=== PATIENT | male | born 1965 | race Caucasian/White ===

== ENCOUNTER 2020-05-17 01:24 | Emergency (ER) | payer BC, OTHER, SELFPAY ==
[2020-05-17 01:27] VITALS: BP 129/81; PULSE 96; RESP 20; TEMP 35.8; O2SAT 100
--- NOTE | 2020-05-17 01:44 | ED.ALLEREA ---
HPI - Allergic Reaction General Chief complaint: Allergic Reaction Stated complaint: hives Time Seen by Provider: 05/17/20 01:27 Source: RN notes reviewed History of Present Illness HPI narrative: Patient presents to emergency department from home for allergic reaction. Patient states that this evening began to notice some swelling and redness in his right hand. States that at that time he thought was possibly his eczema flaring up but the symptoms had progressed. He states he did take 50 mg of Benadryl at approximately 8 PM as well for the symptoms he states he then began to develop hives on his right lateral abdomen he denies having any swelling of the lips or tongue shortness of breath nausea vomiting or any other symptoms. He states he has had 2 similar episodes before in the past both resolved with steroids. He denies any new medications denies any new foods soaps or lotions Related Data Home Medications Medication Instructions Recorded Confirmed atorvastatin 40 mg tablet 40 mg PO DAILY 06/12/19 01/22/20 diclofenac sodium 75 mg 75 mg PO BID 06/12/19 01/22/20 tablet,delayed release guaifenesin 400 mg tablet 400 mg PO Q4H PRN 06/12/19 01/22/20 lisinopril 40 mg tablet 40 mg PO DAILY 06/12/19 01/22/20 nortriptyline 50 mg capsule 50 mg PO DAILY 06/12/19 01/22/20 dicyclomine 10 mg capsule 30 mg PO BID cap 01/22/20 01/22/20 Allergies Allergy/AdvReac Type Severity Reaction Status Date / Time bacitracin Allergy Unknown Unknown Verified 05/17/20 01:31 cephalexin Allergy Unknown Unknown Verified 05/17/20 01:31 CEPHALEXIN MONOHYDRATE Allergy Intermediate RASH Uncoded 06/12/19 14:56 Review of Systems Review of Systems: Narrative: Gen.: Denies fevers or chills ENT: Denies swelling of the lips or tongue Respiratory: Denies shortness of breath or cough CV: Denies chest pain or palpitations GI: Denies abdominal pain nausea, emesis or diarrhea Musculoskeletal: Denies back pain or muscle pain Neuro: Denies numbness, tingling, weakness or focal weakness Skin: See HPI Except as documented, all other systems reviewed and negative PMFSH Past Medical History Medical History (Updated 05/17/20 @ 04:50 by Shan Russell DO) Chronic sinusitis Hyperlipidemia Hypertension Knee pain, chronic Type 2 diabetes mellitus Surgical History Surgical History H/O sinus surgery H/O wrist surgery Hx of appendectomy Family History Family History Mother Hypertension Family history of malignant neoplasm Family history of diabetes mellitus in first degree relative Family history of heart disease in male family member before age 55 Diabetes mellitus Sibling Hypertension Family history of malignant neoplasm Diabetes mellitus Social History Social History Smoking status: Former smoker Alcohol intake: current Exam Narrative: Exam Narrative: APPEARANCE: No acute distress, nontoxic, resting in bed EYES: EOMI HEENT: Normocephalic, atraumatic, OMM no swelling of lips or tongue RESPIRATORY: No respiratory distress Clear to auscultation bilaterally with no rhonchi wheezing or rales. CARDIOVASCULAR: Regular rate and rhythm without murmurs rubs or gallops. ABDOMINAL: Soft, nontender, nondistended, no rebound or guarding MUSCULOSKELETAl: Moves all extremities. No clubbing, cyanosis or edema. Swelling of the right hand in the thenar eminence with mild erythema of the palm of the right hand no erythema the dorsal aspect of the hand and no swelling or erythema proximal to the wrist, radial pulses 2+ full flexion-extension of all 5 MCP and IP joints NEURO: Awake and alert. Following commands, speech normal, no focal deficits SKIN:: Warm, dry. Urticaria over the right lateral inferior abdomen PSYCHIATRIC: Normal affect/mood, Course Course Emergency Course: Patient given dexter
[2020-05-17] MEDS: FAMOTIDINE 20 MG/2 ML VIAL IV PUSH (02:01)
[2020-05-17] MEDS: methylPREDNISolone SOD SUCC 125 MG VIAL IV PUSH (02:02)
[2020-05-17] MEDS: diphenhydrAMINE HCl INJ 50 MG/ML VIAL 25 MG IV PUSH (02:46)
[2020-05-17 02:47] VITALS: BP 110/89; PULSE 87; RESP 18; O2SAT 99
--- NOTE | 2020-05-17 03:30 | PC.NURSE ---
this rn went into room 6 to check on pt, pt states he's still itchy, but less itchy. pt also states his right hand is still very swollen. notified.
[2020-05-17 05:02] VITALS: BP 130/87; PULSE 80; RESP 19; O2SAT 99
== END 2020-05-17 05:04 | disposition home or self-care (01) ==
PROVIDERS: Emergency Provider Emergency Medicine; PCP Family Medicine
DX: L50.0 Allergic urticaria (principal); E78.5 Hyperlipidemia, unspecified; I10 Essential (primary) hypertension; E11.9 Type 2 diabetes mellitus without complications; Z87.891 Personal history of nicotine dependence
CPT/HCPCS: 96374; 96375; 99284; J1200; J2930

== ENCOUNTER 2020-06-01 06:50 | Emergency (ER) | payer BC, OTHER, SELFPAY ==
[2020-06-01 06:53] VITALS: BP 129/69; PULSE 97; RESP 12; TEMP 36.4; O2SAT 99
--- NOTE | 2020-06-01 07:19 | ED.ALLEREA ---
HPI - Allergic Reaction General Chief complaint: Skin/Abscess/Foreign Body Stated complaint: Hives Time Seen by Provider: 06/01/20 07:12 Source: patient Mode of arrival: ambulatory Limitations: no limitations History of Present Illness HPI narrative: Patient is a 42-year-old male complaining of hives all over his arms chest and back after taking ketorolac yesterday. Patient states that he had a similar episode a few weeks back when he also took ketorolac. Patient denies any facial swelling, lip swelling, tongue swelling, throat swelling. He denies dysphagia or shortness of breath. He denies extremity swelling. Related Data Home Medications Medication Instructions Recorded Confirmed atorvastatin 40 mg tablet 40 mg PO DAILY 06/12/19 01/22/20 diclofenac sodium 75 mg 75 mg PO BID 06/12/19 01/22/20 tablet,delayed release guaifenesin 400 mg tablet 400 mg PO Q4H PRN 06/12/19 01/22/20 lisinopril 40 mg tablet 40 mg PO DAILY 06/12/19 01/22/20 nortriptyline 50 mg capsule 50 mg PO DAILY 06/12/19 01/22/20 dicyclomine 10 mg capsule 30 mg PO BID cap 01/22/20 01/22/20 Allergies Allergy/AdvReac Type Severity Reaction Status Date / Time bacitracin Allergy Unknown Unknown Verified 06/01/20 07:13 cephalexin Allergy Unknown Unknown Verified 06/01/20 07:13 ketorolac Allergy Hives Verified 06/01/20 07:13 CEPHALEXIN MONOHYDRATE Allergy Intermediate RASH Uncoded 06/01/20 07:13 Review of Systems Review of Systems: All systems reviewed & are unremarkable except as noted in HPI and below Constitutional: Constitutional: Denies body ache(s), Denies chills, Denies excessive sweating, Denies fatigue, Denies fever(s), Denies headache(s), Denies lethargy, Denies malaise, Denies weakness and Denies weight loss Eyes: Eyes: Denies blurry vision, Denies change in vision and Denies loss of vision ENT: Denies dizziness, Denies ear discharge, Denies headache(s), Denies lip swelling, Denies epistaxis, Denies nasal congestion, Denies neck pain, Denies throat swelling and Denies tongue swelling Cardiovascular: Cardiovascular: Denies chest pain, Denies chest pain at rest, Denies chest pain with activity, Denies diaphoresis, Denies rapid heart rate, Denies edema, Denies irregular heart rhythm, Denies lightheadedness, Denies palpitations, Denies dyspnea and Denies dyspnea on exertion Respiratory: Respiratory: Denies chest congestion, Denies cough, Denies hemoptysis, Denies dyspnea and Denies dyspnea on exertion Gastrointestinal: Gastrointestinal: Denies abdominal pain, Denies melena, Denies hematochezia, Denies diarrhea, Denies nausea, Denies vomiting and Denies hematemesis Musculoskeletal: Musculoskeletal: Denies abnormal gait, Denies deformity, Denies joint swelling, Denies limited range of motion, Denies neck pain and Denies numbness Neurologic: Denies Abnormal speech present, Denies abnormal gait, Denies confusion, Denies dizziness, Denies headache(s), Denies focal weakness, Denies loss of vision, Denies numbness, Denies Other visual disturbances, Denies Sensory deficit (Neuro) and Denies weakness Psychiatric: Psychiatric: Denies confusion, Denies depression, Denies auditory hallucinations, Denies homicidal ideation and Denies suicidal ideation Endocrine: Endocrine: Denies cold intolerance, Denies excessive sweating, Denies fatigue, Denies heat intolerance and Denies palpitations Hematologic/Lymphatic: Hematologic/Lymphatic: Denies easy bleeding and Denies easy bruising Allergic/Immunologic: Allergic/Immunologic: Denies lip swelling, Denies throat swelling and Denies tongue swelling PMFSH Past Medical History Medical History (Updated 06/01/20 @ 07:23 by Shan Carrillo MD) Chronic sinusitis Hyperlipidemia Hypertension Knee pain, chronic Type 2 diabetes mellitus Surgical History Surgical History H/O sinus surgery H/O wrist surgery Hx of appendectomy Family History Family History (Reviewed 0
[2020-06-01] MEDS: FAMOTIDINE 20 MG TABLET 40 MG PO (07:23)
[2020-06-01] MEDS: methylPREDNISolone SOD SUCC 125 MG VIAL IM (07:58)
[2020-06-01 08:16] VITALS: BP 126/78; PULSE 85; RESP 17; O2SAT 99
== END 2020-06-01 08:21 | disposition home or self-care (01) ==
PROVIDERS: Emergency Provider Emergency Medicine; PCP Family Medicine
DX: T78.40XA Allergy, unspecified, initial encounter (principal); I10 Essential (primary) hypertension; E78.5 Hyperlipidemia, unspecified; E11.9 Type 2 diabetes mellitus without complications
CPT/HCPCS: 96372; 99283; A9270; J2930

== ENCOUNTER 2021-05-10 07:15 | Outpatient (CLI) | payer BC, OTHER, SELFPAY ==
--- NOTE | ~2021-05-10 | XR_ITS ---
EXAMINATION: XR knee RT 3V DATE: 05/10/2021 17:34 INDICATION: Right knee pain. Patellar femoral syndrome. TECHNIQUE: 3 views of right knee were obtained. COMPARISON: None. FINDINGS: Bone alignment is normal. No fracture. There is mild osteoarthritis of patellofemoral john rtment characterized by tiny marginal osteophytes. No knee joint effusion. IMPRESSION: 1. Mild right knee osteoarthritis. Reviewed, dictated and finalized at location A.
== END 2021-05-10 07:16 | disposition home or self-care (01) ==
LOC: ANHIMG 17:15
PROVIDERS: PCP Family Medicine
DX: M17.11 Unilateral primary osteoarthritis, right knee (principal)
CPT/HCPCS: 73562

== ENCOUNTER → 2021-12-09 13:49 | Outpatient (CLI) | payer BC, OTHER, SELFPAY ==
--- NOTE | ~2021-12-09 | MR_ITS ---
EXAMINATION: MR brain IAC wo/w con DATE: 12/09/2021 15:06 INDICATION: Asymmetrical hearing loss. TECHNIQUE: Magnetic resonance imaging (MRI) of the brain, brainstem, and internal auditory canals was performed without and with 20 mL MultiHance intravenous contrast. COMPARISON: None. FINDINGS: There is no intracranial hemorrhage, acute infarction, or abnormal intracranial mass lesion . 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 The ventricles are normal in size. T he orbits are normal. There is mucosal thickening in left sphenoid sinus. The internal auditory canal s and inner and middle ears are normal. The mastoid air cells are normal. IMPRESSION: 1. Normal brain. Reviewed, dictated and finalized at location A. IMPRESSION: 1. Normal brain.
[2021-12-09 14:37] LABS: Estimated Glomerular Filt Rate > 60
== END ==
PROVIDERS: PCP Family Medicine; Visit Provider Otolaryngology
DX: H91.93 Unspecified hearing loss, bilateral (principal)
CPT/HCPCS: 70553; A9577

== ENCOUNTER 2023-08-10 13:31 | Emergency (ER) | payer BC, OTHER, SELFPAY ==
[2023-08-10 13:43] VITALS: BP 139/80; PULSE 79; RESP 16; TEMP 36.8; O2SAT 98
--- NOTE | 2023-08-10 14:49 | ED.URI ---
HPI - URI/Sore Throat General Chief Complaint: Upper Respiratory Infection Stated Complaint: Sore Throat/Ears Irritation Time Seen by Provider: 08/10/23 14:30 Source: patient and RN notes reviewed Mode of arrival: ambulatory Limitations: no limitations History of Present Illness HPI Narrative: 57-year-old male presents concern for 5 day history of sinus congestion, sore throat, ear pain, fatigue. Reports history of chronic sinus problems. He recently had a sinus CT which told him he could have an infection brewing, they did not treat him at that time. He reports he has been taking Loretta D without relief. MD elicited complaint: sore throat Related Data Home Medications Medication Instructions Recorded Confirmed atorvastatin 40 mg tablet 40 mg PO DAILY 06/12/19 08/10/23 diclofenac sodium 75 mg 75 mg PO BID 06/12/19 08/10/23 tablet,delayed release lisinopril 40 mg tablet 40 mg PO DAILY 06/12/19 08/10/23 nortriptyline 50 mg capsule 50 mg PO DAILY 06/12/19 08/10/23 dicyclomine 10 mg capsule 30 mg PO BID 01/22/20 08/10/23 clomiphene citrate 50 mg tablet 25 mg PO DAILY 07/21/20 08/10/23 Allergies Allergy/AdvReac Type Severity Reaction Status Date / Time ketorolac Allergy Mild Hives Verified 08/10/23 13:41 bacitracin Allergy Unknown Unknown Verified 08/10/23 13:41 cephalexin Allergy Unknown Unknown Verified 08/10/23 13:41 CEPHALEXIN MONOHYDRATE Allergy Intermediate RASH Uncoded 08/10/23 13:41 Review of Systems Review of Systems: CONSTITUTIONAL: Reports malaise, fatigue EYES: Denies visual changes, redness, or discharge. ENT: Reports rhinorrhea, congestion, sinus pain, otalgia and sore throat. CARDIOVASCULAR: Denies chest pain, palpitations, or edema. RESPIRATORY: Reports cough. Denies dyspnea. GASTROINTESTINAL: Denies abdominal pain, nausea, vomiting, diarrhea SKIN: Denies rash or itching. MUSCULOSKELETAL: Denies myalgia. NEUROLOGIC: Denies headache. All systems reviewed & are unremarkable except as noted in HPI and below PMFSH Past Medical History Medical History (Updated 08/10/23 @ 14:51 by Jo Ann Ramos NP) Chronic sinusitis Hyperlipidemia Hypertension Knee pain, chronic Type 2 diabetes mellitus Surgical History Surgical History H/O sinus surgery H/O wrist surgery Hx of appendectomy Family History Family History Mother Hypertension Family history of malignant neoplasm Family history of diabetes mellitus in first degree relative Family history of heart disease in male family member before age 55 Diabetes mellitus Sibling Hypertension Family history of malignant neoplasm Diabetes mellitus Social History Social History Smoking status: Former smoker Alcohol intake: current Gender identity (if verbalized by the patient): Male Comments At time of signature, agree with nursing past medical, surgical, social and family history. There is no relevant family history pertinent to the presenting complaint Exam Narrative: GENERAL: Nontoxic-appearing, well-nourished, and in no acute distress. HEAD: Normocephalic EYES: PERRLA, conjunctivae clear ENT: Nares clear. Mucous membranes moist. TM pearly herbert with dull light reflex bilaterally; no tragal tenderness. Oropharynx not erythematous without lesions. Tonsils not enlarged and without exudate, no drooling, no hoarseness, no trismus, uvula midline. NECK: Supple. No lymphadenopathy CHEST: Clear to auscultation, breath sounds equal. No wheezing, rhonchi, rales, or stridor. No respiratory distress, speaks in full sentences. HEART: Regular rate and rhythm. No murmur heard. SKIN: Warm, dry, no rash. NEURO: Alert and oriented x3. PSYCH: Normal mood and affect Course Course Emergency Course: Patient is aware of diagnosis, understands and agrees to treatment plan. A
== END 2023-08-10 14:55 | disposition home or self-care (01) ==
PROVIDERS: Emergency Provider Nurse Practitioner; PCP Physician Assistant
DX: J01.90 Acute sinusitis, unspecified (principal); Z87.891 Personal history of nicotine dependence; E78.5 Hyperlipidemia, unspecified; I10 Essential (primary) hypertension; E11.9 Type 2 diabetes mellitus without complications
CPT/HCPCS: 87081; 87804; 87880; 99213; G0463

== ENCOUNTER 2023-09-09 00:47 | Emergency (ER) | payer BC, OTHER, SELFPAY ==
--- NOTE | ~2023-09-09 | XR_ITS ---
EXAMINATION: XR ribs LT 2V w CXR 2V DATE: 09/09/2023 01:51 INDICATION: Left rib pain post ground-level fall TECHNIQUE: PA and lateral views of the chest and 3 views of the left ribs were obtained. COMPARISON: Chest radiograph dated 01/29/2013 FINDINGS: Hypoplastic left first rib. No rib fractures identified. Small sclerotic lesion at the anterior left eighth rib. Mild decreased bilateral lung volumes. No focal airspace opacities, pulmonary edema, pleu ral effusion or pneumothorax. Heart size is normal. Instrumentation for partially visualized combined anterior and posterior spinal fusion in the lower lumbar spine. IMPRESSION: 1. No rib fracture or acute cardiopulmonary disease. 2. Small sclerotic lesion at the anterior left eighth rib, potentially bone island but new since CT d ated 06/30/2013 and could not exclude bone metastases. Consider bone scan and correlation with PSA lev el for further evaluation. Reviewed, dictated and finalized at location A. NT SERV[employer] CONSULTANT IMPRESSION: 1. No rib fracture or acute cardiopulmonary disease. 2. Small sclerotic lesion at the anterior left eighth rib, potentially bone isl and but new since CT dated 06/30/2013 and could not exclude bone metastases. Con model maker plastic bone scan and correlation with PSA level for further evaluation.
[2023-09-09 00:49] VITALS: BP 166/90; PULSE 119; RESP 22; TEMP 36.8; O2SAT 100
[2023-09-09 01:31] VITALS: BP 178/98; PULSE 110; RESP 17; TEMP 36.5; O2SAT 98
--- NOTE | 2023-09-09 02:41 | ED.FALL ---
HPI - Fall General Chief Complaint: Fall Stated Complaint: fall, rib pain Time Seen by Provider: 09/09/23 01:25 Source: patient Limitations: no limitations History of Present Illness HPI Narrative: Patient is a 58-year-old male presents to the emergency department complaining of a fall and left rib pain. Patient states that approximately 9:30 p.m. 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 Patient denies hitting his head or having loss of consciousness. Patient denies use of blood thinners. Patient denies pain anywhere else. Patient admits to being ambulatory since the event. Patient has not tried any medications for the pain. Patient states that he fell on the carpet. Patient denies any blood loss. Patient admits to the pain in his left ribs being worse when he takes a big deep breath in or moves. Patient otherwise denies any recent illness. Patient denies preceding chest pain or difficulty breathing, cough, fever, nausea, vomiting, abdominal pain, urinary incontinence, stool incontinence, numbness, weakness. Related Data Home Medications Medication Instructions Recorded Confirmed atorvastatin 40 mg tablet 40 mg PO DAILY 06/12/19 08/10/23 diclofenac sodium 75 mg 75 mg PO BID 06/12/19 08/10/23 tablet,delayed release lisinopril 40 mg tablet 40 mg PO DAILY 06/12/19 08/10/23 nortriptyline 50 mg capsule 50 mg PO DAILY 06/12/19 08/10/23 dicyclomine 10 mg capsule 30 mg PO BID 01/22/20 08/10/23 clomiphene citrate 50 mg tablet 25 mg PO DAILY 07/21/20 08/10/23 Allergies Allergy/AdvReac Type Severity Reaction Status Date / Time ketorolac Allergy Mild Hives Verified 08/10/23 13:41 bacitracin Allergy Unknown Unknown Verified 08/10/23 13:41 cephalexin Allergy Unknown Unknown Verified 08/10/23 13:41 CEPHALEXIN MONOHYDRATE Allergy Intermediate RASH Uncoded 08/10/23 13:41 Review of Systems Review of Systems: A 10 system review of systems was completed on the patient and is negative except for what is stated in the HPI. Nursing and ancillary documentation was reviewed. [facility] Past Medical History Medical History (Updated 02/18/24 @ 02:45 by Surya Bailey DO) Chronic sinusitis Hyperlipidemia Hypertension Knee pain, chronic Type 2 diabetes mellitus Surgical History Surgical History H/O sinus surgery H/O wrist surgery Hx of appendectomy Family History Family History Mother Hypertension Family history of malignant neoplasm Family history of diabetes mellitus in first degree relative Family history of heart disease in male family member before age 55 Diabetes mellitus Sibling Hypertension Family history of malignant neoplasm Diabetes mellitus Social History Social History Smoking status: Former smoker Alcohol intake: current Gender identity (if verbalized by the patient): Male Comments At time of signature, I have reviewed and agree with nursing past medical, surgical, social and family history unless otherwise noted. Please see the nursing chart for further information. There is no relevant family history pertinent to the presenting complaint. Exam Narrative: CONST: No acute distress. Well nourished. HENMT: Head is normocephalic and atraumatic. Moist mucous membranes. No posterior oropharynx erythema. EYES: No conjunctival icterus, injection, or pallor. PERRL. NECK: No meningeal signs. RESP: Able to speak in full sentences. Normal respiratory effort. CTAB. CARDIO: Regular rate. Regular rhythm. 2+ DP and radial pulses bilaterally. GI: Nondistended. No tenderness to palpation. Soft. : No CVA tenderness to palpation. SKIN: No rashes or lesions noted on exposed skin. NEURO: Oriented x3. Moves all extremities. N
[2023-09-09] MEDS: HYDROcodone/acetaminophen (*CRX) 5-325 MG TABLET 1 TAB PO (02:50)
[2023-09-09] MEDS: LIDOCAINE 5% PATCH 1 PATCH TRANSDERM (02:50)
[2023-09-09] MEDS: KETOROLAC 30 MG/ML VIAL (*BKC) IM (02:50)
[2023-09-09 02:56] VITALS: BP 154/86; PULSE 103; RESP 16; O2SAT 97
--- NOTE | 2023-09-09 15:18 | PC.NURSE ---
pt called and asked to follow up with pcp in regards to a possible bone lesion, this was found by Dr Oliva. pt agreeable to speak to pcp
== END 2023-09-09 03:05 | disposition home or self-care (01) ==
PROVIDERS: Emergency Provider Student in an Organized Health Care Education/Training Program; PCP Physician Assistant
DX: S20.212A Contusion of left front wall of thorax, initial encounter (principal); E78.5 Hyperlipidemia, unspecified; I10 Essential (primary) hypertension; E11.9 Type 2 diabetes mellitus without complications; Z87.891 Personal history of nicotine dependence; Z79.84 Long term (current) use of oral hypoglycemic drugs; M89.9 Disorder of bone, unspecified; W01.0XXA Fall on same level from slipping, tripping and stumbling without subsequent striking against object, initial encounter
CPT/HCPCS: 71046; 71100; 96372; 99283; A9270; J1885

== ENCOUNTER 2024-03-04 15:54 | Outpatient (CLI) | payer BC, OTHER, SELFPAY ==
--- NOTE | ~2024-03-04 | MR_ITS ---
EXAMINATION: MR ankle LT wo con DATE: 03/04/2024 16:35 INDICATION: Left heel pain. TECHNIQUE: Magnetic resonance imaging (MRI) of the left ankle was performed without intravenous contr ast. Sequences included sagittal PD-weighted FS FSE, sagittal PD-weighted FSE, coronal PD-weighted FS FSE, coronal PD-weighted FSE, axial PD-weighted FS FSE, and axial PD-weighted FSE. COMPARISON: None. FINDINGS: Medial ankle ligaments: There are changes of prior sprain of the deltoid ligament characterized by thickening and increased s ignal involving the superficial component. Lateral ankle ligaments: There is a complete tear of anterior talofibular ligament with heterotopic ossification. There are ch anges of prior sprains of calcaneofibular ligament and anterior tibiofibular ligament characterized b y thickening and increased signal intensity. There is disorganization of some of the fibers of process analyst ior talofibular ligament. Posterior tibiofibular ligament is normal. Tendons: The anterior and medial ankle tendons and peroneal tendons are normal. There is mild Achilles tendino sherif. There is a skin marker overlying the distal attachment. Plantar fascia: There is plantar fasciitis characterized by thickening and increased signal involving the middle comp onent. Bones/other: There is partial-thickness cartilage loss of talar dome. Fluid: There is no joint effusion. IMPRESSION: 1. Mild Achilles tendinopathy. 2. Plantar fasciitis. 3. Changes of medial and lateral ankle sprains. 4. Mild chondrosis of the talar dome. Reviewed, dictated and finalized at location A.
== END 2024-03-04 15:55 ==
LOC: MICIMG 15:54
PROVIDERS: PCP Podiatrist Foot & Ankle Surgery; Visit Provider Podiatrist Foot & Ankle Surgery
DX: M76.62 Achilles tendinitis, left leg (principal); M79.672 Pain in left foot; M66.372 Spontaneous rupture of flexor tendons, left ankle and foot; S93.492A Sprain of other ligament of left ankle, initial encounter; X58.XXXA Exposure to other specified factors, initial encounter
CPT/HCPCS: 73721

== ENCOUNTER 2024-03-20 08:15 | Emergency (ER) | payer BC, OTHER, SELFPAY ==
[2024-03-20 08:27] VITALS: BP 128/70; PULSE 76; RESP 16; TEMP 37.1; O2SAT 98
--- NOTE | 2024-03-20 08:35 | ED.URI ---
HPI - URI/Sore Throat General Chief Complaint: Upper Respiratory Infection Stated Complaint: sinus issue,cough Time Seen by Provider: 03/20/24 08:35 Source: patient, RN notes reviewed and old records reviewed Mode of arrival: ambulatory Limitations: no limitations History of Present Illness HPI Narrative: Patient presents with complaints of sinus pain and pressure for 3-4 days. He does have mild right-sided facial swelling. He is diabetic, has a history of sinus surgeries due to frequent sinus infections. He denies any injury or trauma. Denies fever, chills, sweats. He reports purulent drainage began yesterday. Complains of postnasal drip and cough. Denies ear pain, but does report that he had injection to right TM a few days ago to treat Meniere's disease Related Data Home Medications Medication Instructions Recorded Confirmed atorvastatin 40 mg tablet 40 mg PO DAILY 06/12/19 03/20/24 nortriptyline 50 mg capsule 50 mg PO DAILY 06/12/19 03/20/24 dicyclomine 10 mg capsule 30 mg PO BID 01/22/20 03/20/24 clomiphene citrate 50 mg tablet 25 mg PO DAILY 07/21/20 03/20/24 diclofenac sodium 50 mg 50 mg PO DAILY 03/20/24 03/20/24 tablet,delayed release lisinopril 10 mg tablet 10 mg PO DAILY 03/20/24 03/20/24 triamterene 37.5 1 tablet PO DAILY 03/20/24 03/20/24 mg-hydrochlorothiazide 25 mg tablet vilazodone 10 mg tablet 10 mg PO DAILY 03/20/24 03/20/24 Allergies Allergy/AdvReac Type Severity Reaction Status Date / Time cephalexin Allergy Mild Rash Verified 03/20/24 08:18 ketorolac Allergy Mild Hives Verified 03/20/24 08:18 bacitracin Allergy Unknown Unknown Verified 03/20/24 08:18 Review of Systems Review of Systems: All systems reviewed & are unremarkable except as noted in HPI and below Constitutional: Constitutional: Reports no additional constitutional complaints ENT: Reports system reviewed and no additional complaints, except as documented and Reports as per HPI Cardiovascular: Cardiovascular: Reports no additional cardiovascular complaints Respiratory: Respiratory: Reports as per HPI and Reports no additional respiratory complaints Gastrointestinal: Gastrointestinal: Reports no additional gastrointestinal complaints PMFSH Past Medical History Medical History (Updated 03/20/24 @ 08:42 by Mel Tuttle APRN) Chronic sinusitis Hyperlipidemia Hypertension Knee pain, chronic Type 2 diabetes mellitus Surgical History Surgical History H/O sinus surgery H/O wrist surgery Hx of appendectomy Family History Family History Mother Hypertension Family history of malignant neoplasm Family history of diabetes mellitus in first degree relative Family history of heart disease in male family member before age 55 Diabetes mellitus Sibling Hypertension Family history of malignant neoplasm Diabetes mellitus Social History Social History Smoking status: Former smoker Alcohol intake: current Gender identity (if verbalized by the patient): Male Exam Const: General: cooperative, no acute distress, alert and awake Orientation/consciousness: oriented to person, oriented to place and oriented to time Other: Appears uncomfortable HENMT: Head: normal to inspection Face and sinus: sinus tenderness maxillary (Right-sided, trace facial swelling) Mouth: Yes moist mucous membranes Throat: posterior oropharynx abnormal and uvula midline Other: Erythematous posterior oropharynx, copious postnasal drainage Resp: Effort & Inspection: normal respiratory effort and able to speak in complete sentences Auscultation: clear to auscultation bilaterally, no crackles, no rales, no rhonchi and no wheezes Cardio: Palpation: normal PMI Rate: regular rate Rhythm: regular rhythm Heart sounds: S1 normal heart sound present and S2 normal hear
== END 2024-03-20 08:49 | disposition home or self-care (01) ==
PROVIDERS: Emergency Provider Nurse Practitioner Family; PCP Physician Assistant
DX: J01.90 Acute sinusitis, unspecified (principal); Z87.891 Personal history of nicotine dependence; E78.5 Hyperlipidemia, unspecified; I10 Essential (primary) hypertension; E11.9 Type 2 diabetes mellitus without complications; H81.09 Meniere's disease, unspecified ear
CPT/HCPCS: 99213; G0463

== ENCOUNTER 2024-04-23 14:29 | Emergency (ER) | payer BC, OTHER, SELFPAY ==
[2024-04-23 14:33] VITALS: BP 146/78; PULSE 84; RESP 18; TEMP 36.7; O2SAT 94
--- NOTE | 2024-04-23 14:38 | ED.URI ---
HPI - URI/Sore Throat General Chief Complaint: Headache Stated Complaint: Sinus Headache Time Seen by Provider: 04/23/24 14:37 Source: patient Mode of arrival: ambulatory Limitations: no limitations History of Present Illness HPI Narrative: Patient is a 50-year-old male who presents with sinus headache, sinus pressure and congestion for a week. Patient has been taking [id number] medication with no relief. Patient states after taking Sudafed from behind the counter x2 doses. Denies any fever, chills, nausea, vomiting, diarrhea, ear pain, sore throat. Patient was seen and diagnosed with sinusitis 03/20 and treated with Augmentin. Patient has history of sinus surgery and no longer has septum Related Data Home Medications Medication Instructions Recorded Confirmed atorvastatin 40 mg tablet 40 mg PO DAILY 06/12/19 03/20/24 nortriptyline 50 mg capsule 50 mg PO DAILY 06/12/19 03/20/24 clomiphene citrate 50 mg tablet 25 mg PO DAILY 07/21/20 03/20/24 lisinopril 10 mg tablet 20 mg PO DAILY 03/20/24 03/20/24 triamterene 37.5 1 tablet PO DAILY 03/20/24 03/20/24 mg-hydrochlorothiazide 25 mg tablet vilazodone 10 mg tablet 10 mg PO DAILY 03/20/24 03/20/24 buspirone 10 mg tablet mg 04/23/24 cyclobenzaprine 10 mg tablet mg 04/23/24 lorazepam 1 mg tablet mg 04/23/24 montelukast 10 mg tablet mg 04/23/24 semaglutide 3 mg tablet (Rybelsus) mg PO 04/23/24 Allergies Allergy/AdvReac Type Severity Reaction Status Date / Time cephalexin Allergy Mild Rash Verified 04/23/24 14:32 ketorolac Allergy Mild Hives Verified 04/23/24 14:32 bacitracin Allergy Unknown Unknown Verified 04/23/24 14:32 Review of Systems Review of Systems: All systems reviewed & are unremarkable except as noted in HPI and below Constitutional: Constitutional: Denies body ache(s), Denies chills, Denies fatigue, Denies fever(s), Denies headache(s), Denies malaise and Denies weakness Eyes: Eyes: Denies blurry vision, Denies itchy eyes and Denies loss of vision ENT: Denies otalgia, Denies headache(s), Reports nasal congestion, Reports sinus pain, Reports sinus pressure and Denies sore throat Cardiovascular: Cardiovascular: Denies chest pain, Denies irregular heart rhythm and Denies dyspnea Respiratory: Respiratory: Reports cough and Denies dyspnea Gastrointestinal: Gastrointestinal: Denies abdominal pain, Denies diarrhea, Denies nausea and Denies vomiting Musculoskeletal: Musculoskeletal: Denies back pain, Denies myalgias and Denies arthralgias Integumentary/Breasts: Skin/Breast: Denies pruritus and Denies rash Neurologic: Denies headache(s), Denies loss of vision and Denies weakness Psychiatric: Psychiatric: Reports no additional psychiatric complaints Endocrine: Endocrine: Denies fatigue Allergic/Immunologic: Allergic/Immunologic: Denies itchy eyes PMFSH Past Medical History Medical History (Updated 04/23/24 @ 14:59 by Opal Martino APRN) Chronic sinusitis Hyperlipidemia Hypertension Knee pain, chronic Type 2 diabetes mellitus Surgical History Surgical History H/O sinus surgery H/O wrist surgery Hx of appendectomy Family History Family History Mother Hypertension Family history of malignant neoplasm Family history of diabetes mellitus in first degree relative Family history of heart disease in male family member before age 55 Diabetes mellitus Sibling Hypertension Family history of malignant neoplasm Diabetes mellitus Social History Social History Smoking status: Former smoker Alcohol intake: current Gender identity (if verbalized by the patient): Male Comments At time of signature, agree with nursing past medical, surgical, social and family history. There is no relevant family history pertinent to the presenting complaint. Exam Const: General: c
== END 2024-04-23 15:05 | disposition home or self-care (01) ==
PROVIDERS: Emergency Provider Nurse Practitioner Family; PCP Physician Assistant
DX: J32.9 Chronic sinusitis, unspecified (principal); Z87.891 Personal history of nicotine dependence; E78.5 Hyperlipidemia, unspecified; I10 Essential (primary) hypertension; E11.9 Type 2 diabetes mellitus without complications
CPT/HCPCS: 99213; G0463

== ENCOUNTER 2024-07-26 11:47 | Emergency (ER) | payer BC, OTHER, SELFPAY ==
--- NOTE | 2024-07-26 11:48 | ED.URI ---
HPI - URI/Sore Throat General Chief Complaint: Upper Respiratory Infection Stated Complaint: Sinus Time Seen by Provider: 07/26/24 12:16 Source: patient and RN notes reviewed Mode of arrival: ambulatory Limitations: no limitations History of Present Illness HPI Narrative: 58-year-old male presents concern for 1/2 week history of sinus congestion, pressure, sinus pain, sinus headache. Reports congested he has been taking [id number] medications without relief MD elicited complaint: cough, nasal congestion and sinus pain Related Data Home Medications ?Medication ?Instructions ?Recorded ?Confirmed ?Last Taken ?Type atorvastatin 40 mg tablet 40 mg PO DAILY 06/12/19 03/20/24 Unknown History nortriptyline 50 mg capsule 50 mg PO DAILY 06/12/19 03/20/24 Unknown History clomiphene citrate 50 mg tablet 25 mg PO DAILY 07/21/20 03/20/24 Unknown History lisinopril 10 mg tablet 20 mg PO DAILY 03/20/24 03/20/24 Unknown History triamterene 37.5 1 tablet PO DAILY 03/20/24 03/20/24 Unknown History mg-hydrochlorothiazide 25 mg tablet vilazodone 10 mg tablet 10 mg PO DAILY 03/20/24 03/20/24 Unknown History buspirone 10 mg tablet mg 04/23/24 Unknown History lorazepam 1 mg tablet mg 04/23/24 Unknown History montelukast 10 mg tablet mg 04/23/24 Unknown History semaglutide 3 mg tablet (Rybelsus) mg PO 04/23/24 Unknown History nebivolol 20 mg tablet mg 07/26/24 Unknown History semaglutide 7 mg tablet (Rybelsus) mg PO 07/26/24 Unknown History Allergies Allergy/AdvReac Type Severity Reaction Status Date / Time cephalexin Allergy Mild Rash Verified 07/26/24 11:57 ketorolac Allergy Mild Hives Verified 07/26/24 11:57 bacitracin Allergy Unknown Unknown Verified 07/26/24 11:57 Review of Systems Review of Systems: CONSTITUTIONAL: Denies malaise, chills, sweats, or fever. EYES: Denies visual changes, redness, or discharge. ENT: Reports rhinorrhea, congestion, sinus pain CARDIOVASCULAR: Denies chest pain, palpitations, or edema. RESPIRATORY: Reports cough and chest congestion. Denies dyspnea. GASTROINTESTINAL: Denies abdominal pain, nausea, vomiting, diarrhea SKIN: Denies rash or itching. MUSCULOSKELETAL: Denies myalgia. NEUROLOGIC: Reports headache. All systems reviewed & are unremarkable except as noted in HPI and below PMFSH Past Medical History Medical History (Updated 07/26/24 @ 12:24 by Jo Ann Ramos NP) Hypertension Knee pain, chronic Type 2 diabetes mellitus Hyperlipidemia Chronic sinusitis Surgical History Surgical History H/O wrist surgery Hx of appendectomy H/O sinus surgery Family History Family History Mother Hypertension Family history of malignant neoplasm Family history of diabetes mellitus in first degree relative Family history of heart disease in male family member before age 55 Diabetes mellitus Sibling Hypertension Family history of malignant neoplasm Diabetes mellitus Social History Social History Smoking status: Former smoker Alcohol intake: current Gender identity (if verbalized by the patient): Male Comments At time of signature, agree with nursing past medical, surgical, social and family history. There is no relevant family history pertinent to the presenting complaint Exam Narrative: GENERAL: Well-appearing, well-nourished, and in no acute distress. HEAD: Normocephalic EYES: PERRLA, conjunctivae clear ENT: Nares clear, sinus pain. Mucous membranes moist. TM pearly herbert with dull light reflex bilaterally; no tragal tenderness. Oropharynx not erythematous without lesions. Tonsils not enlarged and without exudate, no drooling, no hoarseness, no trismus, uvula midline. NECK: Supple. No lymphadenopathy CHEST: Clear to auscultation, breath sounds equal. No wheezing, rhonchi, rales, or stridor. No respiratory distress, speaks in full sentences. HEART: Regular rate and rhythm. No murmur heard. SKIN: Warm, dry, no rash. NEURO: Alert and oriented x3. PSYCH: Normal mood and affect Course Course Emergency Course: Patient is aware of diagnosis, understands and agrees to treatment plan. Anticipatory guidance given. Patient agrees to follow-up as directed and is aware of reasons to seek care at the emergency department. Portions of this record may have been created with voice recognition software Level of Care: Express Care Visit Vital Signs Vital signs: Vital Signs Temperature 97.7 F 07/26/24 11:58 Pulse Rate 90 07/26/24 11:58 Respiratory Rate 18 07/26/24 11:58 Blood Pressure 118/76 07/26/24 11:58 Pulse Oximetry 97 07/26/24 11:58 Oxygen Delivery Room Air 07/26/24 11:58 Temperature 97.7 F 07/26/24 11:58 Pulse Rate 90 07/26/24 11:58 Respiratory Rate 18 07/26/24 11:58 Blood Pressure 118/76 07/26/24 11:58 Pulse Oximetry 97 07/26/24 11:58 Oxygen Delivery Room Air 07/26/24 11:58 Reviewed. MDM - URI/Sore Throat MDM Narrative Medical decision making narrative: Differential diagnosis considered: Floyd virus, strep pharyngitis, allergic rhinitis, upper respiratory tract infection, sinusitis, rhinosinusitis, nasopharyngitis. viral pharyngitis, otitis media, otitis externa, pneumonia, bronchitis, viral cough syndrome, viral syndrome, and influenza. Exam findings show no acute concerns or changes; patient is non-toxic appearing and is in no distress. Patient is appropriate for outpatient treatment and follow-up. Lab Data Attestation: I reviewed the patient's lab results. Critical Care Time Critical Care Time Critical Care Time: No Discharge Plan Discharge Clinical Impression: Sinobronchitis Patient Disposition: Home, Self-Care Condition: Stable Instructions: Antibiotic Form, Sinusitis (ED), Acute Bronchitis (ED) Additional Instructions: Take medication as prescribed Recommend antihistamine such as Benadryl at night time and Zyrtec or Loretta during the day Also, recommend symptomatic treatment includes: rest, fluids, and increase humidity of the air at home. Recommend Acetaminophen as directed on the bottle to reduce fever, pain, headache. Avoid smoking/second-hand smoke. Please schedule a follow-up visit with your personal physician for further evaluation and treatment within 3-5days. Including recheck and discussion of your blood pressure. If your symptoms persist, change or worsen significantly before you can contact your personal physician then please, without delay, go to the emergency department for further evaluation. Patient Language: Ukrainian Prescriptions: New doxycycline monohydrate 100 mg tablet 100 mg PO BID 7 Days Qty: 14 0RF methylprednisolone [Medrol (Dusty)] 4 mg tablets,dose pack See Rx Instructions .ROUTE .COMPLEX Qty: 21 0RF Rx Instructions: orally per package directions No Action lisinopril 10 mg tablet 20 mg PO DAILY triamterene-hydrochlorothiazid 37.5-25 mg tablet 1 tablet PO DAILY vilazodone 10 mg tablet 10 mg PO DAILY buspirone 10 mg tablet montelukast 10 mg tablet lorazepam 1 mg tablet Rybelsus 3 mg tablet PO nebivolol 20 mg tablet Rybelsus 7 mg tablet PO nortriptyline 50 mg capsule 50 mg PO DAILY atorvastatin 40 mg tablet 40 mg PO DAILY Rx Instructions: TAKE 1/2 TABLET BY MOUTH EVERY EVENING. clomiphene citrate 50 mg tablet 25 mg PO DAILY Bystolic 10 mg tablet 10 mg PO DAILY Qty: 90 3RF Follow-up/Referrals: Ashu,GE Chase [Primary Care Provider] - Time of Disposition: 12:26
[2024-07-26 11:58] VITALS: BP 118/76; PULSE 90; RESP 18; TEMP 36.5; O2SAT 97
== END 2024-07-26 12:35 | disposition home or self-care (01) ==
PROVIDERS: Emergency Provider Nurse Practitioner; PCP Physician Assistant
DX: J32.9 Chronic sinusitis, unspecified (principal); J40 Bronchitis, not specified as acute or chronic; I10 Essential (primary) hypertension; E11.9 Type 2 diabetes mellitus without complications; E78.5 Hyperlipidemia, unspecified; Z87.891 Personal history of nicotine dependence
CPT/HCPCS: 99213; G0463

== ENCOUNTER 2024-09-08 09:38 | Emergency (ER) | payer BC, OTHER, SELFPAY ==
[2024-09-08 09:47] VITALS: BP 122/67; PULSE 95; RESP 16; TEMP 36.5; O2SAT 98
--- NOTE | 2024-09-08 09:58 | ED_ITS ---
HPI - URI/Sore Throat General Chief Complaint: Upper Respiratory Infection Stated Complaint: cough,MALDONADO,right ear issue bronchitis 6wks ago Time Seen by Provider: 09/08/24 09:59 Source: patient, RN notes reviewed and old records reviewed Mode of arrival: ambulatory Limitations: no limitations History of Present Illness HPI Narrative: Patient presents with complaints of cough, headache, right ear pain. Symptoms have been present for 2 days. He has been taking DayQuil and NyQuil for his symptoms with minimal relief. He is not in any distress. Denies any injury or trauma. No other concerns or complaints today Related Data Home Medications ?Medication ?Instructions ?Recorded ?Confirmed ?Last Taken ?Type triamterene 37.5 1 tablet PO DAILY 03/20/24 03/20/24 Unknown History mg-hydrochlorothiazide 25 mg tablet vilazodone 10 mg tablet 10 mg PO DAILY 03/20/24 03/20/24 Unknown History buspirone 10 mg tablet mg 04/23/24 Unknown History montelukast 10 mg tablet mg 04/23/24 Unknown History nebivolol 20 mg tablet mg 07/26/24 Unknown History semaglutide 7 mg tablet (Rybelsus) mg PO 07/26/24 Unknown History cyclobenzaprine 10 mg tablet mg 09/08/24 Unknown History diclofenac sodium 50 mg mg PO 09/08/24 Unknown History tablet,delayed release metformin 500 mg tablet,extended mg PO 09/08/24 Unknown History release 24 hr tamsulosin 0.4 mg capsule mg PO 09/08/24 Unknown History Allergies Allergy/AdvReac Type Severity Reaction Status Date / Time cephalexin Allergy Mild Rash Verified 09/08/24 10:08 ketorolac Allergy Mild Hives Verified 09/08/24 10:08 bacitracin Allergy Unknown Unknown Verified 09/08/24 10:08 Review of Systems Review of Systems: All systems reviewed & are unremarkable except as noted in HPI and below Constitutional: Constitutional: Reports as per HPI, Reports no additional constitutional complaints and Reports headache(s) ENT: Reports system reviewed and no additional complaints, except as documented, Reports otalgia, Reports headache(s), Reports nasal congestion, Reports nasal discharge and Reports sinus pain Cardiovascular: Cardiovascular: Reports no additional cardiovascular complaints Respiratory: Respiratory: Reports no additional respiratory complaints and Reports cough Gastrointestinal: Gastrointestinal: Reports no additional gastrointestinal complaints PMFSH Past Medical History Medical History (Updated 09/08/24 @ 10:27 by Mel Tuttle APRN) Hypertension Knee pain, chronic Type 2 diabetes mellitus Hyperlipidemia Chronic sinusitis Surgical History Surgical History H/O wrist surgery Hx of appendectomy H/O sinus surgery Family History Family History Mother Hypertension Family history of malignant neoplasm Family history of diabetes mellitus in first degree relative Family history of heart disease in male family member before age 55 Diabetes mellitus Sibling Hypertension Family history of malignant neoplasm Diabetes mellitus Social History Social History Smoking status: Former smoker Alcohol intake: current Gender identity (if verbalized by the patient): Male Comments At the time of my signature, I reviewed and agree with the nursing past medi declan, surgical, social, and family history. There is no relevant family history pertinent to the patient complaint. Exam Const: General: cooperative, no acute distress, alert and awake Orientation/consciousness: oriented to person, oriented to place and oriented to time HENMT: Head: normal to inspection Ears: TM's normal bilaterally Mouth: Yes moist mucous membranes Throat: posterior oropharynx normal Resp: Effort & Inspection: normal respiratory effort and able to speak in c omplete sentences Auscultation: clear to auscultation bilaterally, no crackles, no rales, no rhonchi and no wheezes Cardio: Palpation: normal PMI Rate: regular rate Rhythm: regular rhythm Heart sounds: S1 normal heart sound present and S2 normal heart sound present Neuro: General: oriented to person, oriented to place and oriented to time Cranial nerves: Yes CN's II-XII intact bilaterally Psych: Appearance: grossly normal Thought process: Normal thought process present Insight: Good insight present (Psych) Judgement: Good judgement present (Psych) Course Course Level of Care: Express Care Visit Vital Signs Vital signs: Vital Signs Temperature 97.7 F 09/08/24 09:47 Pulse Rate 95 09/08/24 09:47 Respiratory Rate 16 09/08/24 09:47 Blood Pressure 122/67 09/08/24 09:47 Pulse Oximetry 98 09/08/24 09:47 Oxygen Delivery Room Air 09/08/24 09:47 Temperature 97.7 F 09/08/24 09:47 Pulse Rate 95 09/08/24 09:47 Respiratory Rate 16 09/08/24 09:47 Blood Pressure 122/67 09/08/24 09:47 Pulse Oximetry 98 09/08/24 09:47 Oxygen Delivery Room Air 09/08/24 09:47 Reviewed MDM - URI/Sore Throat MDM Narrative Medical decision making narrative: Negative COVID, negative flu. Symptoms likely viral in origin. Supportive care measures discussed Discharge instructions reviewed with patient, as well as provided in writing per nursing staff. The instructions also include specific and strict return/GO TO THE ER as well as f/u information. All questions have been answered, and the patient deny any further questions with discharge and discharge plan. Some parts of this dictation were generated by voice recognition software and may contain typographical and/or grammatical inaccuracies. Differential Diagnosis Differential diagnosis: Likely upper respiratory infection, otitis media, viral infection and influenza Medical Records Attestation: I reviewed the patient's medical records. Lab Data Attestation: I reviewed the patient's lab results. Discharge Plan Discharge Clinical Impression: Upper respiratory infection Qualifiers: URI type: unspecified viral URI Qualified Code(s): J06.9 - Acute upper respiratory infection, unspecified Patient Disposition: Home, Self-Care Condition: Stable Instructions: Antibiotic Form, Cold Symptoms (ED) Additional Instructions: Continue [id number] medications to treat your symptoms. Take prescription medicine per prescriber instructions. Follow with primary care provider. Emergency department for new or worse symptoms Patient Language: Amharic Prescriptions: New albuterol sulfate [Ventolin HFA] 90 mcg/actuation HFA aerosol inhaler 2 puff inhalation QID PRN (Reason: shortness of breath or wheezing) Qty: 8.5 0RF benzonatate 200 mg capsule 200 mg PO TID PRN (Reason: cough) Qty: 30 0RF No Action triamterene-hydrochlorothiazid 37.5-25 mg tablet 1 tablet PO DAILY vilazodone 10 mg tablet 10 mg PO DAILY buspirone 10 mg tablet montelukast 10 mg tablet cyclobenzaprine 10 mg tablet tamsulosin 0.4 mg capsule PO diclofenac sodium 50 mg tablet,delayed release (DR/EC) PO metformin 500 mg tablet extended release 24 hr PO nebivolol 20 mg tablet Rybelsus 7 mg tablet PO methylprednisolone [Medrol (Dusty)] 4 mg tablets,dose pack See Rx Instructions .ROUTE .COMPLEX Qty: 21 0RF Rx Instructions: orally per package directions Follow-up/Referrals: Ashu,GE Chase [Primary Care Provider] - 2 Weeks Stand Alone Forms: Work/School Release IP Time of Disposition: 10:28
[2024-09-08 13:36] LABS: EDCOVIDSCREEN Negative (Negative); EDINFLUASCREEN Negative (Negative); EDINFLUBSCREEN Negative (Negative)
== END 2024-09-08 10:30 | disposition home or self-care (01) ==
PROVIDERS: Emergency Provider Nurse Practitioner Family; PCP Physician Assistant
DX: J06.9 Acute upper respiratory infection, unspecified (principal); Z20.822 Contact with and (suspected) exposure to COVID-19; I10 Essential (primary) hypertension; E11.9 Type 2 diabetes mellitus without complications; E78.5 Hyperlipidemia, unspecified; Z87.891 Personal history of nicotine dependence
CPT/HCPCS: 87426; 87804; 99213; G0463

== ENCOUNTER 2024-09-24 14:30 | Outpatient (CLI) | payer BC, OTHER, SELFPAY ==
--- NOTE | ~2024-09-24 | US_ITS ---
EXAMINATION: US venous doppler LE RT DATE: 09/24/2024 15:08 INDICATION: Right lower limb pain and swelling. TECHNIQUE: Grayscale ultrasound images without and with compression and Doppler ultrasound images of the right lower extremity veins were obtained. COMPARISON: None. FINDINGS: The visualized portions of right common femoral vein, profunda (deep) femoral vein, femoral vein, pop liteal vein, peroneal veins, posterior tibial veins, and greater saphenous vein outflow are patent. IMPRESSION: 1. No deep venous thrombosis. Reviewed, dictated and finalized at location A. LLECTUAL PROPERTY COUNSEL
--- OUTSIDE RECORDS SUMMARY | 2024-09-24 16:13 | XMS_ITS | Clinical Summary ---
Author Organization [facility] D Address [address] [place] [id number] Care Team Providers Care Landing Worker Name Role Phone Jose Manuel Chavarria MD Unavailable [phone] Rena Wakefield Primary Care Provider [phone] Allergies Active Allergy Reactions Criticality Noted Date Comments Bacitracin Rash,Hives High 08/24/2004 Cephalexin Rash,Hives High 08/05/2004 Reaction: RASH, Codeine Nausea & Vomiting Low 11/12/2000 Dimethicone Urticaria High 07/26/2015 Other Unknown 10/27/2005 Testosterone Other (See comments) Low 11/10/2004 Ketorolac Rash Medium 01/10/2022 Medications aspirin (ASPIR-81) 81 mg tablet take 1 tablet by oral route every day 0 0 02/13/20 13 Active meclizine (ANTIVERT) 25 mg tablet Take 1 tablet (25 mg total) by mouth 3 (three) times a day as needed (vertigo) 01/04/20 21 Active traZODone (DESYREL) 100 mg tablet trazodone 100 mg tablet TAKE 1 TABLET BY MOUTH EVERY NIGHT AT BEDTIME NEEDED FOR INSOMNIA Active nortriptyline (PAMELOR) 50 mg capsule Take 1 capsule (50 mg total) by mouth daily after lunch 01/13/20 23 Active dicyclomine (BENTYL) 10 mg capsuleIndication s:Irritable bowel syndrome without diarrhea Take 1 capsule (10 mg total) by mouth 2 (two) times a day 180 capsule 04/20/20 23 Active atorvastatin (LIPITOR) 40 mg tablet Take 0.5 tablets (20 mg total) by mouth nightly 45 tablet 1 06/12/20 23 Active Jardiance 25 mg tabletIndications :Type 2 diabetes mellitus with hyperlipidemia (HCC) TAKE 1 TABLET(25 MG) BY MOUTH DAILY 90 tablet 1 08/20/19 24 Active omega 1-bhh-kge-fish oil (Fish OiL) 1,000 mg (120 mg-180 mg) capsule Take 1 capsule (1,000 mg total) by mouth 2 (two) times a day 06/16/20 23 Active triamcinolone (KENALOG) 0.5 % cream 11/05/19 24 Active ondansetron ODT (ZOFRAN-ODT) 4 mg disintegrating tablet Take 1 tablet (4 mg total) by mouth every 8 (eight) hours as needed for vomiting or nausea 20 tablet 12/03/[address] (VOLTAREN) 50 mg EC tabletIndications :Chronic low back pain, unspecified back pain laterality, unspecified whether sciatica present Take 1 tablet (50 mg total) by mouth 2 (two) times a day 180 tablet 3 02/28/20 24 Active LORazepam (ATIVAN) 1 mg tabletIndications :Trouble in sleeping,Anxiety TAKE 1 TABLET(1 MG) BY MOUTH EVERY NIGHT NEEDED FOR ANXIETY OR SLEEP 30 tablet 04/17/20 24 Active lisinopriL (PRINIVIL,ZESTRIL ) 20 mg tabletIndications :Primary hypertension Take 1 tablet (20 mg total) by mouth daily 90 tablet 1 04/21/20 24 Active cyclobenzaprine (FLEXERIL) 10 mg tabletIndications :Back muscle spasm,History of back surgery TAKE 1 TABLET(10 MG) BY MOUTH THREE TIMES DAILY NEEDED FOR MUSCLE SPASMS 30 tablet 2 05/02/20 24 Active testosterone cypionate (DEPO-TESTOTERONE ) 200 mg/mL injection Inject 7.5 mg into the muscle as instructed once a week Active lancets miscIndications:T ype 2 diabetes mellitus with hyperlipidemia (HCC) 200 each by other route as directed Use to check BS once daily for diabetes 200 each 3 06/25/20 24 Active blood glucose diagnostic stripIndications: Type 2 diabetes mellitus with hyperlipidemia (HCC) 1 each by other route as directed Use to check blood sugar once daily 200 strip 3 06/25/20 24 Active nebivoloL (BYSTOLIC) 20 mg tabletIndications :Primary hypertension TAKE 1 TABLET(20 MG) BY MOUTH DAILY 30 tablet 2 07/23/19 25 Active metFORMIN XR (GLUCOPHAGE XR) 500 mg 24 hr tabletIndications :Type 2 diabetes mellitus with other circulatory complication, without long-term current use of insulin (HCC) TAKE 1 TABLET(500 MG) BY MOUTH DAILY WITH BREAKFAST 90 tablet 1 08/15/19 25 Active triamterene-hydro CHLOROthiazide 37.5-25 mg per tabletIndications :Vertigo TAKE 1 TABLET BY MOUTH DAILY 90 tablet 1 08/22/19 25 Active semaglutide (Rybelsus) 7 mg tablet TAKE 1 TABLET(7 MG) BY MOUTH TOOL CRIB CLERK BEFORE BREAKFAST 90 tablet 1 08/25/19 25 Active albuterol HFA (PROVENTIL HFA,VENTOLIN HFA,PROAIR HFA) 90 mcg/actuation inhaler INHALE 2 PUFFS BY MOUTH FOUR TIMES DAILY NEEDED FOR SHORTNESS OF BREATH OR WHEEZING 09/08/19 25 Active benzonatate (TESSALON) 200 mg capsule TAKE 1 CAPSULE BY MOUTH THREE TIMES DAILY NEEDED FOR COUGH 09/08/19 25 Active montelukast (SINGULAIR) 10 mg tablet Take 1 tablet (10 mg total) by mouth daily 08/22/19 25 Active tamsulosin (FLOMAX) 0.4 mg extended release capsule Take 1 capsule (0.4 mg total) by mouth daily 09/03/19 25 Active busPIRone (BUSPAR) 10 mg tabletIndications :JAYE (generalized anxiety disorder) TAKE 1 TABLET(10 MG) BY MOUTH THREE TIMES DAILY 90 tablet 3 09/17/19 25 Active busPIRone (BUSPAR) 10 mg tabletIndications :Generalized Anxiety Disorder Take 1 tablet (10 mg total) by mouth 3 (three) times a day 90 tablet 3 03/26/20 24 2024 Discontinued predniSONE (DELTASONE) 20 mg tabletIndications :Right otitis media with effusion Take 2 tablets (40 mg) by mouth daily for 3 days 6 tablet 09/10/19 25 2024 amoxicillin-clavu lanate (AUGMENTIN) 875-125 mg per tabletIndications :Right otitis media with effusion Take 1 tablet by mouth 2 (two) times a day for 10 days 20 tablet 09/10/19 25 2024 Active Problems Problem Noted Date Diagnosed Date Meniere's disease 03/27/2024 Assessment & Plan (03/27/2024 12:22 PM CDT): Chronic, currently worsening Saw ENT who recommended vestibular therapy/consultation with neurology Continue meclizine and occasional Ativan, triamterene hydrochlorothiazide Watch for hyponatremia Annual physical exam 03/26/2024 Assessment & Plan (03/27/2024 12:17 PM CDT): Exercise 5 days a week, 30 mins per day recommended. Eat a heart healthy diet consisting of good, healthy protein (eggs, nuts, peanut butter, chicken, fish, turkey, less pork/beef), lots of vegetables, less carbohydrates and less sugar. Annual physical recommended. C-scope 03/08/23 alliperti 2 rectal polyps, repeat 5 years PSA- nml 03/15 Never smoked JAYE (generalized anxiety disorder) 03/26/2024 Assessment & Plan (03/27/2024 12:17 PM CDT): Chronic but controlled with Viibryd and BuSpar Spinal stenosis of lumbosacral region 2023 Assessment & Plan (2023 9:35 AM LABOR REPRESENTATIVE): Chronic problem, will check MRI to see if it is progressing. Referred back to Neurosurgery The patient was anxious to start some weighted squats and I recommended that he hold off until we get the imaging Lumbar radiculopathy, acute 2023 Assessment & Plan (2023 9:36 AM LABOR REPRESENTATIVE): Acute on chronic exacerbation Will check x-rays followed by MRI to evaluate the L3-L4 level above the fusion Referred back to Neurosurgery Okay to do body weight exercise as long as the pain is not worsening, no bending, heavy lifting pulling and pushing Walking is recommended Continue with diclofenac and Flexeril, try to the Flexeril more regularly. Patient was recently on steroids without improvement in symptoms Right hip pain 2023 Assessment & Plan (2023 9:36 AM LABOR REPRESENTATIVE): May have an element of greater trochanteric bursitis I did discuss a possible injection which I would be happy to do to see if it helps but he declined today. He prefer to have imaging completed 1st History of spinal fusion 2023 Assessment & Plan (2023 9:37 AM LABOR REPRESENTATIVE): I would like an MRI before deciding the next step. I would also like the opinion of his neurosurgeon. I have ordered this imaging and he will let me know when it is scheduled Fatty liver 08/09/2023 Assessment & Plan (2023 9:32 AM LABOR REPRESENTATIVE): Check liver function on lab work Dislocation of jaw 03/22/2023 Overview (03/22/2023): Soft diet recommended. May add an extra diclofenac for a few days Right carpal tunnel syndrome 03/12/2023 Sensorineural hearing loss, unilateral, right ear, with unrestricted hearing on the contralateral side 08/08/2022 Assessment & Plan (03/27/2024 12:20 PM CDT): Hearing aid Testicular hypofunction 02/28/2022 Assessment & Plan (03/27/2024 12:19 PM CDT): On testosterone replacement therapy by outside physician Primary hypertension 02/28/2022 Assessment & Plan (06/25/2024 4:17 PM LABOR REPRESENTATIVE): Chronic condition, currently uncontrolled I recommended increasing his Bystolic which will also help with his headaches Keep a blood pressure log and update me in 1-2 weeks Low-salt diet Get a copy of blood work for me. I am concerned that maybe testosterone supplementation is causing his blood pressure to be higher May need to see Cardiology Assessment & Plan (04/04/2023 2:33 PM CDT): Blood pressure is very well controlled, and he has had recent orthostatic lightheadedness. I recommended decrease in lisinopril to 20 mg daily, and possible discontinuation of nortriptyline if approved by his PCP. Otherwise, I made no change in his excellent medical regimen today. I asked him to follow up with me on an as-needed basis only. He will follow up with his PCP regularly. I again advised him to continue to diet and exercise regularly. Chronic low back pain 02/28/2022 Assessment & Plan (03/27/2024 12:20 PM CDT): Stable, chronic, occasional Flexeril use, diclofenac on occasion also Chronic sinusitis 02/28/2022 Overview (08/08/2022): Pt to refill his flonase Pt to refill his flonase Pt to refill his flonase Assessment & Plan (03/27/2024 12:20 PM CDT): Chronic, recent acute infection improving with Augmentin, recent steroid use. 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 02/28/2022 Secondary localized osteoarthrosis of shoulder r egion 02/28/2022 Overview (08/08/2022): Left AC joint osteoarthritis Left AC joint osteoarthritis Left AC joint osteoarthritis Type 2 diabetes mellitus with hyperlipidemia 05/2021 Assessment & Plan (06/25/2024 4:16 PM LABOR REPRESENTATIVE): Chronic condition, controlled Continue with Jardiance, metformin I recommended restarting rybelsus when he feels better and when he knows he will overindulge holding the medication that day and taking an extra metformin instead Alternatively we could add glipizide but there is a risk of hypoglycemia with this medication Check A1c Assessment & Plan (03/26/2024 4:11 PM CDT): LDL was at goal on last set of labs but he is due for more lab. He is back on testosterone so this may elevate his cholesterol and triglycerides. His A1c is controlled but the patient wishes to try a G LP 1 again. In the past he did have a really bad bout of possible gastroenteritis after a [place] trip which was likely worsened with Ozempic. I would like to try oral Ozempic to see if he has better and occasionally he can miss a day if needed. If you develops abdominal side effects however we will discontinue it and try Trulicity as this is typically better tolerated. He denies having pancreatitis in the past. Will start on a low dose and he will let me know in 1 month how it is going and if he is experiencing side effects. I will titrate him up monthly. I will follow-up with him in 3 months For now will continue metformin and Jardiance and will consider decreasing or discontinuing Jardiance in the future Assessment & Plan (2023 9:32 AM LABOR REPRESENTATIVE): Time to check A1c and urine microalbumin, ordered Continue Jardiance and metformin Sleep apnea 08/02/2020 Assessment & Plan (03/27/2024 12:21 PM CDT): Status post surgery Erectile dysfunction due to diseases classified elsewhere 02/06/2020 Overview (10/24/2022): Added automatically from request for surgery [id number] Added automatically from request for surgery [id number] Added automatically from request for surgery [id number] Assessment & Plan (03/27/2024 12:18 PM CDT): Currently undergoing testosterone therapy per outside physician Hypercholesteremia 04/25/2018 Overview (10/24/2022): Last Assessment & Plan: Lipids are mildly elevated. Continue diet and exercise. Consider statin therapy. Last Assessment & Plan: Lipids are mildly elevated. Continue diet and exercise. Consider statin therapy. Assessment & Plan (04/04/2023 2:34 PM CDT): Lipids are well controlled. Continue high-intensity statin therapy. Continue diet and exercise. Assessment & Plan (04/25/2018 10:00 AM CDT): Lipids are mildly elevated. Continue diet and exercise. Consider statin therapy. Irritable bowel syndrome without diarrhea 2016 Assessment & Plan (03/27/2024 12:18 PM CDT): Chronic controlled on Bentyl and nortriptyline Obesity, diabetes, and hypertension syndrome 03/2014 Overview (10/24/2022): Hypertension Hypertension Last Assessment & Plan: Blood pressure is well controlled. As above, I recommended he stop hydrochlorothiazide in view of his lightheadedness. I asked him to monitor his blood pressure at home, and to report if elevated off hydrochlorothiazide. Hypertension Last Assessment & Plan: Blood pressure is well controlled. As above, I recommended he stop hydrochlorothiazide in view of his lightheadedness. I asked him to monitor his blood pressure at home, and to report if elevated off hydrochlorothiazide. Hypertension Last Assessment & Plan: Blood pressure is well controlled. As above, I recommended he stop hydrochlorothiazide in view of his lightheadedness. I asked him to monitor his blood pressure at home, and to report if elevated off hydrochlorothiazide. Assessment & Plan (03/26/2024 4:09 PM CDT): Chronic condition, Currently uncontrolled, goal blood pressure is less than 130 / 85 I recommended keeping a blood pressure log at home for another week He recently was on steroids which would elevate his blood pressure and recently restarted his testosterone injections He has also been taking Loretta D until today I would like time for his blood pressure to normalize before increasing his lisinopril However if it remains elevated above goal will increase his lisinopril to 20 mg daily He verbalized understanding Assessment & Plan (04/25/2018 9:59 AM CDT): Blood pressure is well controlled. As above, I recommended he stop hydrochlorothiazide in view of his lightheadedness. I asked him to monitor his blood pressure at home, and to report if elevated off hydrochlorothiazide. Venous insufficiency (chronic) (peripheral) 09/2011 Resolved Problems Problem Noted Date Diagnosed Date Resolved Date Right hand weakness 03/12/2023 03/27/20 24 Overview (03/12/2023): Worsening chronic problem. Follow-up with hand surgery. Carpal tunnel testing was negative Right hand pain 03/12/2023 03/27/2024 Vertigo 12/05/2022 03/27/2024 Abnormal sexual function 02/28/2022 Overview (08/08/2022): [place] I: 300.04 Dysthymic Disorder [place] II: No Diagnosis [place] III: HTN [place] IV: chronic marital discord [place] V; GAF: 68 [place] I: 300.04 Dysthymic Disorder [place] II: No Diagnosis [place] III: HTN [place] IV: chronic marital discord [place] V; GAF: 68 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 Precordial pain 04/25/2018 04/03/2023 Overview (10/24/2022): Last Assessment & Plan: The patient has multiple cardiac risk factors and has had episodes of lightheadedness as well as some nonexertional chest tightness. I recommended an echocardiogram to evaluate left ventricular and valvular function, and a stress echo to rule out any significant ischemia. Further recommendations will await these results. I suggested he stop hydrochlorothiazide and monitor his blood pressure at home off diuretic therapy. Otherwise, I made no change in his excellent medical regimen today. I advised him to diet and exercise regularly. Last Assessment & Plan: The patient has multiple cardiac risk factors and has had episodes of lightheadedness as well as some nonexertional chest tightness. I recommended an echocardiogram to evaluate left ventricular and valvular function, and a stress echo to rule out any significant ischemia. Further recommendations will await these results. I suggested he stop hydrochlorothiazide and monitor his blood pressure at home off diuretic therapy. Otherwise, I made no change in his excellent medical regimen today. I advised him to diet and exercise regularly. Assessment & Plan (04/25/2018 9:59 AM CDT): The patient has multiple cardiac risk factors and has had episodes of lightheadedness as well as some nonexertional chest tightness. I recommended an echocardiogram to evaluate left ventricular and valvular function, and a stress echo to rule out any significant ischemia. Further recommendations will await these results. I suggested he stop hydrochlorothiazide and monitor his blood pressure at home off diuretic therapy. Otherwise, I made no change in his excellent medical regimen today. I advised him to diet and exercise regularly. Encounters Date Type Department Care Team Description 09/10/2024 12:45 PM LABOR REPRESENTATIVE Office Visit [facility] [address] [phone] Rena Wakefield PA Right otitis media with effusion (Primary Dx); Acute bronchitis, unspecified organism; Type 2 diabetes mellitus with hyperlipidemia (HCC); Primary hypertension 09/10/2024 Nurse Triage [facility] [address] [phone] Rena Wakefield PA 08/05/[address] [phone] Maris Deleon PA 07/28/[address] [phone] Rena Wakefield PA 07/25/2024 Orders Only [address] [phone] Maris Deleon PA 06/27/[address] [phone] Rena Wakefield PA Prior Auth Request for Accu-Check Guide Test Strips from Last 3 Months Immunizations Immunization Administration Dates Next Due Hep A, Adult 06/04/1997 Influenza, Quadrivalent, Michelle l Culture-based MDCK, Preservative Free, Antibiotic Free, Intramuscular 05/26/2022 Influenza, Quadrivalent, Spl it, Intramuscular 06/12/2005,08/04/2004 Influenza, Quadrivalent, Spl it, Preservative Free, Intramuscular 05/25/2023,04/01/2021,05/04/2020,09/04 Influenza, Split 06/12/2005,08/04/2004 Influenza, Trivalent, Cell Culture-based MDCK, Preservative Free, Antibiotic Free, Intramuscular 05/29/2024,05/26/2022 Influenza, Unspecified 03/23/2024(Deferr ed: Patient decision),07/23/2022,07/14/2014,2013 Influenza, Whole 06/05/2003, 2,06/17/2001,07/31,05/24/1999,05/23/1999,06/10/1998 ,06/04/1997 Measles / Rubella 10/04/1983 Moderna SARS-CoV-2 Monovalen t Vaccination (12+ YRS) 09/28/2020,08/31/2020 Moderna Sars-cov-2 Bivalent Vaccine 50 Mcg/0.5 mL (12+ YRS)-Blue/Sprague 06/09/2022 Moderna Sars-cov-2 Monovalen t Booster Vaccination .25 Ml dose (12+ YRS) 11/30/2021,06/13/2021 OPV 12/10/1984 Pfizer SARS-CoV-2 Monovalent Vaccination (12+ Yrs) PURPLE 09/28/2020,08/31/2020 Pneumococcal Conjugate Pcv20 10/31/2022 Pneumococcal Polysaccharide PPV23 12/22/2019, Sars-CoV-2, Unspecified 09/28/2020,08/31/2020 Td, adsorbed 09/12/2003,05/15/1995 Tdap 02/26/2022,11/20/2014,07/23/2014 ZOSTER Recombinant 02/27/2023,10/24/2022 Surgical History Surgery Date Site/Laterality Comments SINUS SURGERY Sinus Surgery APPENDECTOMY Appendectomy WRIST SURGERY Wrist Surgery OTHER SURGICAL HISTORY Nerve Repair on Wrist SHOULDER SURGERY Shoulder Surgery OTHER SURGICAL HISTORY 07/23/2014 - 07/22/2015 PPP SPINE SURGERY VASECTOMY Medical History Medical History Date Comments Hypertension Hypertension Sleep apnea Sleep apnea Erectile dysfunction Kidney stone Back pain Irritable bowel syndrome Sinus drainage Type 2 diabetes mellitus (HCC) Arthritis Eczema Osteoarthritis Spinal stenosis Family History Medical History Relation Name Comments Diabetes Brother 1 Heladio Family history of diabetes mellitus - (Added by TW Conv) Heart attack Brother 1 Bill Heart disease Brother 1 Bill Heart attack Brother 2 Akhil Heart disease Brother 2 Akhil Hypertension Brother 2 Akhil Family history of hypertension - (Added by TW Conv) Heart attack Brother 3 N/A Family history of myocardial infarction - (Added by TW Conv) Cancer Mother Cassandra Diabetes Mother Cassandra Family history of diabetes mellitus - (Added by TW Conv) Heart disease Mother Cassandra Family history of cardiac disorder - (Added by TW Conv) Hypertension Mother Cassandra Family history of hypertension - (Added by TW Conv) Stroke Mother Cassandra Family history of cerebrovascular accident (CVA) - (Added by TW Conv) Cancer Other 1 Family history of Cancer; Diabetes Other 2 Family history of Diabetes mellitus; Heart disease Other 3 Family history of Heart disease; Diabetes Sister 1 Emely Family history of diabetes mellitus - (Added by TW Conv) Hypertension Sister 2 Rebecca Family history of hypertension - (Added by TW Conv) Relation Name Status Comments Brother 1 Bill Brother 2 Akhil Brother 3 N/A Mother Cassandra Other 1 Other 2 Other 3 Sister 1 Emely Sister 2 Rebecca Social History Tobacco Use Types Packs/Day Years Used Date Smoking Tobacco: Never Smokeless Tobacco: Never Tobacco Cessation:Counseling Given: Not Answered Alcohol Use Standard Drinks/Week Comments Yes 0 (1 standard drink = 0.6 oz pur e alcohol) occassional AUDIT-C Answer Date Recorded Q1: How often do you have a drink containing alc ohol? 2-4 times a month 09/10/2024 Q2: How many drinks containi ng alcohol do you have on a typical day when you are drinking? 3 or 4 09/10/2024 Q3: How often do you have si x or more drinks on one occasion? Never 09/10/2024 PHQ-2 Answer Date Recorded PHQ-2 Total Score (If total score is 3 or more points, staff should administer the PHQ-9) 0 09/10/2024 Sex and Gender Information Value Date Recorded Sex Assigned at Not on file Legal Sex Male 12:20 AM LABOR REPRESENTATIVE Gender Identity Male 04/30/2020 1:34 PM CDT Sexual Orientation Straight 04/30/2020 1: 34 PM CDT Obstetrics History Last Filed Vital Signs Vital Sign Reading Time Taken Comments Blood Pressure 126/86 09/10/2024 12:52 PM LABOR REPRESENTATIVE Pulse 102 09/10/2024 12:52 PM LABOR REPRESENTATIVE Temperature 36.1 C (97 F) 09/10/2024 12:52 PM LABOR REPRESENTATIVE Respiratory Rate 18 09/10/2024 12:5 2 PM LABOR REPRESENTATIVE Oxygen Saturation 98% 09/10/2024 12: 52 PM LABOR REPRESENTATIVE Inhaled Oxygen Concentration - - Weight 100.9 kg (222 lb 6.4 oz) 025 12:52 PM LABOR REPRESENTATIVE Height 180.3 cm (5' 11 ) 09/10/2024 12: 52 PM LABOR REPRESENTATIVE Body Mass Index 31.02 09/10/2024 12:52 PM LABOR REPRESENTATIVE Plan of Treatment Health Maintenance Due Date Last Done Comments Hepatitis C Screening 1965 Hepatitis B Screening 1983 Prostate Cancer Screening-PSA 09/05/2024 09/05/2022 Hemoglobin A1C 01/23/2025 07/26/2024, 0811/2023, 09/20/2023, Additional history exists Regular Well Visit/Exam 18-64 03/26/2025 03/26/2024 Albumin Creatinine Ratio, Urine 04/19/2025 04/19/2024, 09/20/2023, 08/25/2022 Lipid Panel 04/19/2025 04/19/2024, 02/20, 02/10/2022, Additional history exists eGFR 04/19/2025 04/19/2024, 02/22, 02/22/2024, Additional history exists Foot Exam 06/25/2025 06/25/2024, 10/24/2022 Dilated Eye Exam 08/04/2025 08/04/2024, , 08/24/2022 Depression Screening 09/10/2025 09/10/2024, 06/25/2024, 03/26/2024, Additional history exists Colon Cancer Screening-Colonoscopy 03/02/2028 03/02/2023 DTaP/Tdap/Td Vaccine (4 - Td or Tdap) 02/27/2032 02/26/2022, 11/20/2014, 07/23/2014, Additional history exists Pneumococcal vaccine <65 Completed 023, 12/22/2019, 09/04/2019 Zoster Vaccine Completed 02/27/2023, 10/24/2022 Colon Cancer Screening-CT Colonography Discontinued 03/02/2023 Colon Cancer Screening-DNA Stool Discontinued 03/02/20 23 Colon Cancer Screening-FIT Discontinued 03/02/2023 Colon Cancer Screening-Sigmoidoscopy Discontinued 03/02/2023 Influenza Vaccine Completed 05/29/2024, , 07/23/2022, Additional history exists Covid-19 Vaccine Completed 06/02/2024, , 11/30/2021, Additional history exists Medical Devices Implanted Type Area Engineer Remote Control Diesel Device Identifier Shelf Expiration Date Model / Serial / Lot Urban Mapping [id number] [facility] 700 Kit Accessory Penile Prosthesis - [id number] Implanted:Qty: 1 on 05/03/2020 by Jose Manuel Chavarria MD at [facility] N/A: Penis Revel Touch Anamaria 03/03/2025 [id number] / / [id number] [employer] [id number] Ams 700cx Ultrex Inflatable Preconnect Tactile Pump Cylinder - [id number] Implanted:Qty: 1 on 05/03/2020 by Jose Manuel Chavarria MD at [facility] N/A: Penis [employer] Anamaria 08/27/2023 [id number] / / [id number] [employer] [id number] Ams 700 Ms Pump Preconnect Inflatable [place] Prosthesis 65ml - [id number] Implanted:Qty: 1 on 05/03/2020 by Jose Manuel Chavarria MD at [facility] N/A: Penis [employer] Anamaria 02/25/2022 [id number] / / [id number] Prosthesis Penile Ams 700 Cxr Tactile Pump 18cm Inflatable - [id number] Implanted:Qty: 1 on 05/03/2020 by Jose Manuel Chavarria MD at [facility] N/A: Penis [employer] Anamaria 04/10/2021 [id number] / / [id number] Description:Non-clinical carlos ting has demonstrated the penile prostheses AMS 700 / AMS Ambicor product line is MR Conditional. The device can be scanned safely under the following conditions: 1.5T: Max spatial Gradient Field: 450 G/cm 2Max whole body averaged CHAMP: 1.5 W/kg 3T: Max spatial Gradient Field: 720 G/cm Max whole body averaged CHAMP: 2.9 W/kg Procedures Procedure Name Priority Date/Time Associated Diagnosis Comments HM DIABETES EYE EXAM Routine 08/04/2024 HEMOGLOBIN A1C Routine 07/26/2024 8:24 AM LABOR REPRESENTATIVE Type 2 diabetes mellitus with hyperlipidemia (HCC) LIPID PANEL Routine 04/19/2024 7:38 AM CDT Type 2 diabetes mellitus with hyperlipidemia (HCC) ALBUMIN CREATININE RATIO, URINE Routine 04/19/2024 7:38 AM CDT BASIC METABOLIC PANEL Routine 04/19/2024 7:36 AM CDT Hyponatremia Meniere's disease, unspecified laterality COLONOSCOPY Routine 03/02/2023 PSA SCREEN Routine 09/05/2022 6:27 AM LABOR REPRESENTATIVE Screening for prostate cancer from Last 3 Months or Most Recently Relevant to Health Maintenance Results * DIABETES EYE EXAM (08/04/2024) Pathologist [facility] SCRIBED DIABETIC DILATED EYE EXAM Normal Historical Provider MD HEALTH MAINTENANCE Final Result * (ABNORMAL) Hemoglobin A1c (07/26/2024 8:24 AM LABOR REPRESENTATIVE) [facility] Hgb A1C 7.0(H) <5.7 % of total Hgb [facility] Comment: For someone without known diabetes, a hemoglobin A1c value of 6.5% or greater indicates that they may have diabetes and this should be confirmed with a follow-up test. For someone with known diabetes, a value <7% indicates that their diabetes is well controlled and a value greater than or equal to 7% indicates suboptimal control. A1c targets should be individualized based on duration of diabetes, age, comorbid conditions, and other considerations. Currently, no consensus exists regarding use of hemoglobin A1c for diagnosis of diabetes for children. Blood 07/26/2024 8:24 AM LABOR REPRESENTATIVE 07/26/2024 8:25 AM LABOR REPRESENTATIVE Rena CAROLINA LAB BLOOD ORDERABLES Final Resul t [facility] [address] [place] [address] * Albumin Creatinine Ratio, Urine (04/19/2024 7:38 AM CDT) [facility] Creatinine, ur 164 20 - 320 mg/dL [facility] Microalbumin, ur 1.1 See Note: mg/dL [facility] Comment: Reference Range: Reference Range Not established Microalbumin/creat ratio 7 <30 mg/g creat [facility] Comment: The ADA defines abnormalities in albumin excretion as follows: Albuminuria Category Result (mg/g creatinine) Normal to Mildly increased <30 Moderately increased 30-299 Severely increased > OR = 300 The ADA recommends that at least two of three specimens collected within a 3-6 month period be abnormal before considering a patient to be within a diagnostic category. 04/19/2024 7:38 AM CDT 04/19/2024 7:39 AM CDT Narrative [facility] - 04/20/2024 8:23 AM CDT FASTING:YES FASTING: YES Rena CAROLINA LAB URINE ORDERABLES Final Resul t [facility] [address] [address] * Lipid panel (04/19/2024 7:38 AM CDT) Cholesterol 114 <200 mg/dL [facility] HDL 42 > OR = 40 mg/dL [facility] Triglycerides 119 <150 mg/dL [facility] LDL 51 mg/dL (calc) [facility] Comment: Reference range: <100 Desirable range <100 mg/dL for primary prevention; <70 mg/dL for patients with CHD or diabetic patients with > or = 2 CHD risk factors. LDL-C is now calculated using the Gerry-Velasco calculation, which is a validated novel method providing better accuracy than the Friedewald equation in the estimation of LDL-C. Gerry SS et al. CANDELARIA. 2013;310(19): 8758-0209 (http://education.[employer].ARC Medical Devices/faq/VUN778) Chol/HDL ratio 2.7 <5.0 (calc) [facility] Non-HDL, (LDL+VLDL) 72 <130 mg/dL (calc) [facility] Comment: For patients with diabetes plus 1 major ASCVD risk factor, treating to a non-HDL-C goal of <100 mg/dL (LDL-C of <70 mg/dL) is considered a therapeutic option. Blood 04/19/2024 7:38 AM CDT 04/19/2024 7:39 AM CDT Narrative [facility] - 04/20/2024 8:23 AM CDT FASTING:YES FASTING: YES Rena CAROLINA LAB BLOOD ORDERABLES Final Resul t [facility] [address] [address] * (ABNORMAL) Basic metabolic panel (04/19/2024 7:36 AM CDT) Glucose 138(H) 65 - 99 mg/dL [facility] Comment: Fasting reference interval For someone without known diabetes, a glucose value >125 mg/dL indicates that they may have diabetes and this should be confirmed with a follow-up test. BUN 19 7 - 25 mg/dL [facility] Creatinine 1.10 0.70 - 1.30 mg/dL [facility] eGFR 78 > OR = 60 mL/min/1.7 3m2 [facility] BUN/creat ratio SEE NOTE: 6 - 22 (calc) [facility] Comment: Not Reported: BUN and Creatinine are within reference range. Sodium 138 135 - 146 mmol/L [facility] Potassium, pl 4.1 3.5 - 5.3 mmol/L [facility] Chloride 98 98 - 110 mmol/L [facility] CO2 32 20 - 32 mmol/L [facility] Calcium 9.7 8.6 - 10.3 mg/dL [facility] Blood 04/19/2024 7:36 AM CDT 04/19/2024 7:37 AM CDT Narrative [facility] - 04/20/2024 8:10 AM CDT FASTING:YES FASTING: YES Rena CAROLINA LAB BLOOD ORDERABLES Final Resul t [facility] [address] [address] * Colonoscopy (03/02/2023) Anatomical Region Laterality Modality Other us Historical Provider MD ENDOSCOPY PROCEDURES Saige l Result * PSA screen (09/05/2022 6:27 AM LABOR REPRESENTATIVE) PSA 0.41 < OR = 4.00 ng/mL [facility] Comment: The total PSA value from this assay system is standardized against the WHO standard. The test result will be approximately 20% lower when compared to the equimolar-standardized total PSA (Sheila Mariella). Comparison of serial PSA results should be interpreted with this fact in mind. This test was performed using the Siemens chemiluminescent method. Values obtained from different assay methods cannot be used interchangeably. PSA levels, regardless of value, should not be interpreted as absolute evidence of the presence or absence of disease. Your request to have a duplicate copy faxed has been acknowledged. Queued to: [id number] Blood 09/05/2022 6:27 AM LABOR REPRESENTATIVE 09/05/2022 6:30 AM LABOR REPRESENTATIVE Narrative [facility] - 09/06/2022 3:12 AM LABOR REPRESENTATIVE FASTING:YES FASTING: YES us Rena CAROLINA LAB BLOOD ORDERABLES Final Resul t [facility] [address] [place] [address] from Last 3 Months or Most Recently Relevant to Health Maintenance Insurance [facility] CLAIMS [facility] CLAIMS [employer] [place] [facility] CLAIMS BLUE ACCESS OOS Advance Directives For more information, please contact: [phone] * Full Code (Latest Code Status on File) Date Activated Date Inactivated Comments 05/03/2020 11:00 AM 05/04/2020 1:51 PM Care Teams Landing Worker Relationship Specialty Start Date End Date Rena Wakefield PA [address] [place] [address] PCP - General Critical Care Med 08/08/22 [place] [address] [address] [facility] [address] [place] [address] Consulting Physician Urology 05/04/20
--- OUTSIDE RECORDS SUMMARY | 2024-09-24 16:13 | XMS_ITS | Referral Summary ---
Author Organization [facility] D Address [address] [place] [address] Care Team Providers Care Scale Adjuster Name Role Phone Jose Manuel Chavarria MD Unavailable [phone] Rena Wakefield Primary Care Provider [phone] Encounters Date Type Department Care Team Description 09/10/2024 12:45 PM L D RN Office Visit [facility] Family Medicine [address] [place] [phone] Rnea Wakefield PA Right otitis media with effusion (Primary Dx); Acute bronchitis, unspecified organism; Type 2 diabetes mellitus with hyperlipidemia (HCC); Primary hypertension 09/10/2024 Nurse Triage [facility] Medicine [address] [place] [phone] Rena Wakefield PA 08/05/2024 Telephone [facility] [address] [place] [phone] Maris Deleon PA 07/28/2024 Telephone [facility] Medicine [address] [place] [phone] Rena Wakefield PA 07/25/2024 Orders Only [facility] [address] [place] [phone] Maris Deleon PA 06/27/2024 Telephone [facility] [address] [phone] Rena Wakefield PA Prior Auth Request for Accu-Check Guide Test Strips from Last 3 Months Allergies Active Allergy Reactions Criticality Noted Date [...] 90 tablet 1 08/20/19 24 Active omega 2-prn-daj-fish oil (Fish OiL) 1,000 mg (120 mg-180 [...] tablet TAKE 1 TABLET(7 MG) BY MOUTH SAP GRC SECURITY BEFORE BREAKFAST 90 tablet 1 08/25/19 25 [...] 2023 Assessment & Plan (2023 9:35 AM L D RN): Chronic problem, will check MRI to see if it is progressing. Referred back to Neurosurgery The patient was anxious to start some weighted squats and I recommended that he hold off until we get the imaging Lumbar radiculopathy, acute 2023 Assessment & Plan (2023 9:36 AM L D RN): Acute on chronic exacerbation Will check x-rays [...] 2023 Assessment & Plan (2023 9:36 AM L D RN): May have an element of greater trochanteric bursitis I did discuss a possible injection which I would be happy to do to see if it helps but he declined today. He prefer to have imaging completed 1st History of spinal fusion 2023 Assessment & Plan (2023 9:37 AM L D RN): I would like an MRI before deciding the next step. I would also like the opinion of his neurosurgeon. I have ordered this imaging and he will let me know when it is scheduled Fatty liver 08/09/2023 Assessment & Plan (2023 9:32 AM L D RN): Check liver function on lab work Dislocation [...] 02/28/2022 Assessment & Plan (06/25/2024 4:17 PM L D RN): Chronic condition, currently uncontrolled I recommended increasing [...] 05/2021 Assessment & Plan (06/25/2024 4:16 PM L D RN): Chronic condition, controlled Continue with Jardiance, metformin [...] future Assessment & Plan (2023 9:32 AM L D RN): Time to check A1c and urine microalbumin, ordered Continue Jardiance and metformin Sleep apnea 08/02/2020 Assessment & Plan (03/27/2024 12:21 PM CDT): Status post surgery Erectile dysfunction due to diseases classified elsewhere 02/06/2020 Overview (10/24/2022): Added automatically from request for surgery [id number] Added automatically from request for surgery [id number] Added automatically from request for surgery [id number] Assessment & Plan (03/27/2024 12:18 PM CDT): [...] 03/27/2024 Abnormal sexual function 02/28/2022 Overview (08/08/2022): Playas I: 300.04 Dysthymic Disorder Playas II: No Diagnosis Playas III: HTN Playas IV: chronic marital discord Playas V; GAF: 68 Playas I: 300.04 Dysthymic Disorder Playas II: No Diagnosis Playas III: HTN Playas IV: chronic marital discord Playas V; GAF: 68 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 Immunizations Immunization Administration Dates Next Due Hep [...] adsorbed 09/12/2003,05/15/1995 Tdap 02/26/2022,11/20/2014,07/23/2014 ZOSTER Recombinant 02/27/2023,10/24/2022 Social History Tobacco Use Types Packs/Day Years [...] on file Legal Sex Male 12:20 AM L D RN Gender Identity Male 04/30/2020 1:34 PM CDT Sexual Orientation Straight 04/30/2020 1: 34 PM CDT Last Filed Vital Signs Vital Sign Reading Time Taken Comments Blood Pressure 126/86 09/10/2024 12:52 PM L D RN Pulse 102 09/10/2024 12:52 PM L D RN Temperature 36.1 C (97 F) 09/10/2024 12:52 PM L D RN Respiratory Rate 18 09/10/2024 12:5 2 PM L D RN Oxygen Saturation 98% 09/10/2024 12: 52 PM L D RN Inhaled Oxygen Concentration - - Weight 100.9 kg (222 lb 6.4 oz) 025 12:52 PM L D RN Height 180.3 cm (5' 11 ) 09/10/2024 12: 52 PM L D RN Body Mass Index 31.02 09/10/2024 12:52 PM L D RN Plan of Treatment Not on file Medical Devices Implanted Type Area Jewelry Casting Model Maker Device Identifier Shelf Expiration Date Model / Serial / Lot [employer] Inc [id number] Ams 700 Kit Accessory Penile Prosthesis - [id number] Implanted:Qty: 1 on 05/03/2020 by Jose Manuel Chavarria MD at [facility] N/A: Penis [employer] Anamaria 03/03/2025 [id number] / / [id number] [employer] [id number] Ams 700cx Ultrex Inflatable Preconnect Tactile Pump Cylinder - [id number] Implanted:Qty: 1 on 05/03/2020 by Jose Manuel Chavarria MD at [facility] N/A: Penis [employer] Anamaria 08/27/2023 [id number] / / [id number] [employer] [id number] Ams 700 Ms Pump Preconnect Inflatable Sunbright Prosthesis 65ml - [id number] Implanted:Qty: 1 on 05/03/2020 by Jose Manuel Chavarria MD at [facility] N/A: Penis [employer] Anamaria 02/25/2022 [id number] / / [id number] Prosthesis Penile Ams 700 Cxr Tactile Pump 18cm Inflatable - [id number] Implanted:Qty: 1 on 05/03/2020 by Jose Manuel Chavarria MD at [facility] N/A: Penis [employer] Anamaria 04/10/2021 [id number] / / [id number] Description:Non-clinical carlos jamarg has demonstrated the penile prostheses AMS 700 / AMS Ambicor product line is MR Conditional. The device can be scanned safely under the following conditions: 1.5T: Max spatial Gradient Field: 450 G/cm 2Max whole body averaged CHAMP: 1.5 W/kg 3T: Max spatial Gradient Field: 720 G/cm Max whole body averaged CHAMP: 2.9 W/kg Procedures Procedure Name Priority Date/Time Associated Diagnosis Comments DIABETES EYE EXAM Routine 08/04/2024 HEMOGLOBIN A1C Routine 07/26/2024 8:24 AM L D RN Type 2 diabetes mellitus with hyperlipidemia (HCC) LIPID PANEL Routine 04/19/2024 7:38 AM CDT Type 2 diabetes mellitus with hyperlipidemia (HCC) ALBUMIN CREATININE RATIO, URINE Routine 04/19/2024 7:38 AM CDT BASIC METABOLIC PANEL Routine 04/19/2024 7:36 AM CDT Hyponatremia Meniere's disease, unspecified laterality COLONOSCOPY Routine 03/02/2023 PSA SCREEN Routine 09/05/2022 6:27 AM L D RN Screening for prostate cancer from Last 3 Months or Most Recently Relevant to Health Maintenance Results * DIABETES EYE EXAM (08/04/2024) SCRIBED DIABETIC DILATED EYE EXAM Normal Historical Provider MD HEALTH MAINTENANCE Final Result * (ABNORMAL) Hemoglobin A1c (07/26/2024 8:24 AM L D RN) Hgb A1C 7.0(H) <5.7 % of total Hgb [facility] Comment: For someone without known diabetes, [...] diabetes for children. Blood 07/26/2024 8:24 AM L D RN 07/26/2024 8:25 AM L D RN Rena CAROLINA LAB BLOOD ORDERABLES Final [facility]ul t [facility] [address] [place] [address] * Albumin Creatinine Ratio, Urine (04/19/2024 7:38 AM CDT) Creatinine, ur 164 20 - 320 mg/dL [...] 7:38 AM CDT 04/19/2024 7:39 AM CDT [facility] 04/20/2024 8:23 AM CDT FASTING:YES FASTING: YES us Rena CAROLINA LAB URINE ORDERABLES Final Resul t [facility] [address] [place] [address] * Lipid panel (04/19/2024 7:38 AM CDT) Cholesterol 114 <200 mg/dL [facility] HDL 42 > OR = 40 mg/dL [facility] Triglycerides 119 <150 mg/dL [facility] LDL 51 mg/dL (calc) [facility] Comment: Reference range: <100 Desirable range <100 mg/dL for primary prevention; <70 mg/dL for patients with CHD or diabetic patients with > or = 2 CHD risk factors. LDL-C is now calculated using the Joby calculation, which is a validated novel method providing better accuracy than the Friedewald equation in the estimation of LDL-C. Gerry RENDON et al. CANDELARIA. 2013;310(19): 5104-4461 (http://education.Magnolia [employer].jigl/faq/PYR083) Chol/HDL ratio 2.7 <5.0 (calc) [facility] 04/20/2024 8:23 AM CDT FASTING:YES FASTING: YES us Rena CAROLINA LAB BLOOD ORDERABLES Final Resul t [facility] [address] [place] [address] * (ABNORMAL) Basic metabolic panel (04/19/2024 7:36 AM CDT) Pathologist [facility] Glucose 138(H) 65 - 99 mg/dL [facility] [...] CAROLINA LAB BLOOD ORDERABLES Final Resul t [facility] [address] [address] * Colonoscopy (03/02/2023) Anatomical Region Laterality Modality Other [facility] Provider MD ENDOSCOPY PROCEDURES Saige l Result * PSA screen (09/05/2022 6:27 AM L D RN) PSA 0.41 < OR = 4.00 ng/mL [facility] Comment: The total PSA value [...] copy faxed has been acknowledged. Queued to: [id number] Blood 09/05/2022 6:27 AM L D RN 09/05/2022 6:30 AM L D RN Narrative [facility] - 09/06/2022 3:12 AM L D RN FASTING:YES FASTING: YES Rena CAROLINA LAB BLOOD ORDERABLES Final Resul t [facility] [address] [address] [address] from Last 3 Months or Most Recently Relevant to Health Maintenance Insurance [facility] CLAIMS [employer] [place] [address] [facility] CLAIMS [employer] [place] [facility] CLAIMS [facility] OOS Advance Directives For more information, please contact: [phone] * Full Code (Latest Code Status on File) Date Activated Date Inactivated Comments 05/03/2020 11:00 AM 05/04/2020 1:51 PM Care Teams Scale Adjuster Relationship Specialty Start Date End Date Rena Wakefield PA [address] [place] [address] PCP - General Critical Care Med 08/08/22 [place] [address] [address] [facility] [address] [place] [address] Consulting Physician Urology 05/04/20
--- OUTSIDE RECORDS SUMMARY | 2024-09-24 16:14 | XMS_ITS | Patient Health Record ---
Author Organization [facility] Address [address] [place] [address] Care Team Providers Care Director Hedis Name Role Phone Rena Chambers Primary Care Provider Unavailab shabbir AMARAL MD, RAY Unavailable [phone] REASON FOR REFERRAL No Information PLAN OF TREATMENT No Information Insurance Providers Payer Name Payer Address Payer Phone Subscriber Number Group Number Insured Name Patient Relationship to Insured Coverage Start Date Coverage End Date [facility] PPO [address] [place], [place] [id number] Russell Jeronimo Self - patient is the insured for Life - Medicare Sup [address] [place], [place] [id number] Russell Jeronimo Self - patient is the insured
--- OUTSIDE RECORDS SUMMARY | 2024-09-24 16:14 | XMS_ITS | Patient Health Record ---
Author Organization [facility] , Address [address] [place] [address] Care Team Providers Care Weaving Inspector Name Role Phone Rena Melara Primary Care Provider UnavailShmuel Rust Unavailable [phone] Justo Cooley Unavailable [phone] Arlyn Cr Unavailable [phone] ALLERGIES Allergen (clinical drug ingredient) Drug/Non Drug Allergy documented on EMR Reaction Allergy Type Onset Date Status bacitracin Bacitracin Unknown Drug Allergy Activ e Keflex Unknown Drug Allergy Active ketorolac toradol (uncoded) Unknown Allergy Ac tive RESULTS Component Value Reference Range Notes X ray : Lumbar Spine 3 views , AP, Lateral, Spot Reviewed date:10/31/2023 02:55:38 PM Interpretation:done Performing Lab: Notes/Report: done X ray : Lumbar Spine 3 views , AP, Lateral, Spot Reviewed date:05/22/2024 10:17:34 AM Interpretation:[id number] Performing Lab: Notes/Report: 1150 MRI : Lumbar without contras t Reviewed date:08/04/2024 10:40:35 AM Interpretation:approved Performing Lab: Notes/Report: approved REASON FOR REFERRAL No Information MEDICATIONS Medication SIG (Take, Route, Fr equency, Duration) Notes Start Date End Date Status Atorvastatin Calcium Active metFORMIN HCl Active Dyclonine HCl Active Nortriptyline HCl Ac tive Bystolic Active Lisinopril Active Gabapentin 300 1 tab by mouth every 8 hours 2021 Unknown Diclofenac Active predniSONE 10 MG 1 tablet Orally twic e a day for 7 days 10/11/2021 Unknown Aspirin Active PredniSONE 20 MG 1 tablet Orally TID for three days, BID for three days, then 1 a day for three days. 10/17/2021 Unknown Ultram 50 MG 1 tablet as needed O rally every 6-8 hrs 10/26/2021 Unknown Percocet 5-325 MG 1 tablet as needed O rally every 4 hrs 10/31/2021 Unknown SOCIAL HISTORY Tobacco Use: Social History Observation Description Date Details (start date - stop date) Never Smoker NA - NA Sex Assigned At : Social History Observation Description Sex Assigned At Unknown Tobacco Use/Smoking Question Answer Notes Are you a nonsmoker PROBLEMS Problem Type ICD Code Onset Dates Problem Status W/U Status Risk SNOMED Code Notes Problem Herniated nucleus pulposis of lumbosacral region (M51.27) Active confirmed Displacement of lumbar intervertebral disc without myelopathy (32114234) Problem Lumbar stenosis with neurogenic claudication (M48.062) Active confirmed Neurogenic claudication (268762276) Problem Lumbar radiculopathy (M54.16) Active confirmed Lumbar radiculopathy (854437031) Problem Spondylolisthesis of lumbar region (M43.16) Active confirmed Acquired spondylolisthesis (506031631) Problem Facet degeneration of lumbar region (M47.816) Active confirmed Lumbosacral spondylosis without myelopathy (35083225) Problem Disc displacement, lumbar (M51.26) Active confirmed Displacement of lumbar intervertebral disc without myelopathy (04386906) Problem Low back pain of multiple sites of spine with sciatica (M54.40) Active confirmed Sciatica (67282437) VITAL SIGNS Height 70 in 08/21/2024 Weight 216 lbs 08/21/2024 BMI 30.99 kg/m2 08/21/2024 PROCEDURES Procedure Date Ordered Date Performed Result Body Sit e Lumbar Transforaminal Epidur al Steroid Injection 05/21/2024 05/21/2024 completed Lumbar Decompression 08/21/2024 09/11/2024 approved Encounters Encounter Location Date Provider Diagnosis [facility] [address] [place] [address] 10/04/2023 Arlyn Cr [facility] [address] [place] [address] 10/31/2023 Arlyn Vandergriff Lumbar radiculopathy M54.16 and Disc displacement, lumbar M51.26 [facility] [address] [place] [address] 05/27/2024 Arlyn Cr [facility] [address] [place] [address] 05/27/2024 Arlyn Cr [facility] [address] [place] [address] 05/21/2024 Arlyn Cr Lumbar radiculopathy M54.16 and Other low back pain M54.59 [facility] [address] [place] [address] 08/21/2024 Shmuel Vargas Lumbar stenosis with neurogenic claudication M48.062 [facility] [address] [place] [address] 09/18/2024 Justo Cooley [facility] [address] [place] [address] 09/18/2024 Shmuel Vargas [facility] [address] [place] [address] 06/10/2024 Shmuel Vargas [facility] [address] [address] 07/09/2024 Shmuel Vargas [facility] [address] [place] [address] 07/24/2024 Shmuel Vargas Lumbar radiculopathy M54.16 [facility] [address] [place] [address] 08/04/2024 Shmuel Vargas [facility] [address] [place] [address] 08/06/2024 Shmuel Vargas [facility] [address] [place] [address] 08/21/2024 Shmuel Vargas Lumbar stenosis with neurogenic claudication M48.062 [facility] [address] [place] [address] 09/03/2024 Shmuel Vargas [facility] [address] [facility] [address] [place] [address] 09/10/2024 Shmuel Vargas [facility] [address] [facility] [address] [place] [address] 09/16/2024 Shmuel Vargas ASSESSMENTS Encounter Date Diagnosis Assessment Notes Treatment Notes Treatment Clinical Notes 10/31/2023 Lumbar radiculopathy (ICD-10 - M54.16) 05/21/2024 Lumbar radiculopathy (ICD-10 - M54.16) 08/21/2024 Lumbar stenosis with neurogenic claudication (ICD-10 - M48.062) 10/31/2023 Disc displacement, lumbar (ICD-10 - M51.26) 05/21/2024 Other low back pain (ICD-10 - M54.59) 07/24/2024 Lumbar radiculopathy (ICD-10 - M54.16) 08/21/2024 Lumbar stenosis with neurogenic claudication (ICD-10 - M48.062) PLAN OF TREATMENT Pending Test Test Name Order Date Lumbar Decompression 08/21/2024 Lumbar Decompression and Transforminal I nterbody Fusion 09/21/2021 Next Appt Details Provider Name:Justo Cooley, 10/02/2024 08:30:00 AM, [address] , [place], [address], Provider Name:Shmuel Vargas, 10/02/2024 08:30:00 AM, [address] , [place], [address], Insurance Providers Payer Name Payer Address Payer Phone Subscriber Number Group Number Insured Name Patient Relationship to Insured Coverage Start Date Coverage End Date Sherita CHING Sc [address] Health Claims Dept [place], [place] [id number] [phone] [id number] Russell Jeronimo Self - patient is the insured [facility]ly [facility] [address] [place] [address] [id number] Russell Jeronimo Self - patient is the insured MEDICAL (GENERAL) HISTORY Medical History History ICD Code Hypertension IBS Diabetes Surgical History Surgery Date(Month/Year) L4-S1 Fusions 10/13/21 Hospitalization History Reason Date(Month/Year) As per above.
--- OUTSIDE RECORDS SUMMARY | 2024-09-24 16:14 | XMS_ITS | Patient Health Summary ---
Author Organization [facility] Address [address] [place] [address] Care Team Providers Care Leather Softener Name Role Phone Vanessa Stacy MD Primary Care Provider [phone] Note from [facility],non-owned Affiliates and Associated Physician Practices is amultiple site organization consisting of ambulatory clinics and hospital sitesin [place], [place], [place] and [place]. This disclosure is being madepursuant to the Care Everywhere program and may not contain all information available regarding this patient. Last updated 18.[facility] Allergies * Bacitracin(Rash) -High Criticality * Cetyl Dimethicone(Urticaria) -Medium Criticality * Codeine(Unknown) * Dimethicone(Urticaria) -High Criticality * Keflex(Rash) -High Criticality * Ketorolac(Rash) -Medium Criticality * Testosterone(Rash) -Medium Criticality Medications * Be aware that medications may not be up to date on this document. Alwaysverify current medications with the patient. * aspirin EC (ECOTRIN) 81 MG tablet(Started 08/02/2020) Take 1 (one) tablet by mouth once daily * cyclobenzaprine (FLEXERIL) 10 MG tablet Take 1 (one) tablet by mouth once daily * guaiFENesin 400 MG tablet(Started 04/11/2021) Take 1 (one) tablet by mouth as needed * LORazepam (ATIVAN) 1 MG tablet(Started 09/14/2021) Take 1 (one) tablet by mouth once daily * meclizine (ANTIVERT) 25 MG tablet(Started 11/24/2021) Take 1 (one) tablet by mouth 3 times daily as needed * traZODone (DESYREL) 100 MG tablet Take 1 (one) tablet by mouth as needed * atorvastatin (Lipitor) 20 MG tablet(Started 10/05/2021) Take 1 (one) tablet by mouth at bedtime * ondansetron (Zofran) 8 MG tablet Take 1 (one) tablet by mouth every 6 hours as needed for Nausea/Vomiting * metFORMIN (Glucophage) 500 MG tablet Take 1 (one) tablet by mouth once daily * Jardiance 25 MG tablet(Started 12/21/2023) Take 1 (one) tablet by mouth once daily * triamterene-hydroCHLOROthiazide (Maxzide-25) 37.5-25 MG tablet(Started 12/23/2023) Take 1 (one) tablet by mouth once daily * dicyclomine (Bentyl) 10 MG capsule Take 1 (one) capsule by mouth 4 times daily * diclofenac sodium EC (Voltaren) 50 MG tablet(Started 11/15/2023) Take 1 (one) tablet by mouth 2 times daily * vilazodone (Viibryd) 10 MG tablet(Started 02/12/2024) Take 1 (one) tablet by mouth once daily * lisinopril (Prinivil; Zestril) 10 MG tablet(Started 01/23/2024) Take 1 (one) tablet by mouth once daily * nortriptyline (Pamelor) 50 MG capsule(Started 06/16/2023) Take 1 (one) capsule by mouth once daily * triamcinolone acetonide (Kenalog) 0.5 % cream(Started 11/02/2023) Apply to affected area as needed * busPIRone (Buspar) 10 MG tablet(Started 03/26/2024) Take 1 (one) tablet by mouth 3 times daily * testosterone 2 mg 2 mg capsule Take 1 (one) capsule by mouth once daily * testosterone 7.5 mg/0.1ml 7.5MG/0.1ML injection Inject 7.5 mg into muscle every 7 days * nebivolol (Bystolic) 20 MG tablet(Started 06/25/2024) Take 1 (one) tablet by mouth once daily * Rybelsus 7 MG tablet(Started 06/02/2024) Take 1 (one) tablet by mouth daily before breakfast * doxycycline monohydrate 100 MG tablet(Started 07/26/2024) Take 1 (one) tablet by mouth 2 times daily FOR 7 DAYS * montelukast (Singulair) 10 MG tablet(Started 08/22/2024) Take 1 (one) tablet by mouth once daily * tamsulosin (Flomax) 0.4 MG capsule(Started 09/03/2024) Take 1 (one) capsule by mouth once daily Ended Medications* nebivolol (BYSTOLIC) 10 MG tablet(Discontinued) Take 1 (one) tablet by mouth once daily * semaglutide (Rybelsus) 3 MG tablet(Started 03/26/2024)(Discontinued) Take 3 mg by mouth once daily * amoxicillin-clavulanate (Augmentin) 875-125 MG tablet(Started 03/20/2024) (Discontinued) Take 1 (one) tablet by mouth every 12 hours Active Problems Problem Noted Date Diagnosed Date Degeneration of cervical intervertebral disc 03/2022 Fear of injections and transfusions 02/28/2022 Lumbosacral spondylosis without myelopathy 02/28 Abnormal sexual function 02/28/2022 Arthropathy of knee 02/28/2022 Behavior problem 02/28/2022 Benign essential hypertension 02/28/2022 Cervicalgia 02/28/2022 Chronic low back pain 02/28/2022 Chronic sinusitis 02/28/2022 Depression 02/28/2022 Hypogonadism 02/28/2022 Marital problem 02/28/2022 Pain in joint, lower leg 02/28/2022 Partner relational problem 02/28/2022 Patellofemoral syndrome 02/28/2022 Postoperative care for cataract 02/28/2022 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 02/28/2022 Secondary localized osteoarthrosis of shoulder r egion 02/28/2022 Testicular hypofunction 02/28/2022 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 Melanocytic nevus of skin 04/01/2021 Pain in right knee 04/01/2021 Decreased testosterone level 08/02/2020 Hyperchloremia 08/02/2020 Sleep apnea 08/02/2020 Type 2 diabetes mellitus 08/02/2020 Erectile dysfunction due to diseases classified elsewhere 02/06/2020 Hypercholesteremia 04/25/2018 Precordial pain 04/25/2018 Irritable bowel syndrome 09/28/2016 Hypertension 04/30/2014 Pain in left shoulder 10/16/2012 Dermatitis 01/31/2012 Hand eczema 01/31/2012 Venous insufficiency (chronic) (peripheral) 05/0 09/2011 Cutaneous abscess 11/02/2011 Follicular disorder 11/02/2011 Irritant contact dermatitis 11/02/2011 Resolved Problems Problem Noted Date Diagnosed Date Resolved Date Acute pharyngitis 02/28/2022 03/14/2022 Pneumonia 02/28/2022 03/28/2022 Immunizations * Covid Pfizer primary monovalent 12+ yr 0.3mL Purple cap(Given 09/28/2020, 08/31/2020) * FLU VACCINE QUAD IIV4 SPLIT 0.25 ML IM(Given 05/23/2023) * HEP A VACCINE, ADULT(Given 06/04/1997) * INFLUENZA VACCINE(Given 07/23/2022, 07/14/2014, 06/30/2014) * INFLUENZA VACCINE, CELL CULTURE, QUADR. (FLUCELVAX QUADRIVALENT; 6MO+) (CCIIV4)(Given 05/26/2022) * INFLUENZA VACCINE, CELL CULTURE, TRIV. (FLUCELVAX TRIVALENT; 6MO+), 0.5 ML (CCIIV3)(Given 05/29/2024, 05/26/2022) * INFLUENZA VACCINE, QUADR. (AFLURIA, FLUZONE QUADRIVALENT; 6MO+) (IIV4)(Given 06/12/2005, 08/04/2004) * INFLUENZA VACCINE, QUADR. (FLUZONE; FLULAVAL; FLUARIX; AFLURIA QUADRIVALENT; 6MO+), 0.5 ML (IIV4)(Given 05/25/2023, 04/01/2021, 05/04/2020, 09/04/2019) * MODERNA SARS-COV-2 COVID-19 VACCINE 0.25ML(Given 11/30/2021, 06/13/2021) * Measles & Rubella(Given 10/04/1983) * PNEUMOCOCCAL PCV20 CONJ VAC IM(Given 10/31/2022) * PNEUMOCOCCAL PPSV23(Given 12/22/2019, 09/04/2019) * POLIO OPV(Given 12/10/1984) * TDAP (7yrs+)(Given 07/23/2014) * TDAP, HISTORIC VACCINE(Given 02/26/2022, 11/20/2014) * Td (Adult), 2 Lf Tetanus Toxoid, Adsorbed, Pf(Given 09/12/2003, 05/15/1995) * Zoster Hzv Vacc Recombinant Inj Im(Given 02/27/2023, 10/24/2022) Social History Tobacco Use Types Packs/Day Years Used Date Smoking Tobacco: Never Smokeless Tobacco: Never Tobacco Cessation:Counseling Given: Not Answered Alcohol Use Standard Drinks/Week Comments Yes 5 (1 standard drink = 0.6 oz pur e alcohol) Sex and Gender Information Value Date Recorded Sex Assigned at Male 05/26/2022 9:48 AM CDT Gender Identity Male 05/26/2022 9:48 AM CDT Sexual Orientation Straight 05/26/2022 9: 48 AM CDT Last Filed Vital Signs Vital Sign Reading Time Taken Comments Blood Pressure 129/81 09/04/2024 1:45 PM NATIONAL SALES DIRECTOR Pulse 101 09/04/2024 1:45 PM NATIONAL SALES DIRECTOR Temperature 36.7 C (98 F) 03/04/2013 3:23 PM CDT Respiratory Rate 16 01/11/2022 2:08 PM CDT Oxygen Saturation 94% 09/04/2024 1:45 PM NATIONAL SALES DIRECTOR Inhaled Oxygen Concentration - - Weight 100.8 kg (222 lb 3.2 oz) 09/04/2024 1:45 PM NATIONAL SALES DIRECTOR Height 180.3 cm (5' 11 ) 09/04/2024 1:45 PM NATIONAL SALES DIRECTOR Body Mass Index 30.99 09/04/2024 1:45 PM NATIONAL SALES DIRECTOR Medical Devices Implanted Type Area Surveyor Chain Helper Device Identifier Shelf Expiration Date Model / Serial / Lot Ams 700 Penile Implant Other (Type not listed) Description:1.5T AND 3T COND ITIONAL FOR MRI Procedures * DE LABYRINTHOTOMY(Performed 09/04/2024) Performed for Meniere's disease of right ear * DE LABYRINTHOTOMY(Performed 07/03/2024) Performed for Meniere's disease of right ear * DE LABYRINTHOTOMY(Performed 05/05/2024) Performed for Meniere's disease of right ear * DE LABYRINTHOTOMY(Performed 03/17/2024) Performed for Meniere's disease of right ear * MRI IAC WWO CONTRAST(Performed 01/03/2024) Performed for Sensorineural hearing loss (SNHL) of right ear with restricted hearing of left ear * CREATININE - POCT INTERFACED(Performed 01/03/2024) * DE LABYRINTHOTOMY(Performed 01/03/2024) Performed for Meniere's disease of right ear * DE LABYRINTHOTOMY(Performed 12/19/2023) Performed for Meniere's disease of right ear * AUDIOLOGY/TYMPANOMETRY ORDER(Performed 12/05/2023) * AUDIOLOGY/TYMPANOMETRY ORDER(Performed 05/25/2022) * DE DRAIN/INJECT LARGE JOINT/BURSA(Performed 02/28/2022) Performed for Right lateral epicondylitis * DE DRAIN/INJECT LARGE JOINT/BURSA(Performed 02/28/2022) Performed for Chronic left shoulder pain * XR SHOULDER LEFT 2VW OR MORE(Performed 02/28/2022) Performed for Left shoulder pain, unspecified chronicity * XR ELBOW RIGHT 3VW OR MORE(Performed 02/28/2022) Performed for Right elbow pain * AUDIOLOGY/TYMPANOMETRY ORDER(Performed 02/09/2022) * CT TEMPORAL BONES WO CONTRAST(Performed 02/09/2022) Performed for Dizziness, Pulsatile tinnitus of both ears, SNHL (sensory-neural hearing loss), asymmetrical * CULTURE URINE(Performed 04/23/2014) * COMPREHENSIVE METABOLIC PANEL(Performed 05/15/2013) * CBC W AUTO DIFFERENTIAL(Performed 05/15/2013) * COMPREHENSIVE METABOLIC PANEL(Performed 04/15/2013) * CBC W AUTO DIFFERENTIAL(Performed 04/15/2013) * XR KNEE LEFT 3VW(Performed 03/04/2013) * XR KNEE RIGHT 3VW(Performed 03/04/2013) * XR LUMBAR SPINE 2 OR 3VW(Performed 02/11/2013) * COMPREHENSIVE METABOLIC PANEL(Performed 01/07/2013) * CBC W AUTO DIFFERENTIAL(Performed 01/07/2013) * COMPREHENSIVE METABOLIC PANEL(Performed 10/28/2012) * CBC W AUTO DIFFERENTIAL(Performed 10/28/2012) * MRI SHOULDER LEFT WO CONTRAST(Performed 10/25/2012) * XR SHOULDER LEFT 2VW OR MORE(Performed 10/16/2012) * HEPATIC FUNCTION PANEL(Performed 09/25/2012) * CBC W AUTO DIFFERENTIAL(Performed 09/25/2012) * HEPATIC FUNCTION PANEL(Performed 09/11/2012) * CBC W AUTO DIFFERENTIAL(Performed 09/11/2012) * HEPATIC FUNCTION PANEL(Performed 08/08/2012) * CBC W AUTO DIFFERENTIAL(Performed 08/08/2012) * HEPATIC FUNCTION PANEL(Performed 07/25/2012) * CBC W AUTO DIFFERENTIAL(Performed 07/25/2012) * HEPATIC FUNCTION PANEL(Performed 07/18/2012) * CBC W AUTO DIFFERENTIAL(Performed 07/18/2012) * CBC W AUTO DIFFERENTIAL(Performed 07/05/2012) * COMPREHENSIVE METABOLIC PANEL(Performed 07/05/2012) * CULTURE AEROBIC(Performed 06/28/2012) * HEPATITIS SCREEN ACUTE(Performed 06/25/2012) * CULTURE AEROBIC(Performed 03/03/2012) * CULTURE AEROBIC(Performed 11/27/2011) * CULTURE FUNGUS SKIN HAIR NAILS(Performed 11/27/2011) * CULTURE AEROBIC(Performed 11/05/2011) * CULTURE AEROBIC(Performed 11/05/2011) Results * DE LABYRINTHOTOMY (09/04/2024 2:14 PM NATIONAL SALES DIRECTOR) Narrative Marshall Morin MD - 09/04/2024 2:14 PM NATIONAL SALES DIRECTOR Marshall Morin MD 09/04/2024 2:26 PM Procedure: Chemical Labyrinthotomy AD Indications: Meniere's syndrome Side: right Consent: Informed consent was obtained and the patient is aware of the risks, benefits and alternatives of the planned procedure, including tympanic membrane perforation, worsening of hearing and/or dizziness, lack of benefit, taste disturbance, among other issues. All questions were answered and the patient desired to proceed. Procedure in detail: The patient was layed semi-supine and an ear speculum and the binocular operating microscope were used to access the ear canal. The anterior superior quadrant of the TM was utilized. A pinpoint myringotomy was made with a 25 gauge spinal needle. Dexamethasone 10 mg/ml 0.5 ml was injected into the middle ear space. Access to drug thru the round window membrane into the inner ear was facilitated by having the patient lay with head turned to the opposite side at 45 degrees for 15 minutes. The patient was asked to minimize swallowing. The patient tolerated the procedure well and was able to ambulate without difficulty. See scanned consent form for beginning and end times, etc Marshall Morin MD Marshall Morin MD PROCEDURE/MINOR LOS GICAL ORDERABLES * DE LABYRINTHOTOMY (07/03/2024 4:29 PM NATIONAL SALES DIRECTOR) Narrative Marshall Morin MD - 07/03/2024 4:29 PM NATIONAL SALES DIRECTOR Marshall Morin MD 07/03/2024 4:36 PM Procedure: Chemical Labyrinthotomy AD Indications: Meniere's syndrome Side: right Consent: Informed consent was obtained and the patient is aware of the risks, benefits and alternatives of the planned procedure, including tympanic membrane perforation, worsening of hearing and/or dizziness, lack of benefit, taste disturbance, among other issues. All questions were answered and the patient desired to proceed. Procedure in detail: The patient was layed semi-supine and an ear speculum and the binocular operating microscope were used to access the ear canal. The anterior superior quadrant of the TM was utilized. A pinpoint myringotomy was made with a 25 gauge spinal needle. Dexamethasone 10 mg/ml 0.5 ml was injected into the middle ear space. Access to drug thru the round window membrane into the inner ear was facilitated by having the patient lay with head turned to the opposite side at 45 degrees for 15 minutes. The patient was asked to minimize swallowing. The patient tolerated the procedure well and was able to ambulate without difficulty. See scanned consent form for beginning and end times, etc Marshall Morin MD Marshall Morin MD PROCEDURE/MINOR LOS GICAL ORDERABLES * DE LABYRINTHOTOMY (05/05/2024 4:27 PM CDT) Narrative Marshall Morin MD - 05/05/2024 4:27 PM CDT Marshall Morin MD 05/05/2024 4:27 PM Procedure: Chemical Labyrinthotomy AD Indications: Meniere's syndrome Side: right Consent: Informed consent was obtained and the patient is aware of the risks, benefits and alternatives of the planned procedure, including tympanic membrane perforation, worsening of hearing and/or dizziness, lack of benefit, taste disturbance, among other issues. All questions were answered and the patient desired to proceed. Procedure in detail: The patient was layed semi-supine and an ear speculum and the binocular operating microscope were used to access the ear canal. The anterior superior quadrant of the TM was utilized. A pinpoint myringotomy was made with a 25 gauge spinal needle. Dexamethasone 10 mg/ml 0.5 ml was injected into the middle ear space. Access to drug thru the round window membrane into the inner ear was facilitated by having the patient lay with head turned to the opposite side at 45 degrees for 15 minutes. The patient was asked to minimize swallowing. The patient tolerated the procedure well and was able to ambulate without difficulty. See scanned consent form for beginning and end times Marshall Morin MD Marshall Morin MD PROCEDURE/MINOR LOS GICAL ORDERABLES * DE LABYRINTHOTOMY (03/17/2024 3:12 PM CDT) Narrative Marshall Morin MD - 03/17/2024 3:12 PM CDT Marshall Morin MD 03/17/2024 3:13 PM Procedure: Chemical Labyrinthotomy AD Indications: Meniere's syndrome Side: right Consent: Informed consent was obtained and the patient is aware of the risks, benefits and alternatives of the planned procedure, including tympanic membrane perforation, worsening of hearing and/or dizziness, lack of benefit, taste disturbance, among other issues. All questions were answered and the patient desired to proceed. Procedure in detail: The patient was layed semi-supine and an ear speculum and the binocular operating microscope were used to access the ear canal. The anterior superior quadrant of the TM was utilized. A pinpoint myringotomy was made with a 25 gauge spinal needle. Dexamethasone 10 mg/ml 0.5 ml was injected into the middle ear space. Access to drug thru the round window membrane into the inner ear was facilitated by having the patient lay with head turned to the opposite side at 45 degrees for 15 minutes. The patient was asked to minimize swallowing. The patient tolerated the procedure well and was able to ambulate without difficulty. See scanned consent form for beginning and end times Marshall Morin MD Marshall Morin MD PROCEDURE/MINOR LOS GICAL ORDERABLES * MRI IAC WWO CONTRAST (01/03/2024 5:51 PM CDT) Anatomical Region Laterality Modality Head Magnetic Resonan ce 01/04/2024 1:11 PM CDT Impressions 01/04/2024 1:22 PM CDT IMPRESSION: 1. Essentially normal MRI of the brain and internal auditory canals. No MRI findings to explain patient's symptoms. 2. Compleat opacification with diffusion restriction, mucosal enhancement and thickening suggesting severe infectious sinusitis of the left maxillary sinus > Interpreting Provider: Krzysztof Fuller MD on 01/04/2024 1:22 PM Narrative 01/04/2024 1:22 PM CDT PROCEDURE: MRI IAC WWO CONTRAST, DATE/TIME OF EXAM: 01/03/2024 5:51 PM, LOCATION [facility] INDICATION: H90.A21: Sensorineural hearing loss (SNHL) of right ear with restricted hearing of left ear ADDITIONAL CLINICAL INFORMATION: Ordering Provider Reason For Exam: Technologist Note: Additional: EXAMINATION: Magnetic resonance imaging (MRI) of the brain without and with contrast TECHNIQUE: MRI of the brain was performed prior to and following the uneventful administration of 10 mL Gadavist intravenous contrast according to an internal auditory canal (IAC) protocol. This included high resolution axial and coronal sequences through the lower cranial nerves and skull base. FINDINGS: 02/09/2022. No evidence of acute cerebral infarction is seen. No evidence of acute or chronic hemorrhage is identified. The ventricles are of normal size, shape, and morphology. No mass effect or midline shift is seen. The corpus callosum and sella appear normal. The posterior fossa, brainstem, and craniocervical junction appear normal. The cerebellopontine angles and internal auditory canals appear normal. No enhancing lesions are identified along the course of the cranial nerve 7/8 complexes. The signal within the bony labyrinth appears normal on both sides. The mastoids appear normal. The posterior fossa, brainstem, and craniocervical junction appear normal. The visualized portions of the brain appear normal. Other than complete opacification with diffusion restriction and mucosal enhancement and thickening suggesting severe infectious sinusitis of the left maxillary sinus, the visualized portions of the orbits, paranasal sinuses, and mastoids appear normal. Normal flow voids are demonstrated in the carotid arteries and basilar artery. Procedure Note Krzysztof Fuller MD - 01/04/2024 PROCEDURE: MRI IAC WWO CONTRAST, DATE/TIME OF EXAM: 01/03/2024 5:51 PM, LOCATION [facility] INDICATION: H90.A21: Sensorineural hearing loss (SNHL) of right ear with restricted hearing of left ear ADDITIONAL CLINICAL INFORMATION: Ordering Provider Reason For Exam: Technologist Note: Additional: EXAMINATION: Magnetic resonance imaging (MRI) of the brain without andwith contrast TECHNIQUE: MRI of the brain was performed prior to and following the uneventful administration of 10 mL Gadavist intravenous contrastaccording to an internal auditory canal (IAC) protocol. This included highresolution axial and coronal sequences through the lower cranial nerves and skull base. FINDINGS: 02/09/2022. No evidence of acute cerebral infarction is seen. No evidence of acuteor chronic hemorrhage is identified. The ventricles are of normal size,shape, and morphology. No mass effect or midline shift is seen. The corpus callosum and sella appear normal. The posterior fossa, brainstem, and craniocervical junction appear normal. The cerebellopontine angles and internal auditory canals appear normal.No enhancing lesions are identified along the course of the cranial nerve7/8 complexes. The signal within the bony labyrinth appears normal on both sides. The mastoids appear normal. The posterior fossa, brainstem, and craniocervical junction appearnormal. The visualized portions of the brain appear normal. Other than complete opacification with diffusion restriction and mucosal enhancement and thickening suggesting severe infectious sinusitis of the left maxillary sinus, the visualized portions of the orbits, paranasal sinuses, and mastoids appear normal. Normal flow voids are demonstratedin the carotid arteries and basilar artery. IMPRESSION: 1. Essentially normal MRI of the brain and internal auditory canals. NoMRI findings to explain patient's symptoms. 2. Compleat opacification with diffusion restriction, mucosalenhancement and thickening suggesting severe infectious sinusitis of the leftmaxillary sinus > Interpreting Provider: Krzysztof Fuller MD on 01/04/2024 1:22 PM Marshall Morin MD MR ORDERABLES * (ABNORMAL) CREATININE - POCT INTERFACED (01/03/2024 4:51 PM CDT) Creatinine POCT 1.13 0.30 - 1.30 mg/dL 01/03/2024 4:53 PM CDT [facility] eGFR 75(L) >=90 mL/min/1.7 3 m2 01/03/2024 4:53 PM CDT [facility] Blood BLOOD SPECIMEN / Unknown 01/03/2024 4:51 PM CDT 01/03/2024 4:53 PM CDT Marshall Morin MD LAB - POINT OF CARE ORDERABLES [facility] [address] [place] [address], [facility] [phone] * DE LABYRINTHOTOMY (01/03/2024 3:40 PM CDT) Marshall Boucher MD - 01/03/2024 3:40 PM CDT Marshall Morin MD 01/03/2024 5:01 PM Procedure: Chemical Labyrinthotomy AD Indications: Meniere's syndrome Side: right Consent: Informed consent was obtained and the patient is aware of the risks, benefits and alternatives of the planned procedure, including tympanic membrane perforation, worsening of hearing and/or dizziness, lack of benefit, taste disturbance, among other issues. All questions were answered and the patient desired to proceed. Procedure in detail: The patient was layed semi-supine and an ear speculum and the binocular operating microscope were used to access the ear canal. The anterior superior quadrant of the TM was utilized. A pinpoint myringotomy was made with a 25 gauge spinal needle. Dexamethasone 10 mg/ml 0.5 ml was injected into the middle ear space. Access to drug thru the round window membrane into the inner ear was facilitated by having the patient lay with head turned to the opposite side at 45 degrees for 15 minutes. The patient was asked to minimize swallowing. The patient tolerated the procedure well and was able to ambulate without difficulty. See scanned consent form for beginning and end times Marshall Morin MD Marshall Morin MD PROCEDURE/MINOR LOS GICAL ORDERABLES * DE LABYRINTHOTOMY (12/19/2023 2:52 PM CDT) Marshall Boucher MD - 12/19/2023 2:52 PM CDT Marshall Morin MD 12/19/2023 2:56 PM Procedure: Chemical Labyrinthotomy AD Indications: Meniere's syndrome Side: right Consent: Informed consent was obtained and the patient is aware of the risks, benefits and alternatives of the planned procedure, including tympanic membrane perforation, worsening of hearing and/or dizziness, lack of benefit, taste disturbance, among other issues. All questions were answered and the patient desired to proceed. Procedure in detail: The patient was layed semi-supine and an ear speculum and the binocular operating microscope were used to access the ear canal. The anterior superior quadrant of the TM was utilized. A pinpoint myringotomy was made with a 25 gauge spinal needle. Dexamethasone 10 mg/ml 0.5 ml was injected into the middle ear space. Access to drug thru the round window membrane into the inner ear was facilitated by having the patient lay with head turned to the opposite side at 45 degrees for 15 minutes. The patient was asked to minimize swallowing. The patient tolerated the procedure well and was able to ambulate without difficulty. Marshall Morin MD Marshall Morin MD PROCEDURE/MINOR LOS GICAL ORDERABLES * AUDIOLOGY/TYMPANOMETRY ORDER (12/05/2023 2:41 PM CDT) Narrative Sobia Sood, Kwame - 12/05/2023 3:14 PM CDT Subjective: Russell Jeronimo is a 58 year old male who is here for a hearing evaluation on 12/05/23. Pt reports: Suspects possible decline in R hearing- R hearing really sensitive within the past wk; typically experiences fluctuations in hearing; R MALDONADO user the past yr (from elsewhere); after R hearing sensitivity the next day experienced a dizzy episode which lasted ~ 6 hrs- room was spinning and sickness occurred; some ear pressure/fullness AU; tinnitus AU- bells & tones Pt denies: Ear pain/drainage Tympanometry: R=Type A; L= Type A Assessment: R= Moderate rising to mild sloping to severe SNHL L= Moderate to moderately-severe SNHL 6-8 kHz 12/05/23 WRS: R= 92%; L= 96% (05/25/22 WRS: R= 96%; L= DNT) (02/09/22 WRS: R= 92%; L= 100%) Consistent asymmetry R LF poorer than L; decline in R LFs found today. Reviewed today's hearing test results. Recommend f/u with Dr. Oropeza. Rec: 1) Follow up with already scheduled appt with Dr. Oropeza 2) Re-test hearing per medical recommendation and/or annual hearing test 3) Continue R MALDONADO use, may want to consider different volume settings- f/u with fitting provider for this 4) Wear HPD in noise Kwame Venegas, [facility]-A Cement Tester Assistant Sobia Puente AUDIOLOGY SERVICES ORDERABLES * AUDIOLOGY/TYMPANOMETRY ORDER (05/25/2022 12:35 PM CDT) Narrative [place] Escalante [facility]D - 05/25/2022 1:01 PM CDT History: Russell Jeronimo arrived for a hearing evaluation. Patient reports issues with fluctuating hearing loss RT. He has recurrent episodes of vertigo lasting several hours with nausea. His last attack was approximately one week ago. He does have some fullness and tinnitus, but notes that is in both ears when it happens. He notices the hearing loss in the right ear mostly in noisy environments when he is having a harder time understanding conversations. Results: Puretone air/bone conduction testing revealed a moderate rising to normal, sloping to moderately severe SN hearing loss in the right ear and normal sloping to mild SN hearing loss in the left ear. Speech understanding was excellent in the right ear, left ear was not tested today. When compared to the previous hearing test, today's results do indicate a decrease in hearing for the right ear from 250 Hz through 750 Hz. Immittance measures revealed a Type A tympanogram in the right ear, indicating normal middle ear function. Results for the left ear revealed a Type A tympanogram, indicating normal middle ear function in that ear. These results were discussed in detail with the patient and all pertinent questions were answered. Recommendations: 1) ENT consult. 2) Hearing evaluation per medical recommendation, annually, or if a change in hearing is suspected. 3) Amplification (RT) pending medical clearance/interest. Kwame Pittman. [facility]-A Clinical Cement Tester Assistant [facility]-Department of Otolaryngology/Audiology [place] for [facility] [address] [place] [address]. ([facility]) [place] [address] [place] Escalante [facility] AUDIOLOGY SERVICES O RDERABLES * DE DRAIN/INJECT LARGE JOINT/BURSA (02/28/2022 10:07 AM CDT) Edwin Mcneill MD - 02/28/2022 10:07 AM CDT Edwin Maxwell MD 02/28/2022 11:57 AM Under sterile conditions using alcohol prep the right elbow was injected with a no touch technique through a lateral portal with a mixture of 1 mL 9 mg Celestone (6 mg/cc) and 2 mL of 1% Lidocaine. The patient tolerated the procedure well. No complications occurred. A bandaid was applied. The post-injection instructions were given and all questions were answered. Edwin Maxwell MD PROCEDURE/MINOR SURG ICAL ORDERABLES * DE DRAIN/INJECT LARGE JOINT/BURSA (02/28/2022 10:07 AM CDT) Edwin Mcneill MD - 02/28/2022 10:07 AM CDT Edwin Maxwell MD 02/28/2022 11:57 AM Under sterile conditions using alcohol prep the left shoulder was injected using a mixture of 2 mL 9 mg Celestone (6 mg/cc) and 3 mL of 1% Lidocaine through a posterior approach with a 22g needle. The patient tolerated the procedure well. No complications occurred. A bandaid was applied. Appropriate post-injection instructions were given and questions answered. Edwin Maxwell MD PROCEDURE/MINOR SURG ICAL ORDERABLES * XR SHOULDER LEFT 2VW OR MORE (02/28/2022 8:37 AM CDT) Only the most recent of2 resultswithin the time period is included. Anatomical Region Laterality Modality Upper Extremity Radiographic Maxine ging 02/28/2022 8:47 AM CDT Impressions 02/28/2022 9:05 AM CDT IMPRESSION: Widened AC joint. > Interpreting Provider: Tomás Skinner MD on 02/28/2022 9:05 AM Narrative 02/28/2022 9:05 AM CDT PROCEDURE: XR SHOULDER LEFT 2VW OR MORE, DATE/TIME OF EXAM: 02/28/2022 8:37 AM, LOCATION [facility] INDICATION: M25.512: Pain in left shoulder ADDITIONAL CLINICAL INFORMATION: Ordering Provider Reason For Exam: Technologist Note: Additional: COMPARISON: None. FINDINGS: Four views of the left shoulder show widening of the acromioclavicular joint suggesting strain/sprain. The humeral head is seated in the glenoid. No fracture is present. Procedure Note Tomás Skinner MD - 02/28/2022 PROCEDURE: XR SHOULDER LEFT 2VW OR MORE, DATE/TIME OF EXAM: 28:37 AM, LOCATION [facility] INDICATION: M25.512: Pain in left shoulder ADDITIONAL CLINICAL INFORMATION: Ordering Provider Reason For Exam: Technologist Note: Additional: COMPARISON: None. FINDINGS: Four views of the left shoulder show widening of the acromioclavicular joint suggesting strain/sprain. The humeral head is seated in theglenoid. No fracture is present. IMPRESSION: Widened AC joint. > Interpreting Provider: Tomás Skinner MD on 02/28/2022 9:05 AM Edwin Maxwell MD DIAGNOSTIC IMAGING O RDERABLES * XR ELBOW RIGHT 3VW OR MORE (02/28/2022 8:36 AM CDT) Anatomical Region Laterality Modality Upper Extremity Radiographic Maxine ging 02/28/2022 8:48 AM CDT Impressions 02/28/2022 9:05 AM CDT IMPRESSION: No acute osseous abnormality. > Interpreting Provider: Tomás Skinner MD on 02/28/2022 9:05 AM Narrative 02/28/2022 9:05 AM CDT PROCEDURE: XR ELBOW RIGHT 3VW OR MORE, DATE/TIME OF EXAM: 02/28/2022 8:37 AM, LOCATION [facility] INDICATION: M25.521: Pain in right elbow ADDITIONAL CLINICAL INFORMATION: Ordering Provider Reason For Exam: Technologist Note: Additional: COMPARISON: None. FINDINGS: Three views of the right elbow show no displaced fracture, subluxation or dislocation. If symptoms persist, follow-up exam may be of further use to exclude an occult process. Procedure Note Tomás Skinner MD - 02/28/2022 PROCEDURE: XR ELBOW RIGHT 3VW OR MORE, DATE/TIME OF EXAM: :37 AM, LOCATION [facility] INDICATION: M25.521: Pain in right elbow ADDITIONAL CLINICAL INFORMATION: Ordering Provider Reason For Exam: Technologist Note: Additional: COMPARISON: None. FINDINGS: Three views of the right elbow show no displaced fracture, subluxationor dislocation. If symptoms persist, follow-up exam may be of further useto exclude an occult process. IMPRESSION: No acute osseous abnormality. > Interpreting Provider: Tomás Skinner MD on 02/28/2022 9:05 AM Edwin Maxwell MD DIAGNOSTIC IMAGING O RDERABLES * AUDIOLOGY/TYMPANOMETRY ORDER (02/09/2022 12:30 PM CDT) Narrative Everardo Chang, PhD - 02/09/2022 1:09 PM CDT Russell Jeronimo is a 56 year old male was seen for an assessment of their hearing. The patient reports difficulty hearing. There is a report of dizziness. There is a report of tinnitus. There is a report of otalgia. There is a report of noise exposure. There is not a history of hearing loss in the family. There is not a history of previous ear surgery. Results: Puretone air/bone conduction testing revealed a normal sloping to mild sensorineural hearing loss in the right ear and a normal sloping to moderate sensorineural hearing loss in the left ear. Speech Cell Cleaner Thresholds is in good agreement with pure tone average(see speech audiometry for details). Findings were reviewed and discussed with Russell Jeronimo following the hearing evaluation. Plan: 1. The risks and benefits of my recommendations, as well as other treatment options were discussed today. 2. I recommend that the patient follow up with their facility, ENT or PCP PRN. 3. Low sodium diet. Everardo Chang, Ph.D., ELIZABET., [facility]-A Associate Professor Of Forestry Director, Division of Audiology Department of Otolaryngology- Head & Neck Surgery [employer] [facility] Everardo Chang PhD AUDIOLOGY SERVICES O RDERABLES * CT TEMPORAL BONES WO CONTRAST (02/09/2022 12:13 PM CDT) Anatomical Region Laterality Modality Head Computed Tomogra phy 02/09/2022 1:17 PM CDT Impressions 02/09/2022 1:41 PM CDT IMPRESSION: 1. No findings to explain patient's symptoms. Unremarkable temporal bones. This report was electronically signed by ANEL HUDSON MD on 02/09/2022 1:41 PM . Narrative 02/09/2022 1:[address] TEMPORAL BONES WO CONTRAST DATE: 02/09/2022 12:13 PM EXAMINATION: Computed tomography (CT) of the temporal bones without contrast HISTORY: Dizziness ,Pulsatile tinnitus of both ears ,SNHL (sensory-neural hearing loss), asymmetrical TECHNIQUE: CT of the temporal bones was performed without contrast according to standard protocol. COMPARISON: MRI brain 12/09/2021 FINDINGS: On the right side, the external auditory canal and auricle appear normal. The mastoid air cells and the middle ear cavity including the middle ear ossicles appear normal. The bony labyrinth, internal auditory canal, and petrous apex appear normal. The carotid canal, jugular foramen, and course of the facial nerve appear normal. On the left side, the external auditory canal and auricle appear normal. The mastoid air cells and the middle ear cavity including the middle ear ossicles appear normal. The bony labyrinth, internal auditory canal, and petrous apex appear normal. The carotid canal, jugular foramen, and course of the facial nerve appear normal. The roof of the left superior semicircular canal is mildly thinned without evidence of definite dehiscence. No evidence of high riding jugular bulbs bilaterally. No sigmoid plate dehiscence or sigmoid diverticulum noted. The visualized portions of the skull base and sinuses appear normal. No soft tissue abnormality is identified. Mucosal thickening in the sphenoid and right maxillary sinus. Procedure Note Anel Hudson MD - 02/09/2022 CT TEMPORAL BONES WO CONTRAST DATE: 02/09/2022 12:13 PM EXAMINATION: Computed tomography (CT) of the temporal bones without contrast HISTORY: Dizziness ,Pulsatile tinnitus of both ears ,SNHL(sensory-neural hearing loss), asymmetrical TECHNIQUE: CT of the temporal bones was performed without contrast according to standard protocol. COMPARISON: MRI brain 12/09/2021 FINDINGS: On the right side, the external auditory canal and auricle appearnormal. The mastoid air cells and the middle ear cavity including the middle ear ossicles appear normal. The bony labyrinth, internal auditory canal, and petrous apex appear normal. The carotid canal, jugular foramen, andcourse of the facial nerve appear normal. On the left side, the external auditory canal and auricle appear normal. The mastoid air cells and the middle ear cavity including the middle ear ossicles appear normal. The bony labyrinth, internal auditory canal, and petrous apex appear normal. The carotid canal, jugular foramen, andcourse of the facial nerve appear normal. The roof of the left superior semicircular canal is mildly thinned without evidence of definite dehiscence. No evidence of high riding jugular bulbs bilaterally. No sigmoid plate dehiscence or sigmoid diverticulum noted. The visualized portions of the skull base and sinuses appear normal. No soft tissue abnormality is identified. Mucosal thickening in thesphenoid and right maxillary sinus. IMPRESSION: 1. No findings to explain patient's symptoms. Unremarkable temporalbones. This report was electronically signed by ANEL HUDSON MD on 02/09/2022 1:41 PM . Danny Monreal BRINE SUPERVISOR-REDUCING MACHINE OPERATOR CT ORDERAB LES * CULTURE URINE (04/23/2014 8:36 AM CDT) Culture Urine No Growth of >100 CFU/ml after 48 Hours [facility] Urine specimen (specimen) URINE SPECIMEN OBTAINED BY CLEAN CATCH PROCEDURE / Unknown 04/23/2014 8:36 AM CDT 04/24/2014 2:42 PM CDT Narrative [facility] - 04/26/2014 9:16 AM CDT Sierran#[id number] Tereso Loc/Rm/Bed: LAB// CLN CATCH U Historical Provider LAB - MICROBIOLOG Y ORDERABLES [facility] [address] [place] [address] * (ABNORMAL) CBC W AUTO DIFFERENTIAL (05/15/2013 10:56 AM CDT) Only the most recent of10 resultswithin the time period is included. WBC 9.0 3.8 - 10.8 Thousand/u L [facility] ([facility]) RBC 5.39 4.20 - 5.80 Million/uL [facility] Hemoglobin 17.0 13.2 - 17.1 g/dL [facility]) Hematocrit 50.7(H) 38.5 - 50.0 % [facility] ([facility]) MCV 93.9 80.0 - 100.0 fL [facility] ([facility]) MCH 31.5 27.0 - 33.0 pg [facility] MCHC 33.5 32.0 - 36.0 g/dL [facility] ([facility]) RDW 13.6 11.0 - 15.0 % [facility]) Platelet 180 140 - 400 Thousand/u L [facility] ([facility]) Neutrophils Absolute 6021 1500 - 7800 cells/uL [facility] ([facility] Lymphocyte Absolute 1989 850 - 3900 cells/uL [facility] Monocytes Absolute 819 200 - 950 cells/uL [facility] Eosinophils Absolute 126 15 - 500 cells/uL [facility] ([facility]) Basophils Absolute 45 0 - 200 cells/uL [facility]) Neutrophils % 66.9 % [facility] Lymphocytes % 22.1 % [facility] Monocytes % 9.1 % [facility] Eosinophils % 1.4 % [facility] Basophils % 0.5 % [facility]) Comment: Test Performed at: [facility] [id number] [place] [id number] JOSÉ MIGUEL PARKER DO,MPH Venous blood specimen (specimen) 05/15/2013 10:56 AM CDT 05/15/2013 10:57 AM CDT Peggy Hoyt MD LAB - HEMATOLOGY O RDERABLES [facility] ([facility]) * COMPREHENSIVE METABOLIC PANEL (05/15/2013 10:56 AM CDT) Only the most recent of5 resultswithin the time period is included. Glucose 77 65 - 99 mg/dL [facility] ([facility]) Comment: Fasting reference interval BUN 22 7 - 25 mg/dL [facility] ([facility]) Creatinine 0.92 0.60 - 1.35 mg/dL [facility] ([facility]) eGFR non- 99 > OR = 60 mL/min/1. 73m2 [facility] ([facility]) eGFR 114 > OR = 60 mL/min/1. 73m2 [facility] ([facility]) BUN/Creatinine Ratio NOT APPLICABLE 6 - 22 (calc) [facility] ([facility]) Sodium 138 135 - 146 mmol/L [facility] ([facility]) Potassium 4.1 3.5 - 5.3 mmol/L [facility] ([facility]) Chloride 103 98 - 110 mmol/L [facility] ([facility]) CO2 25 19 - 30 mmol/L [facility] ([facility]) Calcium 9.4 8.6 - 10.3 mg/dL [facility] ([facility]) Protein Total 6.9 6.1 - 8.1 g/dL [facility] ([facility]) Albumin 4.5 3.6 - 5.1 g/dL [facility] ([facility]) Globulin 2.4 1.9 - 3.7 g/dL (calc) [facility] ([facility]) Albumin/Globuli n Ratio 1.9 1.0 - 2.5 (calc) [facility] ([facility]) Bilirubin Total 0.5 0.2 - 1.2 mg/dL [facility] ([facility]) Alkaline Phosphatase 60 40 - 115 U/L [facility] ([facility]) AST 24 10 - 40 U/L [facility] ([facility]) ALT 40 9 - 46 U/L [facility] ([facility]) Comment: Test Performed at: [facility] [id number] [place] [id number] JOSÉ MIGUEL PARKER DO,MPH Serum 05/15/2013 10:5 6 AM CDT 05/15/2013 10:57 AM CDT Peggy Hoyt MD LAB - CHEMISTRY OR DERABLES [facility] ([facility]) * XR KNEE RIGHT 3VW (03/04/2013 3:40 PM CDT) Anatomical Region Laterality Modality Lower Extremity Other Impressions 03/12/2013 2:43 PM CDT Impression: No acute osseous abnormality or evidence of arthritis involving the knee. This report was dictated by Tonia Georges M.D. I, Dr. Amari ELDER M.D. have personally reviewed and interpreted this examination/study. This report was electronically signed by Amari ELDER M.D. on 03/12/2013 2:43 PM . Narrative 03/12/2013 2:43 PM CDT Exam: XR KNEE RIGHT 3 VW Date: 03/04/2013 History: knee pain Findings: There is no acute fracture or dislocation of the left knee. The joint spaces are preserved. Adjacent soft tissues are normal. Procedure Note Lia Elder MD - 10/21/2017 Exam: XR KNEE RIGHT 3 VW Date: 03/04/2013 History: knee pain Findings: There is no acute fracture or dislocation of the left knee. Thejoint spaces are preserved. Adjacent soft tissues are normal. IMPRESSION Impression: No acute osseous abnormality or evidence of arthritisinvolving the knee. This report was dictated by Tonia Georges M.D. I, Dr. Amari ELDER M.D. have personally reviewed and interpreted thisexamination/study. This report was electronically signed by Amari ELDER M.D. on03/12/2013 2:43 PM . José Miguel Calderon III, MD DIAGNOSTIC IM AGING ORDERABLES * XR KNEE LEFT 3VW (03/04/2013 3:40 PM CDT) Anatomical Region Laterality Modality Lower Extremity Other Impressions 03/12/2013 2:44 PM CDT Impression: No acute osseous abnormality or evidence of arthritis involving the left knee. This report was dictated by Tonia Georges M.D. I, Dr. Amari ELDER M.D. have personally reviewed and interpreted this examination/study. This report was electronically signed by Amari ELDER M.D. on 03/12/2013 2:44 PM . Narrative 03/12/2013 2:44 PM CDT Exam: XR KNEE LEFT 3 VW Date: 03/04/2013 History: Knee pain Findings: There is no acute fracture or dislocation involving the knee. The joint spaces are preserved. Adjacent soft tissues are normal. Procedure Note Lia Elder MD - 10/21/2017 Exam: XR KNEE LEFT 3 VW Date: 03/04/2013 History: Knee pain Findings: There is no acute fracture or dislocation involving the knee.The joint spaces are preserved. Adjacent soft tissues are normal. IMPRESSION Impression: No acute osseous abnormality or evidence of arthritisinvolving the left knee. This report was dictated by Toina Georges M.D. Dr. Amari Chiu M.D. have personally reviewed and interpreted thisexamination/study. This report was electronically signed by Amari ELDER M.D. on03/12/2013 2:44 PM . José Miguel Calderon III, MD DIAGNOSTIC IM AGING ORDERABLES * XR LUMBAR SPINE 2 OR 3VW (02/11/2013 2:35 PM CDT) Anatomical Region Laterality Modality Spine Other Impressions 02/13/2013 11:20 AM CDT Impression: 1. No acute fracture or subluxation. 2. Mild degenerative disc disease of L5-S1. 3. Mild facet osteoarthritis in the lower lumbar spine. This report has been dictated by Arcenio Jimenez M.D. (Resident). Dr. MARY Chiu M.D. have personally reviewed and interpreted this examination/study. This report was electronically signed by MARY SHI M.D. on 02/13/2013 11:20 AM . Narrative 02/13/2013 11:20 AM CDT Exam: Lumbar spine, 2 views Exam Date: 02/11/2013 History: Low back pain Comparison: None available Findings: S1 is lumbarized. There is a vestigial disc at S1-S2. Bony alignment is normal. There is mild intervertebral disc disease at L5-S1. The vertebral body heights and intervertebral disc spaces are otherwise preserved. No acute fracture or subluxation is present. Minimal marginal osteophytes are present. Facet hypertrophy is seen in the lower lumbar spine. Procedure Note Mary Shi MD - 10/21/2017 Exam: Lumbar spine, 2 views Exam Date: 02/11/2013 History: Low back pain Comparison: None available Findings: S1 is lumbarized. There is a vestigial disc at S1-S2. Bony alignment isnormal. There is mild intervertebral disc disease at L5-S1. The vertebralbody heights and intervertebral disc spaces are otherwise preserved. Noacute fracture or subluxation is present. Minimal marginal osteophytes are present. Facet hypertrophy isseen in the lower lumbar spine. IMPRESSION Impression: 1. No acute fracture or subluxation. 2. Mild degenerative disc disease of L5-S1. 3. Mild facet osteoarthritis in the lower lumbar spine. This report has been dictated by Arcenio Jimenez M.D. (Resident). Dr. MARY Chiu M.D. have personally reviewed and interpreted thisexamination/study. This report was electronically signed by MARY SHI M.D. on 02/13/201311:20 AM . José Miguel Calderon III, MD DIAGNOSTIC IM AGING ORDERABLES * MRI SHOULDER LEFT WO CONTRAST (10/25/2012 8:48 AM CDT) Anatomical Region Laterality Modality Upper Extremity Other Impressions 10/28/2012 4:14 PM CDT IMPRESSION: 1. Extensive low-grade partial thickness tears of the supraspinatus and infraspinatus tendons as described above. 2. Chronic appearing grade II acromioclavicular joint sprain with residual joint space widening. No acute swelling. Report dictated by Papo Brenner MD. Dr. KAVON Chiu M.D. have personally reviewed and interpreted this examination/study. This report was electronically signed by KAVON SELF M.D. on 10/28/2012 4:14 PM . Narrative 10/28/2012 4:14 PM CDT MRI LEFT SHOULDER CLINICAL: 47 year-old female with left shoulder pain and possible rotator cuff injury. TECHNIQUE: Multiple fluid sensitive and fat sensitive sequences were obtained of the left shoulder in all 3 orthogonal planes without gadolinium. Comparison: Prior left shoulder radiographs from October 16, 2012. FINDINGS: There are multifocal low-grade partial-thickness tears involving both the supraspinatus and infraspinatus tendons. The borders of the supraspinatus and infraspinatus tears are not well delineated therefore, arrows were placed in the region of the signal abnormality, (sagittal series 9 image 12, 14, 9) as well as (coronal series 5 image 14, 15, 12). There is early focal muscular atrophy with fatty infiltration of the more distal supraspinatus tendon fibers, (sagittal series 7, images 16-18). There are mild signal changes in the adjacent subacromial and subdeltoid bursa. Normal subscapularis and teres minor musculotendinous complexes, without tendinosis, surface fraying or focal tear. Normal long biceps tendon properly located within the bicipital groove without subluxation, attenuation or tearing. Normal intracapsular segment of the biceps tendon with normal biceps labral anchor. There is red marrow reconversion. No other acute cortical signal abnormalities are demonstrated. There are chronic morphologic and signal changes of the labrum without evidence of acute labral injury. Correlating with the prior radiographs, there is widening of the acromioclavicular joint measuring up to 1.2 cm. There is a small joint effusion. There is no focal edema or soft tissue swelling. This most likely represents old grade 2 acromioclavicular joint sprain. No shoulder joint effusion. No intra-articular loose body. No findings to suggest synovitis. There are foci of susceptibility artifact in the anterior/superior shoulder evident on gradient echo sequences, (axial series 3, images 3-9). This may be secondary to prior arthroscopic instrumentation. Procedure Note Kavon Self MD - 10/21/2017 MRI LEFT SHOULDER CLINICAL: 47 year-old female with left shoulder pain and possible rotatorcuff injury. TECHNIQUE: Multiple fluid sensitive and fat sensitive sequences wereobtained of the left shoulder in all 3 orthogonal planes withoutgadolinium. Comparison: Prior left shoulder radiographs from October 16, 2012. FINDINGS: There are multifocal low-grade partial-thickness tears involving both thesupraspinatus and infraspinatus tendons. The borders of the supraspinatusand infraspinatus tears are not well delineated therefore, arrows wereplaced in the region of the signal abnormality, (sagittal series 9 image 12, 14, 9) as well as (coronalseries 5 image 14, 15, 12). There is early focal muscular atrophy withfatty infiltration of the more distal supraspinatus tendon fibers,(sagittal series 7, images 16-18). There are mild signal changes in the adjacent subacromial and subdeltoid bursa. Normal subscapularis and teres minor musculotendinous complexes, withouttendinosis, surface fraying or focal tear. Normal long biceps tendon properly located within the bicipital groovewithout subluxation, attenuation or tearing. Normal intracapsular segmentof the biceps tendon with normal biceps labral anchor. There is red marrow reconversion. No other acute cortical signalabnormalities are demonstrated. There are chronic morphologic and signal changes of the labrum withoutevidence of acute labral injury. Correlating with the prior radiographs, there is widening of theacromioclavicular joint measuring up to 1.2 cm. There is a small jointeffusion. There is no focal edema or soft tissue swelling. This mostlikely represents old grade 2 acromioclavicular joint sprain. No shoulder joint effusion. No intra-articular loose body. No findings tosuggest synovitis. There are foci of susceptibility artifact in the anterior/superiorshoulder evident on gradient echo sequences, (axial series 3, images 3-9).This may be secondary to prior arthroscopic instrumentation. IMPRESSION IMPRESSION: 1. Extensive low-grade partial thickness tears of the supraspinatus andinfraspinatus tendons as described above. 2. Chronic appearing grade II acromioclavicular joint sprain with residualjoint space widening. No acute swelling. Report dictated by Papo Brenner MD. I, Dr. KAVON SELF M.D. have personally reviewed and interpreted thisexamination/study. This report was electronically signed by KAVON SELF M.D. on 10/28/20124:14 PM . Sonu Rajput MD MR ORDERABLES * (ABNORMAL) HEPATIC FUNCTION PANEL (09/25/2012 4:33 PM NATIONAL SALES DIRECTOR) Only the most recent of5 resultswithin the time period is included. Protein Total 7.2 6.4 - 8.4 g/dL [facility]) Albumin 4.4 3.6 - 5.1 g/dL [facility] Globulin 2.8 2.2 - 4.0 g/dL (calc) [facility] Albumin/Globulin Ratio 1.6 0.9 - 2.3 (calc) [facility] Bilirubin Total 0.3 0.2 - 1.2 mg/dL [facility]) Bilirubin Direct 0.2 < OR = 0.2 mg/dL [facility]) Bilirubin Indirect 0.1(L) 0.2 - 1.2 mg/dL (calc) [facility] Alkaline Phosphatase 57 40 - 115 U/L [facility] AST 23 10 - 40 U/L [facility] ALT 37 9 - 60 U/L [facility]) Comment: Test Performed at: [employer] [address] [place] [address] JOSÉ MIGUEL PARKER DO,MPH Venous blood specimen (specimen) 09/25/2012 4:33 PM NATIONAL SALES DIRECTOR 09/25/2012 4:34 PM NATIONAL SALES DIRECTOR Peggy Hoyt MD LAB - CHEMISTRY OR DERABLES [facility] ([facility]) * (ABNORMAL) CULTURE AEROBIC (06/28/2012 1:00 PM NATIONAL SALES DIRECTOR) Only the most recent of5 resultswithin the time period is included. Culture SEE NOTE(A) [facility] ([facility]) Comment: CULTURE, AEROBIC BACTERIA MICRO NUMBER: [id number] TEST STATUS: FINAL SPECIMEN SOURCE: SKIN SPECIMEN QUALITY: ADEQUATE RESULT: Moderate growth of Methicillin resistant Staphylococcus aureus (MRSA) Scant growth of Group B Streptococcus isolated Beta-hemolytic Streptococci are predictably susceptible to penicillin and other beta-lactams. Susceptibility testing not routinely performed. MRSA INT ALLA AMOX/CLAVULANATE R NR AMP/SULBACTAM R NR CEFAZOLIN R NR CLINDAMYCIN R >4 ERYTHROMYCIN R >4 GENTAMICIN S <=1 LEVOFLOXACIN R >4 OXACILLIN R NR 1 TETRACYCLINE S <=1 TRIMETHOPRIM/SULFA R >2/38 VANCOMYCIN S 2 Legend: S = Susceptible I = Intermediate R = Resistant NS = Not Susceptible * = Not Tested NR = Not Reported nn = See Therapy Comments THERAPY COMMENTS Note 1: Oxacillin-resistant staphylococci are resistant to all currently available beta-lactam antimicrobial agents including penicillins, beta lactam/beta- lactamase inhibitor combinations, and cephems with staphylococcal indications, including Cefazolin. NO COLLECTION DATE RECEIVED. WE HAVE USED THE DATE THE SPECIMEN WAS RECEIVED BY THIS LABORATORY THE COLLECTION DATE. IF THIS IS INCORRECT, PLEASE CONTACT CLIENT SERVICES. PHONE NUMBER: [phone] Test Performed at: [facility] [address] [address] JOSÉ MIGUEL PARKER DO P Skin (tissue) specimen (specimen) (Unspecified) 06/28/2012 1:00 PM NATIONAL SALES DIRECTOR 06/26/2012 12:39 AM NATIONAL SALES DIRECTOR Narrative [facility] ([facility]) - 06/28/2012 1:00 PM NATIONAL SALES DIRECTOR Specimen Type->Skin Peggy Hoyt MD LAB - MICROBIOLOGY ORDERABLES Performing Organization Address [facility] de Phone Number [facility] ([facility]) * HEPATITIS SCREEN ACUTE (06/25/2012 4:12 PM NATIONAL SALES DIRECTOR) Hepatitis A Virus Antibody IgM NON-REACTI VE NON-REACT [facility] ([facility]) Comment: Test Performed at: [facility] [address] [address] [place] [address] JOSÉ MIGUEL PARKER DO,MPH Hepatitis B Virus Surface Antigen NON-REACTI VE NON-REACT [facility]) Hepatitis B Core Virus Antibody IgM NON-REACTI VE NON-REACT [facility]) Hepatitis C Antibody NON-REACTI VE NON-REACT [facility]) Signal/Cutoff 0.02 <1.00 [facility]) 06/25/2012 4:12 PM NATIONAL SALES DIRECTOR 06/25/2012 4:13 PM NATIONAL SALES DIRECTOR Peggy Hoyt MD LAB - CHEMISTRY OR DERABLES Performing Organization Address [facility] de Phone Number [facility] ([facility]) * CULTURE FUNGUS SKIN HAIR NAILS (11/27/2011 7:00 AM CDT) Culture Fungus SEE NOTE [facility] ([facility]) Comment: CULTURE, FUNGUS, SKIN, HAIR OR NAILS MICRO NUMBER: [id number] TEST STATUS: FINAL SPECIMEN SOURCE: NECK SPECIMEN QUALITY: ADEQUATE RESULT: No fungal growth at 4 Weeks NO COLLECTION DATE RECEIVED. WE HAVE USED THE DATE THE SPECIMEN WAS RECEIVED BY THIS LABORATORY THE COLLECTION DATE. IF THIS IS INCORRECT, PLEASE CONTACT CLIENT SERVICES. PHONE NUMBER: [phone] Test Performed at: [facility] [address] [address] JOSÉ MIGUEL PARKER DO ENTIRE NECK / Unknown 11/27/2011 7:00 AM CDT 11/02/2011 11:53 PM CDT Narrative [facility]) - 11/27/2011 7:00 AM CDT Preferred Lab:->[facility] Ed Farmer MD LAB - MICROBIOLOGY O RDERABLES [facility] ([facility]) Care Teams Leather Softener Relationship Specialty Start Date End Date Vanessa Stacy MD [address] [facility] [address] [place] [phone] PCP - General 08/16/22
--- OUTSIDE RECORDS SUMMARY | 2024-09-24 16:14 | XMS_ITS | Referral Summary ---
Author Organization [facility] Address [address] [place] [address] Care Team Providers Care Clay Transporter Name Role Phone Vanessa Stacy MD Primary Care Provider [phone] Source Comments [facility],non-owned Affiliates and Associated Physician Practices is amultiple site organization consisting of ambulatory clinics and hospital sitesin [place], [place], [place] and [place]. This disclosure is being madepursuant to the Care Everywhere program and may not contain all information available regarding this patient. Last updated 18.[facility] Encounters Date Type Department Care Team Description 09/04/2024 Travel 09/04/2024 2:00 PM COMPOUND FINISHER Office Visit [facility] - ENT [address] [place] [phone] Marshall Morin MD Meniere's disease of right ear (Primary Dx); Migraine variant; Dizziness; Vestibular migraine; Sensorineural hearing loss (SNHL) of right ear with restricted hearing of left ear 07/03/2024 Travel 07/03/2024 4:00 PM COMPOUND FINISHER Office Visit [facility] - ENT [address] [place] [phone] Marshall Morin MD Meniere's disease of right ear (Primary Dx); Migraine variant; Dizziness; Sensorineural hearing loss (SNHL) of right ear with restricted hearing of left ear; Vestibular migraine from Last 3 Months Allergies Active Allergy Reactions Criticality Noted Date Comments Bacitracin Rash High 11/02/2011 Cetyl Dimethicone Urticaria Medium 07/26/2015 Codeine Unknown 11/12/2000 Dimethicone Urticaria High 07/26/2015 Keflex Rash High 11/02/2011 Ketorolac Rash Medium 09/10/2020 Testosterone Rash Medium 11/10/2004 Medications * Be aware that medications may not be up to date on this document. Alwaysverify current medications with the patient. Medication Sig Dispensed Refills Start Date End Date Status aspirin EC (ECOTRIN) 81 MG tablet Take 1 (one) tablet by mouth once daily 08/02/2020 Active cyclobenzaprine (FLEXERIL) 10 MG tablet Take 1 (one) tablet by mouth once daily Active guaiFENesin 400 MG tablet Take 1 (one) tablet by mouth as needed 04/11/2021 Active LORazepam (ATIVAN) 1 MG tablet Take 1 (one) tablet by mouth once daily 09/14/2021 Active meclizine (ANTIVERT) 25 MG tablet Take 1 (one) tablet by mouth 3 times daily as needed 11/24/2021 Active traZODone (DESYREL) 100 MG tablet Take 1 (one) tablet by mouth as needed Active atorvastatin (Lipitor) 20 MG tablet Take 1 (one) tablet by mouth at bedtime 10/05/2021 Active ondansetron (Zofran) 8 MG tablet Take 1 (one) tablet by mouth every 6 hours as needed for Nausea/Vomiting Active metFORMIN (Glucophage) 500 MG tablet Take 1 (one) tablet by mouth once daily Active Jardiance 25 MG tablet Take 1 (one) tablet by mouth once daily 12/21/2023 Active triamterene-hydroC HLOROthiazide (Maxzide-25) 37.5-25 MG tablet Take 1 (one) tablet by mouth once daily 12/23/2023 Active dicyclomine (Bentyl) 10 MG capsule Take 1 (one) capsule by mouth 4 times daily Active diclofenac sodium EC (Voltaren) 50 MG tablet Take 1 (one) tablet by mouth 2 times daily 11/15/2023 Active vilazodone (Viibryd) 10 MG tablet Take 1 (one) tablet by mouth once daily 02/12/2024 Active lisinopril (Prinivil; Zestril) 10 MG tablet Take 1 (one) tablet by mouth once daily 01/23/2024 Active nortriptyline (Pamelor) 50 MG capsule Take 1 (one) capsule by mouth once daily 06/16/2023 Active triamcinolone acetonide (Kenalog) 0.5 % cream Apply to affected area as needed 11/02/2023 Active busPIRone (Buspar) 10 MG tablet Take 1 (one) tablet by mouth 3 times daily 03/26/2024 03/26/2025 Active testosterone 2 mg 2 mg capsule Take 1 (one) capsule by mouth once daily Active testosterone 7.5 mg/0.1ml 7.5MG/0.1ML injection Inject 7.5 mg into muscle every 7 days Active nebivolol (Bystolic) 20 MG tablet Take 1 (one) tablet by mouth once daily 06/25/2024 Active Rybelsus 7 MG tablet Take 1 (one) tablet by mouth daily before breakfast 06/02/2024 Active doxycycline monohydrate 100 MG tablet Take 1 (one) tablet by mouth 2 times daily FOR 7 DAYS 07/26/2024 Active montelukast (Singulair) 10 MG tablet Take 1 (one) tablet by mouth once daily 08/22/2024 Active tamsulosin (Flomax) 0.4 MG capsule Take 1 (one) capsule by mouth once daily 09/03/2024 Active nebivolol (BYSTOLIC) 10 MG tablet Take 1 (one) tablet by mouth once daily 09/04/2024 Discontinued (List Clean-Up) semaglutide (Rybelsus) 3 MG tablet Take 3 mg by mouth once daily 03/26/2024 09/04/2024 Discontinue d (List Clean-Up) amoxicillin-clavul anate (Augmentin) 875-125 MG tablet Take 1 (one) tablet by mouth every 12 hours 03/20/2024 09/04/2024 Discontinued (List Clean-Up) Hospital, Clinic, or Other Facility Administered Medication Ordered Dose Route Frequency Start Date End Date Status dexAMETHasone (Decadron) injection 10 mgIndications:Meniere's disease of right ear 10 mg IV ONCE 09/04/2024 09/04/2024 Ende d Active Problems Problem Noted Date Diagnosed Date Degeneration of cervical intervertebral disc 03/2022 Fear of injections and transfusions 02/28/2022 Lumbosacral spondylosis without myelopathy 02/28 Abnormal sexual function 02/28/2022 Overview (02/28/2022): [place] I: 300.04 Dysthymic Disorder [place] II: No Diagnosis [place] III: HTN [place] IV: chronic marital discord [place] V; GAF: 68 Arthropathy of knee 02/28/2022 Behavior problem 02/28/2022 Benign essential hypertension 02/28/2022 Cervicalgia 02/28/2022 Chronic low back pain 02/28/2022 Chronic sinusitis 02/28/2022 Overview (02/28/2022): Pt to refill his flonase Depression 02/28/2022 Hypogonadism 02/28/2022 Marital problem 02/28/2022 Pain in joint, lower leg 02/28/2022 Partner relational problem 02/28/2022 Patellofemoral syndrome 02/28/2022 Postoperative care for cataract 02/28/2022 Overview (02/28/2022): L shoulder subacromial decompression with distal clavicle excision 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 02/28/2022 Secondary localized osteoarthrosis of shoulder r egion 02/28/2022 Overview (02/28/2022): Left AC joint osteoarthritis Testicular hypofunction 02/28/2022 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 Melanocytic nevus of skin 04/01/2021 Pain in right knee 04/01/2021 Decreased testosterone level 08/02/2020 Hyperchloremia 08/02/2020 Sleep apnea 08/02/2020 Type 2 diabetes mellitus 08/02/2020 Erectile dysfunction due to diseases classified elsewhere 02/06/2020 Overview (02/28/2022): Added automatically from request for surgery [id number] Hypercholesteremia 04/25/2018 Overview (02/28/2022): Last Assessment & Plan: Lipids are mildly elevated. Continue diet and exercise. Consider statin therapy. Precordial pain 04/25/2018 Overview (02/28/2022): Last Assessment & Plan: The patient has [...] advised him to diet and exercise regularly. Irritable bowel syndrome 09/28/2016 Hypertension 04/30/2014 Overview (02/28/2022): Hypertension Last Assessment & Plan: Blood pressure is well controlled. As above, I recommended he stop hydrochlorothiazide in view of his lightheadedness. I asked him to monitor his blood pressure at home, and to report if elevated off hydrochlorothiazide. Pain in left shoulder 10/16/2012 Dermatitis 01/31/2012 Hand eczema 01/31/2012 Venous insufficiency (chronic) (peripheral) 05/0 09/2011 Cutaneous abscess 11/02/2011 Follicular disorder 11/02/2011 Irritant contact dermatitis 11/02/2011 Resolved Problems Problem Noted Date Diagnosed Date Resolved Date Acute pharyngitis 02/28/2022 03/14/2022 Pneumonia 02/28/2022 03/28/2022 Immunizations Name Administration Dates Next Due [employer] primary monoval ent 12+ yr 0.3mL Purple cap 09/28/2020,08/31/2020 FLU VACCINE QUAD IIV4 SPLIT 0.25 ML IM 05/23/2023 HEP A VACCINE, ADULT 06/04/1997 INFLUENZA VACCINE 07/23/2022,07/14/2014,06/30/20 14 INFLUENZA VACCINE, CELL CULT URE, QUADR. (FLUCELVAX QUADRIVALENT; 6MO+) (CCIIV4) 05/26/2022 INFLUENZA VACCINE, CELL CULT URE, TRIV. (FLUCELVAX TRIVALENT; 6MO+), 0.5 ML (CCIIV3) 05/29/2024,05/26/2022 INFLUENZA VACCINE, QUADR. (A FLURIA, FLUZONE QUADRIVALENT; 6MO+) (IIV4) 06/12/2005,08/04/2004 INFLUENZA VACCINE, QUADR. (F LUZONE; FLULAVAL; FLUARIX; AFLURIA QUADRIVALENT; 6MO+), 0.5 ML (IIV4) 05/25/2023,04/01/2021,05/04/2020,2019 MODERNA SARS-COV-2 COVID-19 VACCINE 0.25ML 11/30/2021,06/13/2021 Measles & Rubella 10/04/1983 PNEUMOCOCCAL PCV20 CONJ VAC IM 10/31/2022 PNEUMOCOCCAL PPSV23 12/22/2019,09/04/2019 POLIO OPV 12/10/1984 TDAP (7yrs+) 07/23/2014 TDAP, HISTORIC VACCINE 02/26/2022,11/20/2014 Td (Adult), 2 Lf Tetanus Tox oid, Adsorbed, Pf 09/12/2003,05/15/1995 Zoster Hzv Vacc Recombinant Inj Im 02/27/2023, Social History Tobacco Use Types Packs/Day Years [...] Comments Blood Pressure 129/81 09/04/2024 1:45 PM COMPOUND FINISHER Pulse 101 09/04/2024 1:45 PM COMPOUND FINISHER Temperature 36.7 C (98 F) 03/04/2013 3:23 PM CDT Respiratory Rate 16 01/11/2022 2:08 PM CDT Oxygen Saturation 94% 09/04/2024 1:45 PM COMPOUND FINISHER Inhaled Oxygen Concentration - - Weight 100.8 kg (222 lb 3.2 oz) 09/04/2024 1:45 PM COMPOUND FINISHER Height 180.3 cm (5' 11 ) 09/04/2024 1:45 PM COMPOUND FINISHER Body Mass Index 30.99 09/04/2024 1:45 PM COMPOUND FINISHER Plan of Treatment Upcoming Encounters Date Type Department Care Team (Late st Contact Info) Description 12/11/2024 2:30 PM CDT Office Visit [facility] - ENT [address] [place] [address], [place] [address] Marshall Morin MD [facility] [place] [address] Medical Devices Implanted Type Area Clinical Trials Manager Device Identifier Shelf Expiration Date Model / Serial / Lot Ams 700 Penile Implant Other (Type not listed) Description:1.5T AND 3T COND ITIONAL FOR MRI Procedures Procedure Name Priority Date/Time Associated Diagnosis Comments ME LABYRINTHOTOMY Routine 09/04/2024 2:1 4 PM COMPOUND FINISHER Meniere's disease of right ear ME LABYRINTHOTOMY Routine 07/03/2024 4:2 9 PM COMPOUND FINISHER Meniere's disease of right ear CREATININE - POCT INTERFACED Routine 01/03/2024 4:51 PM CDT HEPATITIS SCREEN ACUTE Routine 2 4:12 PM COMPOUND FINISHER from Last 3 Months or Most Recently Relevant to Health Maintenance Results * ME LABYRINTHOTOMY (09/04/2024 2:14 PM COMPOUND FINISHER) Narrative Marshall Morin MD - 09/04/2024 2:14 PM COMPOUND FINISHER Marshall Morin MD 09/04/2024 2:26 PM Procedure: [...] Morin MD PROCEDURE/MINOR LOS GICAL ORDERABLES * ME LABYRINTHOTOMY (07/03/2024 4:29 PM COMPOUND FINISHER) Narrative Marshall Morin MD - 07/03/2024 4:29 PM COMPOUND FINISHER Marshall Morin MD 07/03/2024 4:36 PM Procedure: [...] Morin MD PROCEDURE/MINOR LOS GICAL ORDERABLES * (ABNORMAL) CREATININE - POCT INTERFACED (01/03/2024 4:51 PM CDT) Pathologist [facility] Creatinine POCT 1.13 0.30 - 1.30 mg/dL 01/03/2024 4:53 PM CDT [facility] eGFR 75(L) >=90 mL/min/1.7 3 m2 01/03/2024 4:53 PM CDT [facility] Blood BLOOD SPECIMEN / Unknown 01/03/2024 4:51 PM CDT 01/03/2024 4:53 PM CDT Marshall Morin MD LAB - POINT OF CARE ORDERABLES Performing Organization Address City/[facility]/ZIP Co de Phone Number [facility] [address] [place] [address], [facility] [phone] * HEPATITIS SCREEN ACUTE (06/25/2012 4:12 PM COMPOUND FINISHER) [facility] Hepatitis A Virus Antibody IgM NON-REACTI VE NON-REACT [facility] ([facility]) Comment: Test Performed at: [employer] [facility] [address] [place] [address] JOSÉ MIGUEL PARKER DO,MPH Hepatitis B Virus Surface Antigen NON-REACTI VE NON-REACT WILFREDO [facility]) Hepatitis B Core Virus Antibody IgM NON-REACTI VE NON-REACT [facility]IL[facility]EDO [facility]) Hepatitis C Antibody NON-REACTI VE NON-REACT [facility]) Signal/Cutoff 0.02 <1.00 [facility] ([facility]) 06/25/2012 4:12 PM COMPOUND FINISHER 06/25/2012 4:13 PM COMPOUND FINISHER Peggy Hoyt MD LAB - CHEMISTRY OR DERABLES [facility] ([facility]) from Last 3 Months or Most Recently Relevant to Health Maintenance Care Teams Clay Transporter Relationship Specialty Start Date End Date Vanessa Stacy MD [address] [place] [address] PCP - General 08/16/22
--- OUTSIDE RECORDS SUMMARY | 2024-09-24 16:14 | XMS_ITS | Patient Health Record ---
Author Organization [facility] Address [address] [place] [address] Care Team Providers Care Inside Meter Tester Name Role Phone Craig Fitzpatrick Unavailable [phone] Hayes Jj Unavailable Unavailable Allergies Allergen (clinical drug ingredient) Drug/Non Drug Allergy documented on EMR Reaction Allergy Type Onset Date Status Keflex Unknown Drug Allergy Active Reason For Referral No Information Medications Medication SIG (Take, Route, Fr equency, Duration) Notes Start Date End Date Status Atorvastatin Calcium Active Nortriptyline HCl Ac tive metFORMIN HCl Active Bystolic Active clomiPHENE Citrate A ctive Lisinopril Active Problems Problem Type SNOMED Code ICD Code Onset Dates Problem Status W/U Status Risk Notes Problem Fear of medical treatment (976122261) Fear of injections and transfusions (F40.231) Active confirmed Problem Lumbosacral spondylosis without myelopathy (75407973) Spondylosis without myelopathy or radiculopathy, lumbar region (M47.816) Active confirmed Problem Degeneration of lumbar intervertebral disc (45087777) Other intervertebral disc degeneration, lumbar region (M51.36) Active confirmed Problem Degeneration of cervical intervertebral disc (95603574) Other cervical disc degeneration, mid-cervical region, unspecified level (M50.320) Active confirmed Plan Of Treatment No Information Insurance Providers Payer Name Payer Address Payer Phone Subscriber Number Group Number Insured Name Patient Relationship to Insured Coverage Start Date Coverage End Date [employer] [address] [place] [address] [id number] Russell Jeronimo Self - patient is the insured [employer] [employer] [address] [place] [address] [id number] Russell Jeronimo Self - patient is the insured Medical (General) History Medical History History ICD Code high blood pressure diabetes anemia kidney stones irritable bowel synrome pneumonia Surgical History Surgery Date(Month/Year) penile implant sinus cushed wrist appenectomy
--- OUTSIDE RECORDS SUMMARY | 2024-09-24 16:14 | XMS_ITS | Clinical Summary ---
Author Organization [facility] Address [address] [place] [address] Care Team Providers Care Coating Mixer Supervisor Name Role Phone Vanessa Stacy MD Primary Care Provider Source Comments [facility],non-owned Affiliates and Associated Physician Practices is amultiple site organization consisting of ambulatory clinics and hospital sitesin [place], [place], [place] and [place]. This disclosure is being madepursuant to the Care Everywhere program and may not contain all information available regarding this patient. Last updated 18.[facility] Allergies Active Allergy Reactions Criticality Noted Date [...] 02/28 Abnormal sexual function 02/28/2022 Overview (02/28/2022): [place] I: 300.04 Dysthymic Disorder [place] II: No Diagnosis [place] III: HTN [place] IV: chronic marital discord [place] V; GAF: 68 Arthropathy of knee 02/28/2022 [...] (02/28/2022): Added automatically from request for surgery [id number] Hypercholesteremia 04/25/2018 Overview (02/28/2022): Last Assessment & [...] Hand eczema 01/31/2012 Venous insufficiency (chronic) (peripheral) 05/09/2011 Cutaneous abscess 11/02/2011 Follicular disorder 11/02/2011 Irritant contact dermatitis 11/02/2011 Resolved Problems Problem Noted Date Diagnosed Date Resolved Date Acute pharyngitis 02/28/2022 03/14/2022 Pneumonia 02/28/2022 03/28/2022 Encounters Date Type Department Care Team Description 09/04/2024 2:00 PM BEHAVIORAL HEALTH COUNSELOR Office Visit [facility] - ENT [address] [place] [phone] Marshall Morin MD Meniere's disease of right ear (Primary Dx); Migraine variant; Dizziness; Vestibular migraine; Sensorineural hearing loss (SNHL) of right ear with restricted hearing of left ear 09/04/2024 Travel 07/03/2024 4:00 PM BEHAVIORAL HEALTH COUNSELOR Office Visit [facility] - ENT [address] [place] [phone] Marshall Morin MD Meniere's disease of right ear (Primary Dx); Migraine variant; Dizziness; Sensorineural hearing loss (SNHL) of right ear with restricted hearing of left ear; Vestibular migraine 07/03/2024 Travel from Last 3 Months Immunizations Name Administration Dates Next Due [email or web address] primary monoval ent 12+ yr 0.3mL Purple [...] Zoster Hzv Vacc Recombinant Inj Im 02/27/2023, Family History Medical History Relation Name Comments Cancer Mother breast Diabetes; unknown type Mother Cancer Sister breast Allergy (Severe) Neg Hx CVA Neg Hx Cancer - Breast Neg Hx Cancer - Skin, Melanoma Neg Hx Cancer - Skin, Non Melanoma Neg Hx Eczema Neg Hx Hemophilia Neg Hx Psoriasis Neg Hx Rashes/Skin Problems Neg Hx Relation Name Status Comments Mother Sister Social History Tobacco Use Types Packs/Day Years [...] Comments Blood Pressure 129/81 09/04/2024 1:45 PM BEHAVIORAL HEALTH COUNSELOR Pulse 101 09/04/2024 1:45 PM BEHAVIORAL HEALTH COUNSELOR Temperature 36.7 C (98 F) 03/04/2013 3:23 PM CDT Respiratory Rate 16 01/11/2022 2:08 PM CDT Oxygen Saturation 94% 09/04/2024 1:45 PM BEHAVIORAL HEALTH COUNSELOR Inhaled Oxygen Concentration - - Weight 100.8 kg (222 lb 3.2 oz) 09/04/2024 1:45 PM BEHAVIORAL HEALTH COUNSELOR Height 180.3 cm (5' 11 ) 09/04/2024 1:45 PM BEHAVIORAL HEALTH COUNSELOR Body Mass Index 30.99 09/04/2024 1:45 PM BEHAVIORAL HEALTH COUNSELOR Plan of Treatment Upcoming Encounters Date Type Department Care Team (Late st Contact Info) Description 12/11/2024 2:30 PM CDT Office Visit [facility] - ENT [address] [place] [phone] Marshall Morin MD [address] [place] [address] [place] [address] Health Maintenance Due Date Last Done Comments COLOGUARD (AGES 45-75) - COLON CA SCREENING [address] COLONOGRAPHY - COLON CA SCREENING 1965 FIT - COLON CA SCREENING 1965 FLEX SIG - COLON CA SCREENING 1965 HIV SCREENING 1980 HEPATITIS B VACCINE (1 of 3 - 19+ 3-dose series) 1984 DIABETES RETINOPATHY SCREENING 02/28/2022 DIABETES-FOOT EXAM WITH MONOFILAMENT 02/28/2022 COVID-19 VACCINE ( season) 2024 06/09/2022, 11/30/2021, 06/13/2021, Additional history exists DEPRESSION SCREENING 07/23/2024 DIABETES - URINE PROTEIN SCREENING 07/23/2024 01/24/2023 DIABETES-HGB A1C 01/23/2025 07/26/2024, , 09/20/2023, Additional history exists DIABETES-SERUM CREATININE 03/06/20252023, 03/06/2024, 03/06/2024, Additional history exists DTAP/TDAP/TD VACCINES (4 - Td or Tdap) 02/27/2032 02/26/2022, 11/20/2014, 07/23/2014, Additional history exists COLONOSCOPY - COLON CA SCREENING 03/02/2033 03/02/2023 Colorectal Cancer Screening 03/02/2033 HEPATITIS C SCREENING Completed 06/25/2012 PNEUMOCOCCAL VACCINE 50+ Completed 023, 12/22/2019, 09/04/2019 ZOSTER VACCINE Completed 02/27/2023, 10/24/2022 INFLUENZA VACCINE Completed 05/29/2024, , 05/23/2023, Additional history exists HIB VACCINE Aged Out No longer eligi ble based on patient's age to complete this topic HPV VACCINE Aged Out No longer eligi ble based on patient's age to complete this topic MENINGOCOCCAL (Group B) VACCINE Aged Out No longer eligible based on patient's age to complete this topic MENINGOCOCCAL VACCINE Aged Out No cha sidney eligible based on patient's age to complete this topic Medical Devices Implanted Type Area Biological Lab Technician Device Identifier Shelf Expiration Date Model / Serial / Lot Ams 700 Penile Implant Other (Type not listed) Description:1.5T AND 3T COND ITIONAL FOR MRI Procedures Procedure Name Priority Date/Time Associated Diagnosis Comments [place] LABYRINTHOTOMY Routine 09/04/2024 2:1 4 PM BEHAVIORAL HEALTH COUNSELOR Meniere's disease of right ear [place] LABYRINTHOTOMY Routine 07/03/2024 4:2 9 PM BEHAVIORAL HEALTH COUNSELOR Meniere's disease of right ear CREATININE - POCT INTERFACED Routine 01/03/2024 4:51 PM CDT HEPATITIS SCREEN ACUTE Routine 2 4:12 PM BEHAVIORAL HEALTH COUNSELOR from Last 3 Months or Most Recently Relevant to Health Maintenance Results * [place] LABYRINTHOTOMY (09/04/2024 2:14 PM BEHAVIORAL HEALTH COUNSELOR) Narrative Marshall Morin MD - 09/04/2024 2:14 PM BEHAVIORAL HEALTH COUNSELOR Marshall Morin MD 09/04/2024 2:26 PM Procedure: [...] Morin MD PROCEDURE/MINOR LOS GICAL ORDERABLES * [place] LABYRINTHOTOMY (07/03/2024 4:29 PM BEHAVIORAL HEALTH COUNSELOR) Narrative Marshall Morin MD - 07/03/2024 4:29 PM BEHAVIORAL HEALTH COUNSELOR Marshall Morin MD 07/03/2024 4:36 PM Procedure: [...] POCT INTERFACED (01/03/2024 4:51 PM CDT) Pathologist [facility] Creatinine POCT 1.13 0.30 - 1.30 mg/dL 01/03/2024 4:53 PM CDT [facility] eGFR 75(L) >=90 mL/min/1.7 3 m2 01/03/2024 4:53 PM CDT [facility] Blood BLOOD SPECIMEN / Unknown 01/03/2024 4:51 PM CDT 01/03/2024 4:53 PM CDT Marshall Morin MD LAB - POINT OF CARE ORDERABLES Performing Organization Address [facility]/ZIP Co de Phone Number [facility] [address] [place] [address], [facility] [phone] * HEPATITIS SCREEN ACUTE (06/25/2012 4:12 PM BEHAVIORAL HEALTH COUNSELOR) [facility] Hepatitis A Virus Antibody IgM NON-REACTI VE NON-REACT [facility] ([facility]) Comment: Test Performed at: [facility] [address] [place] [address] JOSÉ MIGUEL PARKER DO,MPH Hepatitis B Virus Surface Antigen NON-REACTI VE NON-REACT [facility] ([facility]) Hepatitis B Core Virus Antibody IgM NON-REACTI VE NON-REACT [facility] ([facility]) Hepatitis C Antibody NON-REACTI VE NON-REACT [facility] ([facility]) Signal/Cutoff 0.02 <1.00 [facility] ([facility]) 06/25/2012 4:12 PM BEHAVIORAL HEALTH COUNSELOR 06/25/2012 4:13 PM BEHAVIORAL HEALTH COUNSELOR Peggy Hoyt MD LAB - CHEMISTRY OR DERABLES [facility] ([facility]) from Last 3 Months or Most Recently Relevant to Health Maintenance Care Teams Coating Mixer Supervisor Relationship Specialty Start Date End Date Vanessa Stacy MD [address] [place] [address] PCP - General 08/16/22
--- OUTSIDE RECORDS SUMMARY | 2024-09-24 16:14 | XMS_ITS ---
Author Organization [facility], Address [address] [facility] [address] [place] [address] Care Team Providers Care Shade Maker Name Role Phone Rena Melara Primary Care Provider Shmuel Brambila Unavailable [phone] REASON FOR VISIT RT L2-3 Decompression Encounters Encounter Location Date Provider Diagnosis [facility] - Outpatient [address] [place] [address] 09/18/2024 Shmuel Vargas PLAN OF TREATMENT Next Appt Details Provider Name:Justo Cooley, 10/02/2024 08:30:00 AM, [address], [place], [address], Provider Name:Shmuel Vargas, 10/02/2024 08:30:00 AM, [address], [place], [address],
--- OUTSIDE RECORDS SUMMARY | 2024-09-24 16:14 | XMS_ITS ---
Author Organization [facility], Address [address] [place] [address] Care Team Providers Care Supervisor Research Shop Name Role Phone Rena Melara Primary Care Provider Shmuel Brambila Unavailable [phone] Justo Cooley Unavailable [phone] REASON FOR VISIT RT L2-3 Decompression Encounters Encounter Location Date Provider Diagnosis [facility] - Outpatient [address] [place] [address] 09/18/2024 Justo Cooley PLAN OF TREATMENT Next Appt Details Provider Name:Justo Cooley, 10/02/2024 08:30:00 AM, [address], [place], [address], Provider Name:Shmuel Vargas, 10/02/2024 08:30:00 AM, [address], [place], [address],
--- OUTSIDE RECORDS SUMMARY | 2024-09-24 16:14 | XMS_ITS | Clinical Summary ---
Author Organization [facility] Address [address] [place] [address] Care Team Providers Care Pupil Personnel Services Director Name Role Phone Unavailable Primary Care Provider Unavailabl e Allergies Active Allergy Reactions Criticality Noted Date Comments Bacitracin Rash,Unknown,Hives High 08/05/2004 Cephalexin Rash,Unknown,Hives High 08/05/2004 Reaction: RASH, Cetyl Dimethicone Hives High 07/26/2015 Codeine Unknown 11/12/2000 Dimethicone Hives High 07/26/2015 Ketorolac Rash,Other (See Comments) Medium 09/10/2020 after several days use Testosterone Rash Medium 11/10/2004 Medications aspirin (ECOTRIN EC) 81 mg Tablet, Delayed Release (E.C.) aspirin 81 mg tablet,delayed release Take 1 tablet every day by oral route. 08/02/19 21 Active atorvastatin (LIPITOR) 40 mg tablet 07/12/20 22 Active atorvastatin (LIPITOR) 20 mg tablet atorvastatin 20 mg tablet Take 1 tablet every day by oral route. 08/02/19 21 Active azelastine (ASTEPRO) 0.15 % (205.5 mcg) nasal spray azelastine 205.5 mcg (0.15 %) nasal spray USE 2 SPRAYS IN EACH NOSTRIL DAILY Active clomiPHENE citrate (CLOMID) 50 mg tablet TAKE ONE-HALF TABLET BY MOUTH ONCE A DAY 04/09/20 20 Active Clomid 50 mg tablet 07/11/20 22 Active clomiphene citrate (CLOMID ORAL) clomiphene citrate 25 mg po qAM 08/02/19 21 Active cyclobenzaprine (FLEXERIL) 10 mg tablet cyclobenzaprine 10 mg tablet Active diclofenac sodium (VOLTAREN) 75 mg Tablet, Delayed Release (E.C.) diclofenac sodium 75 mg tablet,delayed release TAKE 1 TABLET BY MOUTH TWICE DAILY NEEDED Active dicyclomine (BENTYL) 10 mg capsule 07/11/20 22 Active famotidine (PEPCID) 20 mg tablet famotidine 20 mg tablet TK 1 T PO D 05/17/20 20 Active guaiFENesin (HUMIBID) 400 mg Tablet 400 mg. 04/11/20 21 Active guaiFENesin (HUMIBID) 400 mg Tablet 05/04/20 22 Active ketorolac tromethamine (TORADOL) 10 mg tablet ketorolac 10 mg tablet 05/25/20 Active lisinopriL (PRINIVIL) 40 mg tablet 05/09/20 22 Active loratadine (CLARITIN) 10 mg tablet loratadine 10 mg tablet TK 1 T PO D 05/17/20 Active loratadine-pseud oephedrine (Claritin-D 12 Hour) 5-120 mg Extended Release 12 hour tablet Claritin-D 12 Hour 5 mg-120 mg tablet,extended release TAKE 1 TABLET BY MOUTH EVERY 12 HOURS Active LORazepam (ATIVAN) 1 mg tablet 09/14/19 22 Active meclizine (ANTIVERT) 25 mg tablet 11/25/19 22 Active metFORMIN (GLUCOPHAGE) 500 mg tablet Take 500 mg by mouth 2 times daily. Active metFORMIN (GLUCOPHAGE) 1,000 mg tablet 06/22/20 22 Active nebivoloL 10 mg tablet Bystolic 10 mg tablet Active Bystolic 10 mg Tablet 08/05/19 23 Active nortriptyline (PAMELOR) 10 mg capsule Take 30 mg by mouth. Active nortriptyline (PAMELOR) 50 mg capsule 07/11/20 22 Active nortriptyline HCl (PAMELOR ORAL) nortriptyline 30 mg po qhs 08/02/19 21 Active ondansetron (ZOFRAN ODT) 4 mg Tablet, Rapid Dissolve 09/14/19 22 Active traMADoL (ULTRAM) 50 mg tablet tramadol 50 mg tablet TAKE 1 TABLET BY MOUTH EVERY 6 TO 8 HOURS NEEDED Active traZODone (DESYREL) 100 mg tablet trazodone 100 mg tablet TAKE 1 TABLET BY MOUTH EVERY NIGHT AT BEDTIME NEEDED FOR INSOMNIA Activ e triamcinolone acetonide (KENALOG) 0.1 % Cream triamcinolone acetonide 0.1 % topical cream 05/17/20 20 Active triamterene-hydr oCHLOROthiazide (DYAZIDE) 37.5-25 mg capsule triamterene 37.5 mg-hydrochlorothiaz arvind 25 mg capsule TAKE 1 CAPSULE BY MOUTH EVERY DAY 05/25/20 Active triamterene-hydr oCHLOROthiazide (DYAZIDE) 37.5-25 mg capsule Take 1 Capsule by mouth daily. 05/26/20 22 Active Active Problems Problem Noted Date Diagnosed Date Acute pharyngitis 08/08/2022 Allergic rhinitis 08/08/2022 Overview (08/08/2022): Pt agreed to stop deconamine and start claritin. Deconamine for onset of symptoms only. Irritable bowel syndrome without diarrhea 2022 Arthropathy 08/08/2022 Pneumonia 08/08/2022 Sensorineural hearing loss, unilateral, right ear, with unrestricted hearing on the contralateral side 08/08/2022 Testicular hypofunction 08/08/2022 Type 2 diabetes mellitus without complications 0 08/08/2022 Abnormal sexual function 02/28/2022 Overview (08/08/2022): [place] I: 300.04 Dysthymic Disorder [place] II: No Diagnosis [place] III: HTN [place] IV: chronic marital discord [place] V; GAF: 68 Behavior problem 02/28/2022 Benign essential hypertension 02/28/2022 Cervicalgia 02/28/2022 Chronic low back pain 02/28/2022 Chronic sinusitis 02/28/2022 Overview (08/08/2022): Pt to refill his flonase Pt to refill his flonase Degeneration of cervical intervertebral disc 03/2022 Depression 02/28/2022 Fear of injections and transfusions 02/28/2022 Hypogonadism 02/28/2022 Lumbosacral spondylosis without myelopathy 02/28 Pain in joint, lower leg 02/28/2022 Patellofemoral syndrome 02/28/2022 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 02/28/2022 Secondary localized osteoarthrosis of shoulder r egion 02/28/2022 Overview (08/08/2022): Left AC joint osteoarthritis Left AC joint osteoarthritis 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 Melanocytic nevus of skin 04/01/2021 Decreased testosterone level 08/02/2020 Hyperchloremia 08/02/2020 Sleep apnea 08/02/2020 Erectile dysfunction due to diseases classified elsewhere 02/06/2020 Overview (08/08/2022): Added automatically from request for surgery [id number] Added automatically from request for surgery [id number] Hypercholesteremia 04/25/2018 Overview (08/08/2022): Last Assessment & Plan: Lipids are mildly elevated. Continue diet and exercise. Consider statin therapy. Last Assessment & Plan: Lipids are mildly elevated. Continue diet and exercise. Consider statin therapy. Precordial pain 04/25/2018 Overview (08/08/2022): Last Assessment & Plan: The patient has [...] advised him to diet and exercise regularly. Hypertension 04/30/2014 Overview (08/08/2022): Hypertension Last Assessment & Plan: Blood pressure [...] and to report if elevated off hydrochlorothiazide. Hand eczema 01/31/2012 Venous insufficiency (chronic) (peripheral) 09/2011 Irritant contact dermatitis 11/02/2011 Family History Medical History Relation Name Comments Cancer Mother Heart Disease Mother Hypertension Mother Relation Name Status Comments Mother Social History Tobacco Use Types Packs/Day Years Used Date Smoking Tobacco: Never Passive Smoke Exposure: Never Smokeless Tobacco: Never Tobacco Cessation:Counseling Given: Not Answered Alcohol Use Standard Drinks/Week Comments Yes 2 (1 standard drink = 0.6 oz pur e alcohol) WEEKLY Sex and Gender Information Value Date Recorded Sex Assigned at Not on file Legal Sex Male 8:07 AM CLAIMS ACCOUNT SPECIALIST Gender Identity Not on file Sexual Orientation Not on file Last Filed Vital Signs Vital Sign Reading Time Taken Comments Blood Pressure 120/60 08/08/2022 9:54 AM CLAIMS ACCOUNT SPECIALIST Pulse - - Temperature - - Respiratory Rate - - Oxygen Saturation - - Inhaled Oxygen Concentration - - Weight 99.3 kg (219 lb) 08/08/2022 9:54 AM CLAIMS ACCOUNT SPECIALIST Height 180.3 cm (5' 11 ) 08/08/2022 9:54 AM CLAIMS ACCOUNT SPECIALIST Body Mass Index 30.54 08/08/2022 9:54 AM CLAIMS ACCOUNT SPECIALIST Plan of Treatment Health Maintenance Due Date Last Done Comments DIABETES ANNUAL FOOT EXAM 1983 DIABETES ANNUAL RETINAL EXAM 1983 DIABETES MICROALBUMIN ANNUAL SCREEN 1983 LDL CHOLESTEROL ANNUAL 1983 HEPATITIS B VACCINES (1 of 3 - 19+ 3-dose series) 1984 COLORECTAL SCREENING 2010 Colorectal Cancer Screening 2010 FIT-DNA Q 3 years 2010 FIT/FOBT Q 1 year 2010 Flex Sig/CT Colonography Q 5 years 2010 DIABETES HBA1C Q 6 MONTHS 10/08/2022 04/10/2022 COVID-19 Vaccine (2023-2 5 season) 2024 11/30/2021, 06/13/2021, 09/28/2020, Additional history exists DTAP/TDAP/TD VACCINES (4 - T d or Tdap) 02/27/2032 02/26/2022, 11/20/2014, 07/23/2014 ZOSTER VACCINE Completed 02/27/2023, 10/24/2022 INFLUENZA VACCINE Completed 05/29/2024, , 05/23/2023, Additional history exists Insurance [facility] BLUE ACCESS/TRUE BLUE PPO [address] [place] [address]
--- OUTSIDE RECORDS SUMMARY | 2024-09-24 16:14 | XMS_ITS | Encounter Summary ---
Author Organization [facility] Healthcare Address [address] [place] [address] Care Team Providers Care Consulting Property Manager Name Role Phone Jose Manuel Chavarria MD Unavailable [phone] Rena Wakefield Primary Care Provider [phone] Reason for Visit * Reason Onset Date Comments Cough 09/10/2024 Congestion 09/10/2024 Headache 09/10/2024 Encounter Details Date Type Department Care Team (Late st Contact Info) Description 09/10/2024 Nurse Triage [facility] Family Medicine [address] [address] Rena Wakefield PA [address] [address] Social History Tobacco Use Types Packs/Day Years Used Date Smoking Tobacco: Never Smokeless Tobacco: Never Alcohol Use Standard Drinks/Week Comments Yes 0 [...] on file Legal Sex Male 12:20 AM FUEL TRUCK DRIVER Gender Identity Male 04/30/2020 1:34 PM CDT Sexual Orientation Straight 04/30/2020 1: 34 PM CDT documented as of this encounter Functional Status * Audit-C Score Answer Date of Assessment Author 3 09/10/2024 12:52 PM Sonam Wong MA * Question Answer Date of Assessment Author Q1: How often do you have a drink containing alcohol? 2-4 times a month 09/10/2024 12:52 PM Sonam Wong MA Q2: How many drinks containing alcohol do you have on a typical day when you are drinking? 3 or 4 09/10/2024 12:52 PM Sonam Wong MA Q3: How often do you have six or more drinks on one occasion? Never 09/10/2024 12:52 PM Sonam Wong MA documented as of this encounter Miscellaneous Notes * Telephone Encounter - Darion Campbell LPN - 09/10/2024 11:02 AM CST Spoke with pt, he states he is miserable and would like to see GE Chase, scheduled at 12:45pm. m TRUCK DRIVER * Telephone Encounter - Patsy Newton RN - 09/10/2024 8:05 AM FUEL TRUCK DRIVER Complaint: Productive persitent cough, dark phlegm, headache. Duration: 6 days Details: Already seen in , negative for viruses. Cough, dark phlegm, mild earache, stuffy sinuses, headache, getting worse. Keeping himself and awake at night. Was only prescribed Tessalon Perles. Is hoping for an antibiotic and/or a steroid. Denies sob, fever, GI symptoms. Nurse Triage Protocol Disposition: See in office today. Since he was already at he is hoping to not have to make another office visit. Asking for an antibiotic and/or steroid. Routing request for antibiotic and/or steroid to Rena Wakefield PA and clinical team for review andintervention. Russell Jeronimo is awaiting a call from the office, can be reached at [phone]. Allergies and preferred pharmacy verified and current. Preferred Pharmacy [id number] - [place], [place] - [address] [facility] [place] [address] Allergies as of 09/10/2024 - Reviewed 09/10/2024 Allergen Reaction Noted Bacitracin Rash and Hives 08/24/2004 Cephalexin Rash and Hives 08/05/2004 Dimethicone Urticaria 07/26/2015 Toradol [ketorolac] Rash 01/10/2022 Other Unknown 10/27/2005 Codeine Nausea & Vomiting 11/12/2000 Testosterone Other (See comments) 11/10/2004 Nursing care advice also provided. Encouraged to call back if there are further questions or concerns. Encouraged to call back if symptoms persist or worsen. Reason for Disposition SEVERE coughing spells (e.g., whooping sound after coughing, vomiting after coughing) Protocols used: [id number] TRUCK DRIVER * Telephone Encounter - Patsy Newton RN - 09/10/2024 8:01 AM FUEL TRUCK DRIVER Regarding: coughing since Sunday, discharging dark phlegm, constant headache ----- Message from Dalton Soler sent at 09/10/2024 8:01 AM FUEL TRUCK DRIVER ----- Symptom Based Call Chief Complaint(s): coughing since Sunday, discharging dark phlegm, constant headache Duration: ongoing for a few days What type of symptom(s) is the patient experiencing? Non-Emergent. Is this a new or reoccurring symptom(s)? New What have you tried to help your symptom(s)? Caller states he has been taking OTC sharona seltzer plus, using albuterol Why was appointment not scheduled? Appointment availability did not meet the patient's need. Additional Comments: Caller requesting an appointment, please advise of next step. Does message need to be routed? Yes-Action Needed TRUCK DRIVER documented in this encounter Plan of Treatment Not on file documented as of this encounter Visit Diagnoses Not on filedocumented in this encounter Care Teams Consulting Property Manager Relationship Specialty Start Date End Date Rena Wakefield PA [address] [place] [address] PCP - General Critical Care Med 08/08/22 [place] [address] [address] [address] [place] [address] Consulting Physician Urology 05/04/20 documented as of this encounter
--- OUTSIDE RECORDS SUMMARY | 2024-09-24 16:15 | XMS_ITS ---
Author Organization [facility] Address [address] [address] Care Team Providers Care Commercial Litigation Associate Name Role Phone Kelton Rena Primary Care Provider Shmuel Brambila Unavailable [phone] REASON FOR VISIT Surgery Encounters Encounter Location Date Provider Diagnosis [facility], [address] [address] 09/16/2024 Shmuel Vargas PLAN OF TREATMENT Next Appt Details Provider Name:Justo Cooley, 10/02/2024 08:30:00 AM, [address], [place], [address], Provider Name:Shmuel Vargas, 10/02/2024 08:30:00 AM, [address], [place], [address],
== END 2024-09-24 14:31 | disposition home or self-care (01) ==
PROVIDERS: PCP Physician Assistant; Visit Provider Podiatrist Foot & Ankle Surgery
DX: R60.0 Localized edema (principal)
CPT/HCPCS: 93971

== ENCOUNTER 2024-10-04 18:26 | Emergency (ER) | payer BC, OTHER, SELFPAY ==
[2024-10-04] VITALS (18 sets, daily range): BP systolic 124–141; BP diastolic 68–86; PULSE 110–145; RESP 14–42; TEMP 37.2; O2SAT 89–99
--- NOTE | ~2024-10-04 | XR_ITS ---
EXAMINATION: XR chest 2V Exam Date/Time: 10/04/2024 19:21 CDT HISTORY: CHEST PAIN,N/V,TACHYCARDIA Comparison: 09/09/2023. RESULT: Lines, tubes, and devices: None. Lungs and pleura: Clear. Cardiomediastinal silhouette: Stable. Other: No acute osseous or upper abdominal finding. Hypoplastic left first rib. IMPRESSION: No acute cardiopulmonary process. Reviewed, dictated and finalized at location K.
--- NOTE | ~2024-10-04 | CT_ITS ---
EXAMINATION: CTA chest PE protocol DATE: 10/04/2024 21:11 INDICATION: CP/SOB (now resolved), tachycardia; +dimer TECHNIQUE: Computed tomography angiography (CTA) of the chest was performed with 100 mL Omnipaque-350 intravenous contrast timed to evaluate the pulmonary arteries. Coronal maximum intensity projection 3D-reconstructions were created by the technologist. The dose-length product (DLP) was 708.02 mGy-cm. Automated exposure control and iterative reconstruction technique were employed. COMPARISON: None. FINDINGS: Lung parenchyma and airways: Clear. Pleura: Unremarkable. Thoracic inlet, axillae and chest wall: Unremarkable. Thoracic aorta: No significant dilation. No dissection. Mild arch calcification. Mediastinum: Normal. Heart and pericardium: Normal. Coronary artery calcifications: Absent. Upper abdomen: No significant finding. Bones: No acute osseous finding. Pulmonary arteries: Study quality: Borderline contrast bolus (236 Hounsfield units), overall diagnost ic. No pulmonary emboli detected. IMPRESSION: No CT evidence of acute pulmonary embolus. No acute process detected in the chest. Reviewed, dictated and finalized at location K.
--- NOTE | 2024-10-04 18:29 | ECG_ITS ---
Test Date: 2024-10-04 18:33:56 Measurements Intervals Lucas Rate: 144 P: 39 AZ: 118 QRS: 8 QRSD: 92 T: 35 QT: 269 QTc: 418 Interpretive Statements SINUS TACHYCARDIA WITH SHORT AZ INTERVAL, POSSIBLE ATRIAL FLUTTER Electronically Signed On 10-05-2024 13:59:40 CDT by Slim Hills D.O
--- OUTSIDE RECORDS SUMMARY | 2024-10-04 18:30 | XMS_ITS | Clinical Summary ---
Author Organization [facility] Address [address] [place] [address] Care Team Providers Care Mailroom Assistant Name Role Phone Unavailable Primary Care Provider [...] 08/08/2022 Abnormal sexual function 02/28/2022 Overview (08/08/2022): Rosebud I: 300.04 Dysthymic Disorder Rosebud II: No Diagnosis Rosebud III: HTN Rosebud IV: chronic marital discord Rosebud V; GAF: 68 Behavior problem 02/28/2022 Benign [...] (08/08/2022): Added automatically from request for surgery [id number] Added automatically from request for surgery [id number] Hypercholesteremia 04/25/2018 Overview (08/08/2022): Last Assessment & [...] on file Legal Sex Male 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 Gender Identity Not on file Sexual Orientation Not on file Last Filed Vital Signs Vital Sign Reading Time Taken Comments Blood Pressure 120/60 08/08/2022 9:54 AM STEWARD/STEWARDESS SMO[facility] ROOM Pulse - - Temperature - - Respiratory Rate - - Oxygen Saturation - - Inhaled Oxygen Concentration - - Weight 99.3 kg (219 lb) 08/08/2022 9:54 AM STEWARD/STEWARDESS S[facility] ROOM Height 180.3 cm (5' 11 ) 08/08/2022 9:54 AM STEWARD/STEWARDESS SMO[facility] ROOM Body Mass Index 30.54 08/08/2022 9:54 AM STEWARD/STEWARDESS SMOKE ROOM Plan of Treatment Health Maintenance Due Date [...] 05/29/2024, , 05/23/2023, Additional history exists Insurance [facility] BLUE ACCESS/TRUE BLUE [place] [id number]
--- OUTSIDE RECORDS SUMMARY | 2024-10-04 18:30 | XMS_ITS | Continuity of Care Document ---
Author Organization [facility] Address [address] [place] [address] Phone Care Team Providers Care Painter Rough Name Role Phone Lionel Pittman MD Unavailable Unavailable Allergies, Adverse Reactions, Alerts Substance Reaction Status Criticality bacitracin Active No Information CEPHALEXIN MONOHYDRATE Active No In formation Medications Medication Instructions Dosage Effective Dates (start - stop) Status Comments lisinopril 40 mg tablet - Active Bystolic 10 mg tablet - Active hydrochlorothiazide 25 mg tablet - Active guaifenesin 400 mg tablet - Acti ve aspirin 81 mg tablet,delayed release - Active nortriptyline 50 mg capsule - Ac tive dicyclomine 10 mg capsule - Acti ve montelukast 10 mg tablet - Activ e Procedures Procedure Date OFFICE/OUTPATIENT VISIT EST OFFICE/OUTPATIENT VISIT EST OFFICE/OUTPATIENT VISIT EST OFFICE/OUTPATIENT VISIT EST MRI SPI CANAL&CNTS LMBR C-MATRL 017 RADEX SPI LUMBOSAC 2/3 VIEWS OFFICE/OUTPATIENT VISIT NEW Advance Directives Directive Yes / No Effective Date File Name No Information Encounters Encounter Description Practice Location Reason(s) For Visit Diagnoses Date Provider Providers Copied on Encounter OFFICE/OUTPA TIENT VISIT EST [facility], [address], [place], [address], tel:[phone] [facility] Lumbar radiculopathy Body mass index (BMI) 32.0-32.9, adult Apr- 7-201 8 Zain Flowers. [address], [place], [place], [id number]. tel:[phone] [facility], [address], [place], [address], [place] tel:[phone] [facility] Lumbar radiculopathy 8 Zain Flowers. [address] , [place], [place], [id number]. tel:[phone] OFFICE/OUTPA TIENT VISIT EST [facility], [address], [place], [address], [place] tel:[phone] [facility] LBP (chief complaint) Body mass index (BMI) 32.0-32.9, adultLumbar radiculopathy Lumbar foraminal stenosis 7 Zain Flowers. [address] , [place], [place], [id number]. tel:[phone] OFFICE/OUTPA TIENT VISIT EST [facility], [address] [address], [place], [address], [place] tel:[phone] [facility] LBP (chief complaint) Body mass index (BMI) 32.0-32.9, adultDJD (degenerative joint disease), lumbosacralLu mbar facet joint pain Apr- 7 Zain Flowers. [address] , [place], [place], [id number]. tel:[phone] Referring Provider: Marshall Zuniga, [address] [facility], [place], [address]. tel:[phone] OFFICE/OUTPA TIENT VISIT EST [facility], [address] [facility] [address] [address], [place], [address], [place] tel:[phone] [facility] Low back painFacet arthritis of lumbar regionLumbar foraminal stenosis 7 Alan Eaton . [address], [place], [place], [address]. tel:[phone] [facility], [address] [address], [place], [address], [place] tel:[phone] [facility] No Information 7 No Information Referring Provider: Angelito Cee, [address], [place], [address]. tel:[phone] OFFICE/OUTPA TIENT VISIT NEW [facility], [address], [place], [address], tel:[phone] [facility] Low back painLumbar spondylosisBo dy mass index (BMI) 32.0-32.9, adult 7 O Coleman Springluis . [address], [place], [place], [address]. tel:[phone] Referring Provider: Marshall Zuniga, [address] , [place], [address]. tel:[phone] Family History Family Member Type Diagnosis Age At Onset Mother Problem (finding) Heart disease Mother/sibli Problem (finding) Diabetes Mother/siste Problem (finding) Cancer, breast Mother Problem (finding) hypertension Mother Problem (finding) stroke Payers Payer name Insurance type Covered constitution party ID Authoriza tion(s) [facility] Choice/Choice Plus E2 [id number] Social History Type Description Quantity Date Captured Comments Alcohol Use Details Caffeine Use Details Tobacco Use Status Never smoked tobacco 2017 Smoking Status Never smoker Non-Smoking Tobacco Use Details : No Details Available : No Details Available Sex Male Vital Signs Date / Time: Height Weight BMI Pulse Rate Blood Pressure Temperature Respiratory Rate Body Surface Area Head Circumference Head Circ. Percentile Wt./Sorin. Percentile BMI percentile Pulse Ox Inhaled Ox 3:18 PM 70.00 in 102.058 kg (225.00 lbs) 32.2 8 kg/m eter (2) Chief Complaint And Reason For Visit No Information Reason For Referral Reason For Referral No Information Plan Of Treatment Date Type Action Status Goal Dietary management education , guidance, and counseling completed Goal Dietary management education , guidance, and counseling completed Goal Dietary management education , guidance, and counseling completed Goal Lifestyle education regardin g diet completed Referral Ordered: INJ PARAVERT F JNT L/S 1 LEV L4-5 facet block ordered Referral Ordered: RADEX SPI LUMBOSAC 2/3 VIEWS ordered Referral Ordered: MRI SPI CANAL&CNTS LMBR C-MATRL spine, lumbar Appointment date/timeframe: 05/14/2017 ordered History Of Present Illness Encounter Date Complaint History Of Prese nt Illness LBP LBP Functional Status Date Functional Assessmen t No Information Instructions Date Instruction Additional Infor mation Dietary management e ducation, guidance, and counseling Related to Body mass index (BMI) 32.0-32.9, adult Rest, ice and elevate. Related t o Lumbar radiculopathy Dietary management e ducation, guidance, and counseling Related to Body mass index (BMI) 32.0-32.9, adult Rest, ice and elevate. Related t o Lumbar radiculopathy Dietary management e ducation, guidance, and counseling Related to Body mass index (BMI) 32.0-32.9, adult Rest and Ice. Related to Lumba r facet joint pain Discussed treatment options Rela rajat to Low back pain Giving encouragement to exercise Related to Body mass index (BMI) 32.0-32.9, adult Lifestyle education regarding di et Related to Body mass index (BMI) 32.0-32.9, adult Discussed treatment options Rela rajat to Low back pain Assessments Type Assessment Date assessment Lumbar radiculopathy assessment Body mass index (BMI) 32.0-32.9, adult Patient Care Teams Name Effective Dates (start - stop) Status Members No Information
--- OUTSIDE RECORDS SUMMARY | 2024-10-04 18:30 | XMS_ITS | Continuity of Care Document ---
Author Organization [facility] Address [address] [place] [address] Phone Care Team Providers Care Elementary Math Tutor Name Role Phone Marito Gutierrez MD Unavailable Unavailabl e Allergies, Adverse Reactions, Alerts Substance Reaction Status Criticality bacitracin Active No Information Medications Medication Instructions Dosage Effective Dates (start - stop) Status Comments Bystolic 2.5 mg tablet take 2 tablet by oral route every day 5 MG - Active lisinopril 2.5 mg tablet take 1 tablet by oral route every day 2.5 MG - Active triamterene 50 mg capsule take 1 capsule by oral route every day after a meal 50 MG - Active nortriptyline 10 mg capsule take 1 capsule by oral route every day at bedtime 10 MG - Active dicyclomine 10 mg capsule take 1 capsule by oral route 3 times every day 10 MG - Active diclofenac potassium 50 mg tablet take 1 tablet by oral route 2 times every day 50 MG - Active Jardiance 10 mg tablet take 1 tablet by oral route every day in the morning 10 MG - Active metformin 500 mg tablet take 1 tablet by oral route 2 times every day with morning and evening meals 500 MG - Active Procedures Procedure Date Derek Edwards Office/outpatient visit,est, mod 2023 BMI Documented Above Normal Limit F/U Pl an Doc Kenalog 10mg/mL Asp/inject Minor joint or bursa w/o US g uidance Office/outpatient visit,[facility] 2023 Wrist Lacer Advance Directives Directive Yes / No Effective Date File Name No Information Encounters Encounter Description Practice Location Reason(s) For Visit Diagnoses Date Provider Providers Copied on Encounter Office/outpa tient visit,est, [facility], [address], [id number], [place] tel:[phone] [facility] Right hand (chief complaint) Unilateral primary osteoarthritis of first carpometacarpa l joint, right hand 4 Brenda Devi. [address] [facility] [address], [place], [place], [id number], [place]. tel:[phone] [facility], [address], [id number], tel:[phone] [facility] Right hand and wrist (chief complaint) Unilateral primary osteoarthritis of first carpometacarpa l joint, right handColles' fracture of right radius, sequela 4 Brenda Devi. [address] [facility], [address] [address], [place], [place], [id number], [place]. tel:[phone] Referring Provider: Marito Nowak, [address] [address], [place], [address] . tel:[phone] [facility], [address], [id number], [place] tel:[phone] [facility] Pain in right hand [address] Gh[address] Gonzalez. [address] [place] [address], [address], [id number], [place]. tel:[phone] Family History Family Member Type Diagnosis Age At Onset Brother Problem (finding) Diabetes Mother Problem (finding) Diabetes Mother Problem (finding) Stroke Sister Problem (finding) Hypertension Sister Problem (finding) Cancer, unknown Sister Problem (finding) Osteoarthritis Brother Problem (finding) Osteoarthritis Mother Problem (finding) Cancer, unknown Mother Problem (finding) Heart Disease Father Problem (finding) Osteoarthritis Brother Problem (finding) Hypertension Brother Problem (finding) Cancer, unknown Sister Problem (finding) Diabetes Mother Problem (finding) Hypertension Mother Problem (finding) Osteoarthritis Brother Problem (finding) Heart Disease Immunizations Vaccine Date Status Comments influenza, injectable, quadr ivalent, (3 years or older) administered Source: Other Provid er Pneumo (2 yrs or older)(PPV) administered Source: Other Provider Payers Payer name Insurance type Covered republican ID Authoriza tijosh(s) Sherita Fajardo [facility] [id number] AB [facility] Claims CI [id number] Social History Type Description Quantity Date Captured Comments Alcohol Use Details Unknown Caffeine Use Details Unknown Tobacco Use Status No Information Smoking Status Never smoker Non-Smoking Tobacco Use Details : No Details Available : No Details Available Sex Male Vital Signs Date / Time: Height Weight BMI Pulse Rate Blood Pressure Temperature Respiratory Rate Body Surface Area Head Circumference Head Circ. Percentile Wt./Sorin. Percentile BMI percentile Pulse Ox Inhaled Ox 9:32 AM 71.00 in 98.430 kg (217.00 lbs) 30.2 7 kg/m lissette (2) Chief Complaint And Reason For Visit From encounter dated '11/07/2023 09:30'. Right hand (chief complaint). Description: Russell returns to the office today on November 07, 2023. He is here for follow-up of right hand pain. Russell was last seen in the office 3 months ago on July 30, 2023. 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 I gave Russell a cortisone injection into the right thumb carpometacarpal joint on July 30, 2023. He is here for re-evaluation today. He reports persistent pain at the base of the right thumb.Russell did have electrodiagnostic studies performed back on March 23, [address] Daron Lizarraga at the [facility]. The results were interpreted as ...1. There is noelectrodiagnostic evidence of a right median, ulnar, or radial focal distal neuropathy at the wristor at the elbow at the present time. 2. Normal needle EMG examination of selected muscles of the right upper extremity... Russell reports that he does occasionally wake up at night with numbness and tingling in his right hand. He is here primarily because of persistent pain at the base of the right thumb. Reason For Referral Reason For Referral No Information Plan Of Treatment Date Type Action Status Referral Ordered: X-ray exam hand, 3+ views RT ordered History Of Present Illness Encounter Date Complaint History Of Prese nt Illness Right hand Russell returns to the office today on November 07, 2023. He is here for follow-up of right hand pain. Russell was last seen in the office 3 months ago on July 30, 2023. 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 I gave Russell a cortisone injection into the right thumb carpometacarpal joint on July 30, 2023. He is here for re-evaluation today. He reports persistent pain at the base of the right thumb. Russell did have electrodiagnostic studies performed back on March 23, [address] Daron Lizarraga at the [facility]. The results were interpreted as ...1. There is no electrodiagnostic evidence of a right median, ulnar, or radial focal distal neuropathy at the wrist or at the elbow at the present time. 2. Normal needle EMG examination of selected muscles of the right upper extremity... Russell reports that he does occasionally wake up at night with numbness and tingling in his right hand. He is here primarily because of persistent pain at the base of the right thumb. Right hand and wrist Russell pre sents to the office today on July 30, 2023. He is here because of right hand and wrist pain. Russell reports that he injured his right hand and wrist more than 30 years ago when he fell off of a truck. He describes a severe fracture of the right distal radius, and he was treated with an external fixator. Russell tells me that the surgeons told him that he would likely lose use of his right hand. He recalls being told that he would likely have a claw hand. However, with physical therapy, Russell was able to make a strong recovery. He did well for many years, but he started to develop pain in his right hand and wrist about 9 months ago. He does not describe numbness or tingling. However, he drops things. He describes aching. He describes the pain as dull and occasional. He also reports weakness in his right hand. 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 He did have x-rays taken at [facility] on July 27, 2023. The x-rays show what appears to be a healed fracture of the right distal radius in good alignment. There is also the remnant of an ulnar styloid fracture. There is also a chronic healed fracture of the distal right fifth metacarpal. Arthritic changes are noted through the carpometacarpal joint at the base of the right thumb, with joint space narrowing, irregularity, and osteophyte formation. Functional Status Date Functional Assessmen t No Information Instructions Date Instruction Additional Infor mation No Information Assessments Type Assessment Date assessment Unilateral primary o steoarthritis of first carpometacarpal joint, right hand impression I gave Russell a Iraj Guerraara Thumb Spica Splint today for the right thumb carpometacarpal joint osteoarthritis. I showed him how to apply the splint. I showed Russell that there were both flexible and rigid metal strips inside the splint, and he may add or remove the metal strips as desired for comfort and function. The purpose of the splint is to provide comfort, support, and protection over the next 6 weeks, and beyond as needed. The splint should improve function by immobilizing the carpometacarpal joint at the base of the right thumb, minimizing bone on bone inflammation, thereby reducing pain and allowing for increased and improved use of the thumb and hand. Russell will use the splint when he is experiencing pain in the right thumb or hand, or when he is going to be participating in an activity that the patient expects to cause pain. The splint is provided as a permanent issue. Russell may advance his activities as tolerated. He may follow up as needed. Russell may also call with any questions or concerns Patient Care Teams Name Effective Dates (start - stop) Status Members No Information
--- OUTSIDE RECORDS SUMMARY | 2024-10-04 18:30 | XMS_ITS | Encounter Summary ---
Author Organization [facility] Address [address] [place] [address] Care Team Providers Care Cad Designer Drafter Name Role Phone Jose Manuel Chavarria MD Unavailable [phone] Rena Wakefield Primary Care Provider [phone] Reason for Visit * Reason Onset Date Comments Cough 09/10/2024 Congestion 09/10/2024 Headache 09/10/2024 Encounter Details Date Type Department Care Team (Late st Contact Info) Description 09/10/2024 Nurse Triage [facility] Family Medicine [address] [address] Rena Wakefield PA [address] [address] Social History Tobacco Use Types Packs/Day Years Used Date Smoking Tobacco: Never Smokeless Tobacco: Never Alcohol Use Standard Drinks/Week Comments Yes 0 (1 standard drink = 0.6 oz pur e alcohol) occassional AUDIT-C Answer Date Recorded Q1: How often do you have a drink containing alc ohol? 2-4 times a month 09/29/2024 Q2: How many drinks containi ng alcohol do you have on a typical day when you are drinking? 3 or 4 09/29/2024 Q3: How often do you have si x or more drinks on one occasion? 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 2-4 times a month 09/29/2024 12:33 PM Sonam Person MA Q2: How many drinks containing alcohol do you have on a typical day when you are drinking? 3 or 4 09/29/2024 12:33 PM Sonam Person MA Q3: How often do you have six or more drinks on one occasion? Never 09/29/2024 12:33 PM Sonam Person MA documented as of this encounter Miscellaneous Notes * Telephone Encounter - Darion Campbell LPN - 09/10/2024 11:02 AM CST Spoke with pt, he states he is miserable and would like to see GE Chase, scheduled at 12:45pm. m [facility] * Telephone Encounter - Patsy Newton RN - 09/10/2024 8:05 AM TEACHER ADULT EDUCATION Complaint: Productive persitent cough, dark phlegm, headache. [...] from the office, can be reached at [phone]. Allergies and preferred pharmacy verified and current. [id number] - [place], [place] - [address] [place] [id number] Allergies as of 09/10/2024 - Reviewed 09/10/2024 [...] after coughing, vomiting after coughing) Protocols used: [id number] HER ADULT EDUCATION * Telephone Encounter - Patsy Newton RN - 09/10/2024 8:01 AM TEACHER ADULT EDUCATION Regarding: coughing since Sunday, discharging dark phlegm, constant headache ----- Message from Dalton Soler sent at 09/10/2024 8:01 AM TEACHER ADULT EDUCATION ----- Symptom Based Call Chief Complaint(s): coughing [...] message need to be routed? Yes-Action Needed [facility]ULT [facility]UCATION documented in this encounter Plan of Treatment Not on file documented as of this encounter Visit Diagnoses Not on filedocumented in this encounter Care Teams Cad Designer Drafter Relationship Specialty Start Date End Date Rena Wakefield PA [address] [place] [address] PCP - General Critical Care Med 08/08/22 [place] [id number] [facility] [address] [place] [address] Consulting Physician Urology 05/04/20 documented as of this encounter
--- OUTSIDE RECORDS SUMMARY | 2024-10-04 18:30 | XMS_ITS | Referral Summary ---
Author Organization [facility] D Address [address] [place] [address] Care Team Providers Care Team Assembly Line Machine Operator Name Role Phone Jose Manuel Chavarria MD Unavailable [phone] Rena Wakefield Primary Care Provider [phone] Encounters Date Type Department Care Team Description 09/29/2024 12:30 PM CDT Office Visit [address] [address] Rena Wakefield PA Stress fracture of right fibula with delayed healing, subsequent encounter (Primary Dx); Type 2 diabetes mellitus with hyperlipidemia (HCC); Testicular hypofunction 09/10/2024 12:45 PM SANDING MACHINE BUFFER Office Visit [address] [address] Rena Wakefield PA Right otitis media with effusion (Primary Dx); Acute bronchitis, unspecified organism; Type 2 diabetes mellitus with hyperlipidemia (HCC); Primary hypertension 09/10/2024 Nurse Triage [address] [address] Rena Wakefield PA 08/05/[address] [address] Maris Deleon PA 07/28/[address] [address] Rena Wakefield PA 07/25/2024 Orders Only [facility] [address] [address] Maris Deleon PA from Last 3 Months Allergies Active Allergy Reactions Criticality Noted Date Comments Bacitracin Rash,Hives High 08/24/2004 Cephalexin Rash,Hives High 08/05/2004 Reaction: RASH, Codeine Nausea & Vomiting Low 11/12/2000 Dimethicone Urticaria High 07/26/2015 Other Unknown 10/27/2005 Testosterone Other (See comments) Low 11/10/2004 Ketorolac Rash Medium 01/10/2022 Medications aspirin (ASPIR-81) 81 mg tablet take 1 tablet by oral route every day 0 0 013 Active meclizine (ANTIVERT) 25 mg tablet Take 1 tablet (25 mg total) by mouth 3 (three) times a day as needed (vertigo) 021 Active traZODone (DESYREL) 100 mg tablet trazodone 100 mg tablet TAKE 1 TABLET BY MOUTH EVERY NIGHT AT BEDTIME NEEDED FOR INSOMNIA Active nortriptyline (PAMELOR) 50 mg capsule Take 1 capsule (50 mg total) by mouth daily after lunch 023 Active dicyclomine (BENTYL) 10 mg capsuleIndication s:Irritable bowel syndrome without diarrhea Take 1 capsule (10 mg total) by mouth 2 (two) times a day 180 capsule 023 Active atorvastatin (LIPITOR) 40 mg tablet Take 0.5 tablets (20 mg total) by mouth nightly 45 tablet 1 023 Active Jardiance 25 mg tabletIndications :Type 2 diabetes mellitus with hyperlipidemia (HCC) TAKE 1 TABLET(25 MG) BY MOUTH DAILY 90 tablet 1 024 Active omega 4-elg-xmo-fish oil (Fish OiL) 1,000 mg (120 mg-180 mg) capsule Take 1 capsule (1,000 mg total) by mouth 2 (two) times a day 023 Active triamcinolone (KENALOG) 0.5 % cream Active ondansetron ODT (ZOFRAN-ODT) 4 mg disintegrating tablet Take 1 tablet (4 mg total) by mouth every 8 (eight) hours as needed for vomiting or nausea [address] (VOLTAREN) 50 mg EC tabletIndications :Chronic low back pain, unspecified back pain laterality, unspecified whether sciatica present Take 1 tablet (50 mg total) by mouth 2 (two) times a day 180 tablet 3 024 Active Additional Information Patient not taking.Reported on 09/29/2024 LORazepam (ATIVAN) 1 mg tabletIndications :Trouble in sleeping,Anxiety TAKE 1 TABLET(1 MG) BY MOUTH EVERY NIGHT NEEDED FOR ANXIETY OR SLEEP 30 tablet Active lisinopriL (PRINIVIL,ZESTRIL ) 20 mg tabletIndications :Primary hypertension Take 1 tablet (20 mg total) by mouth daily 90 tablet 1 024 Active cyclobenzaprine (FLEXERIL) 10 mg tabletIndications :Back muscle spasm,History of back surgery TAKE 1 TABLET(10 MG) BY MOUTH THREE TIMES DAILY NEEDED FOR MUSCLE SPASMS 30 tablet 2 024 Active testosterone cypionate (DEPO-TESTOTERONE ) 200 mg/mL injection Inject 7.5 mg into the muscle as instructed once a week Active lancets miscIndications:T ype 2 diabetes mellitus with hyperlipidemia (HCC) 200 each by other route as directed Use to check BS once daily for diabetes 200 each 3 Active blood glucose diagnostic stripIndications: Type 2 diabetes mellitus with hyperlipidemia (HCC) 1 each by other route as directed Use to check blood sugar once daily 200 strip 3 024 Active nebivoloL (BYSTOLIC) 20 mg tabletIndications :Primary hypertension TAKE 1 TABLET(20 MG) BY MOUTH DAILY 30 tablet 2 Active metFORMIN XR (GLUCOPHAGE XR) 500 mg 24 hr tabletIndications :Type 2 diabetes mellitus with other circulatory complication, without long-term current use of insulin (HCC) TAKE 1 TABLET(500 MG) BY MOUTH DAILY WITH BREAKFAST 90 tablet 1 025 Active Additional Information Patient taking differently: 1,000 mg, Reported on 09/29/2024 triamterene-hydro CHLOROthiazide 37.5-25 mg per tabletIndications :Vertigo TAKE 1 TABLET BY MOUTH DAILY 90 tablet 1 025 Active semaglutide (Rybelsus) 7 mg tablet TAKE 1 TABLET(7 MG) BY MOUTH GROUP CAPTAIN BEFORE BREAKFAST 90 tablet 1 025 Active albuterol HFA (PROVENTIL HFA,VENTOLIN HFA,PROAIR HFA) 90 mcg/actuation inhaler INHALE 2 PUFFS BY MOUTH FOUR TIMES DAILY NEEDED FOR SHORTNESS OF BREATH OR WHEEZING 025 Active benzonatate (TESSALON) 200 mg capsule TAKE 1 CAPSULE BY MOUTH THREE TIMES DAILY NEEDED FOR COUGH 025 Active montelukast (SINGULAIR) 10 mg tablet Take 1 tablet (10 mg total) by mouth daily 025 Active tamsulosin (FLOMAX) 0.4 mg extended release capsule Take 1 capsule (0.4 mg total) by mouth daily 025 Active busPIRone (BUSPAR) 10 mg tabletIndications :JAYE (generalized anxiety disorder) TAKE 1 TABLET(10 MG) BY MOUTH THREE TIMES DAILY 90 tablet 3 025 Active diazePAM (VALIUM) 5 mg tablet Take by mouth nightly 025 Active methylPREDNISolon e (MEDROL DOSEPACK) 4 mg Dosepack FOLLOW PACKAGE DIRECTIONS 025 Active indomethacin (INDOCIN) 50 mg capsule Take 1 capsule (50 mg total) by mouth 3 (three) times a day 025 Active busPIRone (BUSPAR) 10 mg tabletIndications :Generalized Anxiety Disorder Take 1 tablet (10 mg total) by mouth 3 (three) times a day 90 tablet 3 024 2024 Discontinued predniSONE (DELTASONE) 20 mg tabletIndications :Right otitis media with effusion Take 2 tablets (40 mg) by mouth daily for 3 days 6 tablet 025 2024 amoxicillin-clavu lanate (AUGMENTIN) 875-125 mg per tabletIndications :Right otitis media with effusion Take 1 tablet by mouth 2 (two) times a day for 10 days 20 tablet 025 2024 Active Problems Problem Noted Date Diagnosed [...] 2023 Assessment & Plan (2023 9:35 AM SANDING MACHINE BUFFER): Chronic problem, will check MRI to see if it is progressing. Referred back to Neurosurgery The patient was anxious to start some weighted squats and I recommended that he hold off until we get the imaging Lumbar radiculopathy, acute 2023 Assessment & Plan (2023 9:36 AM SANDING MACHINE BUFFER): Acute on chronic exacerbation Will check x-rays [...] 2023 Assessment & Plan (2023 9:36 AM SANDING MACHINE BUFFER): May have an element of greater trochanteric bursitis I did discuss a possible injection which I would be happy to do to see if it helps but he declined today. He prefer to have imaging completed 1st History of spinal fusion 2023 Assessment & Plan (2023 9:37 AM SANDING MACHINE BUFFER): I would like an MRI before deciding the next step. I would also like the opinion of his neurosurgeon. I have ordered this imaging and he will let me know when it is scheduled Fatty liver 08/09/2023 Assessment & Plan (2023 9:32 AM SANDING MACHINE BUFFER): Check liver function on lab work Dislocation of jaw 03/22/2023 Overview (03/22/2023): Soft diet recommended. May add an extra diclofenac for a few days Right carpal tunnel syndrome 03/12/2023 Sensorineural hearing loss, unilateral, right ear, with unrestricted hearing on the contralateral side 08/08/2022 Assessment & Plan (03/27/2024 12:20 PM CDT): Hearing aid Testicular hypofunction 02/28/2022 Assessment & Plan (09/29/2024 1:46 PM CDT): Chronic condition, managed by endocrinology Last testosterone level was low Assessment & Plan (03/27/2024 12:19 PM CDT): On testosterone replacement therapy by outside physician Primary hypertension 02/28/2022 Assessment & Plan (06/25/2024 4:17 PM SANDING MACHINE BUFFER): Chronic condition, currently uncontrolled I recommended increasing [...] mellitus with hyperlipidemia 05/2021 Assessment & Plan (09/29/2024 1:46 PM CDT): Chronic and controlled normally except when exacerbated with steroids, so likely currently uncontrolled which is probably delaying healing Prednisone is causing hyperglycemia. He is on metformin, Jardiance, and Rybelsus for diabetes management. Vp Director Of Creative Strategy increased metformin to 2000 mg per day. Hyperglycemia may impede healing, thus avoiding further steroid use is crucial. - Continue current diabetes medications: metformin, Jardiance, and Rybelsus - Monitor blood sugar levels closely - Avoid further steroid use to prevent exacerbation of hyperglycemia Assessment & Plan (06/25/2024 4:16 PM SANDING MACHINE BUFFER): Chronic condition, controlled Continue with Jardiance, metformin [...] future Assessment & Plan (2023 9:32 AM SANDING MACHINE BUFFER): Time to check A1c and urine microalbumin, ordered Continue Jardiance and metformin Sleep apnea 08/02/2020 Assessment & Plan (03/27/2024 12:21 PM CDT): Status post surgery Erectile dysfunction due to diseases classified elsewhere 02/06/2020 Overview (10/24/2022): Added automatically from request for surgery [id number] Added automatically from request for surgery [id number] Added automatically from request for surgery [id number] Assessment & Plan (03/27/2024 12:18 PM CDT): [...] 03/27/2024 Abnormal sexual function 02/28/2022 Overview (08/08/2022): [place] I: 300.04 Dysthymic Disorder [place] II: No Diagnosis [place] III: HTN [place] IV: chronic marital discord [place] V; GAF: 68 [place] I: 300.04 Dysthymic Disorder [place] II: No Diagnosis [place] III: HTN [place] IV: chronic marital discord [place] V; GAF: 68 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 [...] on file Legal Sex Male 12:20 AM SANDING MACHINE BUFFER Gender Identity Male 04/30/2020 1:34 PM CDT Sexual Orientation Straight 04/30/2020 1: 34 PM CDT Last Filed Vital Signs Vital Sign Reading Time Taken Comments Blood Pressure 132/86 09/29/2024 12:33 PM CDT Pulse 99 09/29/2024 12:33 PM CDT Temperature 36.3 C (97.4 F) 09/29/2024 12:33 PM CDT Respiratory Rate 16 09/29/2024 12:33 PM CDT Oxygen Saturation 97% 09/29/2024 12:33 PM CDT Inhaled Oxygen Concentration - - Weight 97.3 kg (214 lb 6.4 oz) 09/29/2024 12:33 PM CDT Height 180.3 cm (5' 11 ) 09/29/2024 12:33 PM CDT Body Mass Index 29.9 09/29/2024 12:33 PM CDT Plan of Treatment Not on file Medical Devices Implanted Type Area Professor Of Law Device Identifier Shelf Expiration Date Model / Serial / Lot [employer] [id number] [facility] 700 Kit Accessory Penile Prosthesis - [id number] Implanted:Qty: 1 on 05/03/2020 by Jose Manuel Chavarria MD at [facility] N/A: Penis [employer] Anamaria 03/03/2025 [id number] / / [id number] [employer] [id number] Ams 700cx Ultrex Inflatable Preconnect Tactile Pump Cylinder - [id number] Implanted:Qty: 1 on 05/03/2020 by Jose Manuel Chavarria MD at [facility] N/A: Penis [employer] Anamaria 08/27/2023 [id number] / / [id number] I Had Cancer [id number] Ams 700 Ms Pump Preconnect Inflatable [place] Prosthesis 65ml - [id number] Implanted:Qty: 1 on 05/03/2020 by Jose Manuel Chavarria MD at [facility] N/A: Penis [employer] Anamaria 02/25/2022 [id number] / / [id number] Prosthesis Penile Ams 700 Cxr Tactile Pump 18cm Inflatable - [id number] Implanted:Qty: 1 on 05/03/2020 by Jose Manuel Chavarria MD at [facility] N/A: Penis [employer] Anamaria 04/10/2021 [id number] / / [id number] Description:Non-clinical carlos ting has demonstrated the penile [...] 08/04/2024 HEMOGLOBIN A1C Routine 07/26/2024 8:24 AM SANDING MACHINE BUFFER Type 2 diabetes mellitus with hyperlipidemia (HCC) LIPID PANEL Routine 04/19/2024 7:38 AM CDT Type 2 diabetes mellitus with hyperlipidemia (HCC) ALBUMIN CREATININE RATIO, URINE Routine 04/19/2024 7:38 AM CDT BASIC METABOLIC PANEL Routine 04/19/2024 7:36 AM CDT Hyponatremia Meniere's disease, unspecified laterality COLONOSCOPY Routine 03/02/2023 PSA SCREEN Routine 09/05/2022 6:27 AM SANDING MACHINE BUFFER Screening for prostate cancer from Last 3 Months or Most Recently Relevant to Health Maintenance Results * DIABETES EYE EXAM (08/04/2024) SCRIBED DIABETIC DILATED EYE EXAM Normal Historical Provider HEALTH MAINTENANCE Final Result * (ABNORMAL) Hemoglobin A1c (07/26/2024 8:24 AM SANDING MACHINE BUFFER) Hgb A1C 7.0(H) <5.7 % of total Hgb [facility] Comment: For someone without known diabetes, [...] diabetes for children. Blood 07/26/2024 8:24 AM SANDING MACHINE BUFFER 07/26/2024 8:25 AM SANDING MACHINE BUFFER Rena [facility] BLOOD ORDERABLES Final Resul t [facility] [address] [place] [address] * Albumin Creatinine Ratio, Urine (04/19/2024 7:38 AM CDT) Pathologist [facility] Creatinine, ur 164 20 - 320 mg/dL [...] [facility] URINE ORDERABLES Final Resul t Performing Organization Address [facility]/ZIP Co de Phone Number [facility] [address] [address] * Lipid panel (04/19/2024 7:38 AM CDT) [...] LDL-C. Gerry SS et al. CANDELARIA. 2013;310(19): 4890-0423 (http://education.[employer].Libboo/faq/LOX147) Chol/HDL ratio 2.7 <5.0 (calc) [facility] [...] [facility] BLOOD ORDERABLES Final Resul t Performing Organization Address City/[facility]/ZIP Co de Phone Number [facility] [address] [address] * (ABNORMAL) Basic metabolic panel (04/19/2024 7:36 [...] [place] BUN/creat ratio SEE NOTE: 6 - (calc) [facility] Comment: Not Reported: [...] [facility] BLOOD ORDERABLES Final Resul t Performing Organization Address [facility]/ZIP Co de Phone Number [facility] [address] [address] * Colonoscopy (03/02/2023) Anatomical Region Laterality Modality Other Historical Provider ENDOSCOPY PROCEDURES Saige l Result * PSA screen (09/05/2022 6:27 AM SANDING MACHINE BUFFER) PSA 0.41 < OR = 4.00 ng/mL [facility] Comment: The total PSA value [...] copy faxed has been acknowledged. Queued to: [id number] Blood 09/05/2022 6:27 AM SANDING MACHINE BUFFER 09/05/2022 6:30 AM SANDING MACHINE BUFFER Narrative [facility] - 09/06/2022 3:12 AM SANDING MACHINE BUFFER FASTING:YES FASTING: YES us Rena [facility] BLOOD ORDERABLES Final Resul t [facility] [address] [place] [address] from Last 3 Months or Most Recently Relevant to Health Maintenance Insurance [facility] CLAIMS [facility] CLAIMS [employer]UE [employer] [place] [facility] CLAIMS BLUE ACCESS OOS Advance Directives For more information, please contact: [phone] * Full Code (Latest Code Status on File) Date Activated Date Inactivated Comments 05/03/2020 11:00 AM 05/04/2020 1:51 PM Care Teams Team Assembly Line Machine Operator Relationship Specialty Start Date End Date Rena Wakefield PA [address] [place] [address] PCP - General Critical Care Med 08/08/22 [place] [address] [address] [facility] [address] [place] [address] Consulting Physician Urology 05/04/20
--- OUTSIDE RECORDS SUMMARY | 2024-10-04 18:30 | XMS_ITS | Patient Health Record ---
Author Organization [facility] Address [address] [place] [address] Care Team Providers Care Network Communications Engineer Name Role Phone Craig Fitzpatrick Unavailable [phone] Hayes Jj Unavailable Unavailable Allergies Allergen (clinical [...] Risk Notes Problem Fear of medical treatment (348962912) Fear of injections and transfusions (F40.231) Active confirmed Problem Lumbosacral spondylosis without myelopathy (82617277) Spondylosis without myelopathy or radiculopathy, lumbar region (M47.816) Active confirmed Problem Degeneration of lumbar intervertebral disc (49290941) Other intervertebral disc degeneration, lumbar region (M51.36) Active confirmed Problem Degeneration of cervical intervertebral disc (33023348) Other cervical disc degeneration, mid-cervical region, unspecified level (M50.320) Active confirmed Plan Of Treatment No Information Insurance Providers Payer Name Payer Address Payer Phone Subscriber Number Group Number Insured Name Patient Relationship to Insured Coverage Start Date Coverage End Date [employer] [address] [place] [address] [phone] [id number] Russell Jeronimo Self - patient is the insured [facility] [address] [place] [address] [phone] [id number] Russell Jeronimo Self - patient is the insured Medical (General) History Medical History History ICD Code high blood pressure diabetes anemia kidney stones irritable bowel synrome pneumonia Surgical History Surgery Date(Month/Year) penile implant sinus cushed wrist appenectomy
--- OUTSIDE RECORDS SUMMARY | 2024-10-04 18:30 | XMS_ITS | Clinical Summary ---
Author Organization [facility] D Address [address] [place] [address] Care Team Providers Care Fabric Pattern Grader Name Role Phone Jose Manuel Chavraria MD Unavailable [phone] Rena Wakefield Primary Care Provider [phone] Allergies Active Allergy Reactions Criticality Noted Date [...] DAILY 90 tablet 1 024 Active omega 1-qey-pcf-fish oil (Fish OiL) 1,000 mg (120 mg-180 mg) capsule Take 1 capsule (1,000 mg total) by mouth 2 (two) times a day 023 Active triamcinolone (KENALOG) 0.5 % cream 024 Active ondansetron ODT (ZOFRAN-ODT) 4 mg disintegrating tablet Take 1 tablet (4 mg total) by mouth every 8 (eight) hours as needed for vomiting or nausea 20 tablet [address] (VOLTAREN) 50 mg EC [...] NEEDED FOR ANXIETY OR SLEEP 30 tablet 024 Active lisinopriL (PRINIVIL,ZESTRIL ) 20 mg tabletIndications [...] once daily for diabetes 200 each 3 024 Active blood glucose diagnostic stripIndications: Type 2 diabetes mellitus with hyperlipidemia (HCC) 1 each by other route as directed Use to check blood sugar once daily 200 strip 3 024 Active nebivoloL (BYSTOLIC) 20 mg tabletIndications :Primary hypertension TAKE 1 TABLET(20 MG) BY MOUTH DAILY 30 tablet 2 025 Active metFORMIN XR (GLUCOPHAGE XR) 500 mg [...] tablet TAKE 1 TABLET(7 MG) BY MOUTH DISPATCHER SERVICE OR WORK BEFORE BREAKFAST 90 tablet 1 025 Active [...] 2023 Assessment & Plan (2023 9:35 AM SENIOR CORPORATE RECRUITER): Chronic problem, will check MRI to see if it is progressing. Referred back to Neurosurgery The patient was anxious to start some weighted squats and I recommended that he hold off until we get the imaging Lumbar radiculopathy, acute 2023 Assessment & Plan (2023 9:36 AM SENIOR CORPORATE RECRUITER): Acute on chronic exacerbation Will check x-rays [...] 2023 Assessment & Plan (2023 9:36 AM SENIOR CORPORATE RECRUITER): May have an element of greater trochanteric bursitis I did discuss a possible injection which I would be happy to do to see if it helps but he declined today. He prefer to have imaging completed 1st History of spinal fusion 2023 Assessment & Plan (2023 9:37 AM SENIOR CORPORATE RECRUITER): I would like an MRI before deciding the next step. I would also like the opinion of his neurosurgeon. I have ordered this imaging and he will let me know when it is scheduled Fatty liver 08/09/2023 Assessment & Plan (2023 9:32 AM SENIOR CORPORATE RECRUITER): Check liver function on lab work Dislocation [...] 02/28/2022 Assessment & Plan (06/25/2024 4:17 PM SENIOR CORPORATE RECRUITER): Chronic condition, currently uncontrolled I recommended increasing [...] metformin, Jardiance, and Rybelsus for diabetes management. Belt Loop Cutter increased metformin to 2000 mg per day. Hyperglycemia may impede healing, thus avoiding further steroid use is crucial. - Continue current diabetes medications: metformin, Jardiance, and Rybelsus - Monitor blood sugar levels closely - Avoid further steroid use to prevent exacerbation of hyperglycemia Assessment & Plan (06/25/2024 4:16 PM SENIOR CORPORATE RECRUITER): Chronic condition, controlled Continue with Jardiance, metformin [...] future Assessment & Plan (2023 9:32 AM SENIOR CORPORATE RECRUITER): Time to check A1c and urine microalbumin, ordered Continue Jardiance and metformin Sleep apnea 08/02/2020 Assessment & Plan (03/27/2024 12:21 PM CDT): Status post surgery Erectile dysfunction due to diseases classified elsewhere 02/06/2020 Overview (10/24/2022): Added automatically from request for surgery [id number] Added automatically from request for surgery [id number] Added automatically from request for surgery [id number] Assessment & Plan (03/27/2024 12:18 PM CDT): [...] testosterone injections He has also been taking Lroetta D until today I would like time [...] 03/27/2024 Abnormal sexual function 02/28/2022 Overview (08/08/2022): Montgomery I: 300.04 Dysthymic Disorder Montgomery II: No Diagnosis Montgomery III: HTN Montgomery IV: chronic marital discord Montgomery V; GAF: 68 Montgomery I: 300.04 Dysthymic Disorder Montgomery II: No Diagnosis Montgomery III: HTN Montgomery IV: chronic marital discord Montgomery V; GAF: 68 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 [...] Description 09/29/2024 12:30 PM CDT Office Visit [address] [address] Rena Wakefield PA Stress fracture of right fibula with delayed healing, subsequent encounter (Primary Dx); Type 2 diabetes mellitus with hyperlipidemia (HCC); Testicular hypofunction 09/10/2024 12:45 PM SENIOR CORPORATE RECRUITER Office Visit [address] [address] Rena Wakefield PA Right otitis media with effusion (Primary Dx); Acute bronchitis, unspecified organism; Type 2 diabetes mellitus with hyperlipidemia (HCC); Primary hypertension 09/10/2024 Nurse Triage [address] [address] Rena Wakefield PA 08/05/[address] [address] Maris Deleon PA 07/28/[address] [address] Rena Wakefield PA 07/25/2024 Orders Only [address] [address] Maris Deleon PA from Last 3 Months Immunizations Immunization Administration [...] Sars-cov-2 Bivalent Vaccine 50 Mcg/0.5 mL (12+ YRS)-Blue/Sprgaue 06/09/2022 Moderna Sars-cov-2 Monovalen t Booster Vaccination [...] by TW Conv) Heart attack Brother 1 Heladio Heart disease Brother 1 Bill Heart attack [...] on file Legal Sex Male 12:20 AM SENIOR CORPORATE RECRUITER Gender Identity Male 04/30/2020 1:34 PM CDT [...] 09/29/2024 12:33 PM CDT Plan of Treatment Health Maintenance Due Date Last Done Comments Hepatitis C Screening 1965 Hepatitis B Screening 1983 Prostate Cancer Screening-PSA 09/05/2024 09/05/2022 Hemoglobin A1C 01/23/2025 07/26/2024, 02/20, 09/20/2023, Additional history exists Regular Well Visit/Exam 18-64 03/26/2025 03/26/2024 Albumin Creatinine Ratio, Urine 04/19/2025 04/19/2024, 09/20/2023, 08/25/2022 Lipid Panel 04/19/2025 04/19/2024, 02/20, 02/10/2022, Additional history exists eGFR 04/19/2025 04/19/2024, 08, 02/22/2024, Additional history exists Foot Exam 06/25/2025 06/25/2024, 10/24/2022 Dilated Eye Exam 08/04/2025 08/04/2024, , 08/24/2022 Depression Screening 09/29/2025 09/29/2024, 09/10/2024, 06/25/2024, Additional history exists Colon Cancer Screening-Colonoscopy 03/02/2028 [...] history exists Medical Devices Implanted Type Area Network Technology Instructor Device Identifier Shelf Expiration Date Model / Serial / Lot [employer] [id number] Ams 700 Kit Accessory Penile Prosthesis - [id number] Implanted:Qty: 1 on 05/03/2020 by Jose Manuel Chavarria MD at [facility] N/A: Penis [employer] Anamaria 03/03/2025 [id number] / / [id number] [employer] [id number] Ams 700cx Ultrex Inflatable Preconnect Tactile Pump Cylinder - [id number] Implanted:Qty: 1 on 05/03/2020 by Jose Manuel Chavarria MD at [facility] N/A: Penis [employer] Anamaria 08/27/2023 [id number] / / [id number] [employer] [id number] Ams 700 Ms Pump Preconnect Inflatable Kendall Prosthesis 65ml - [id number] Implanted:Qty: 1 on 05/03/2020 by Jose Manuel Chavarria MD at [facility] N/A: Penis [employer] Anamaria 02/25/2022 [id number] / / [id number] Prosthesis Penile Ams 700 Cxr Tactile Pump 18cm Inflatable - [id number] Implanted:Qty: 1 on 05/03/2020 by Jose Manuel Chavarria MD at [facility] N/A: Penis [employer] 04/10/2021 [id number] / / [id number] Description:Non-clinical carlos meier has demonstrated the penile prostheses AMS 700 [...] 08/04/2024 HEMOGLOBIN A1C Routine 07/26/2024 8:24 AM SENIOR CORPORATE RECRUITER Type 2 diabetes mellitus with hyperlipidemia (HCC) LIPID PANEL Routine 04/19/2024 7:38 AM CDT Type 2 diabetes mellitus with hyperlipidemia (HCC) ALBUMIN CREATININE RATIO, URINE Routine 04/19/2024 7:38 AM CDT BASIC METABOLIC PANEL Routine 04/19/2024 7:36 AM CDT Hyponatremia Meniere's disease, unspecified laterality COLONOSCOPY Routine 03/02/2023 PSA SCREEN Routine 09/05/2022 6:27 AM SENIOR CORPORATE RECRUITER Screening for prostate cancer from Last 3 Months or Most Recently Relevant to Health Maintenance Results * DIABETES EYE EXAM (08/04/2024) Pathologist [facility] SCRIBED DIABETIC DILATED EYE EXAM Normal us Historical Provider HEALTH MAINTENANCE Final Result * (ABNORMAL) Hemoglobin A1c (07/26/2024 8:24 AM SENIOR CORPORATE RECRUITER) Pathologist [facility] Hgb A1C 7.0(H) <5.7 % of total Hgb [facility] Comment: For someone without known diabetes, [...] diabetes for children. Blood 07/26/2024 8:24 AM SENIOR CORPORATE RECRUITER 07/26/2024 8:25 AM SENIOR CORPORATE RECRUITER Rena [place] LAB BLOOD ORDERABLES Final Resul t Performing Organization Address City/[facility]/ZIP Co de Phone Number [facility] [address] [place] [address] * Albumin Creatinine Ratio, Urine (04/19/2024 7:38 [...] LAB URINE ORDERABLES Final Resul t [facility] [address] [address] [address] * Lipid panel (04/19/2024 7:38 AM CDT) [...] LDL-C. Gerry SS et al. CANDELARIA. 2013;310(19): 8863-2366 (http://education.[place]/faq/PTZ562) Chol/HDL ratio 2.7 <5.0 (calc) [facility] [...] LAB BLOOD ORDERABLES Final Resul t [facility] [address] [place] [address] * (ABNORMAL) Basic metabolic panel (04/19/2024 7:36 [...] [facility] [facility] BUN/creat ratio SEE NOTE: 6 22 (calc) [facility] Comment: Not [...] BLOOD ORDERABLES Final Resul t [facility] [address] [place] [address] * Colonoscopy (03/02/2023) Anatomical Region Laterality Modality Other Historical Provider ENDOSCOPY PROCEDURES Saige l Result * PSA screen (09/05/2022 6:27 AM SENIOR CORPORATE RECRUITER) PSA 0.41 < OR = 4.00 ng/mL [facility] Comment: The total PSA value from this assay system is standardized against the WHO standard. The test result will be approximately 20% lower when compared to the equimolar-standardized total PSA (Sheila Thomas). Comparison of serial PSA results should be [...] copy faxed has been acknowledged. Queued to: [id number] Blood 09/05/2022 6:27 AM SENIOR CORPORATE RECRUITER 09/05/2022 6:30 AM SENIOR CORPORATE RECRUITER Narrative [facility] - 09/06/2022 3:12 AM SENIOR CORPORATE RECRUITER FASTING:YES FASTING: YES us Rena [place] LAB BLOOD ORDERABLES Final Resul t [facility] [address] [address] [address] from Last 3 Months or Most Recently Relevant to Health Maintenance Insurance [facility] [place] [facility] [place] Adaptive Planning [place] [facility] Adaptive Planning O Advance Directives For more information, please contact: [phone] * Full Code (Latest Code Status on File) Date Activated Date Inactivated Comments 05/03/2020 11:00 AM 05/04/2020 1:51 PM Care Teams Fabric Pattern Grader Relationship Specialty Start Date End Date Rena Wakefield PA [facility] [address] [place] [address] PCP - General Critical Care Med 08/08/22 [place] [address] [address] Consulting Physician Urology 05/04/20
--- OUTSIDE RECORDS SUMMARY | 2024-10-04 18:31 | XMS_ITS | Continuity of Care Document ---
Author Organization [facility] Address [address] [place] [address] Phone Care Team Providers Care Wagon Driver Salesperson Name Role Phone Umair Nieves MD Unavailable Unavailable Procedures Procedure Date MRI, LUMBAR SPINE W/O CONTRAST INJECTION ANESTHETIC AND/OR STERIOD, TRANS EPIDURAL LUMB OR SACRAL,, SINGLE LEVE SURGICAL TRAY LOW OSMOLAR CONTRAST (200 TO 299 MG IODI NE) Triamcinolone Acetonide Injection, 10mg INJ FOR DISKOGRAPHY, EACH LEVEL; LUMBAR DISKOGRAPHY, LUMBAR, RADIOLOGICAL SUPERV ISION AND INTERPRETATION SURGICAL TRAY LOW OSMOLAR CONTRAST (200 TO 299 MG IODI NE) Advance Directives Directive Yes / No Effective Date File Name No Information Encounters Encounter Description Practice Location Reason(s) For Visit Diagnoses Date Provider Providers Copied on Encounter [facility], [address], [place], [place], [id number], [place] tel:[phone] [facility] No Information Lizbeth Block. [address], [place], [place], [id number], [place]. tel:[phone] Referring Provider: Shmuel Vargas, [address], [place], [address]. tel:[phone] [facility], [address], [place], [place], [address], [place] tel:[phone] [facility] No Information Shanel Lynch. [address], [place], [place], [address], [place]. tel:[phone] Referring Provider: Shmuel Vargas, [address], [place], [address]. tel:[phone] [facility], [address], [place], [place], [address], tel:[phone] [facility] No Information Cholodayanara Tomás. [address], [place], [place], [id number], [place]. tel:[phone] Referring Provider: Shmuel Vargas, [address], [place], [address]. tel:[phone] Family History Family Member Type Diagnosis Age At Onset No Information Payers Payer name Insurance type Covered democrat ID Authorkwamea florencio(s) [id number] [id number] Social History Type Description Quantity Date Captured Comments Sex Male Smoking Status No Information Chief Complaint And Reason For Visit No Information Reason For Referral Reason For Referral No Information History Of Present Illness Encounter Date Complaint History Of Prese nt Illness No Information Functional Status Date Functional Assessmen t No Information Instructions Date Instruction Additional Infor mation No Information Assessments Type Assessment Date No Information Patient Care Teams Name Effective Dates (start - stop) Status Members No Information
--- OUTSIDE RECORDS SUMMARY | 2024-10-04 18:31 | XMS_ITS ---
Author Organization [facility], Address [address] [place] [address] Care Team Providers Care Nuclear Control Room Operator Name Role Phone Rena Melara Primary Care Provider UnavailShmuel Rust Unavailable [phone] Justo Cooley Unavailable [phone] REASON FOR VISIT RT L2-3 Decompression Encounters Encounter Location Date Provider Diagnosis [facility] - Outpatient [address] [place] [address] 10/02/2024 Justo Cooley PLAN OF TREATMENT No Information
--- OUTSIDE RECORDS SUMMARY | 2024-10-04 18:31 | XMS_ITS | Patient Health Summary ---
Author Organization [facility] Address [address] [place] [address] Care Team Providers Care Plastics Factory Worker Name Role Phone Vanessa Stacy MD Primary Care Provider [phone] Note from [facility] [place],non-owned Affiliates and Associated Physician Practices is amultiple site organization consisting of ambulatory clinics and hospital sitesin [place], [place], [place] and [place]. This disclosure is being madepursuant to the Care Everywhere program and may not contain all information available regarding this patient. Last updated 18.[facility] Allergies * Bacitracin(Rash) -High Criticality [...] (one) capsule by mouth once daily Active Problems Problem Noted Date Diagnosed Date [...] Comments Blood Pressure 129/81 09/04/2024 1:45 PM ELECTRIC REFRIGERATOR PREPARER Pulse 101 09/04/2024 1:45 PM ELECTRIC REFRIGERATOR PREPARER Temperature 36.7 C (98 F) 03/04/2013 3:23 PM CDT Respiratory Rate 16 01/11/2022 2:08 PM CDT Oxygen Saturation 94% 09/04/2024 1:45 PM ELECTRIC REFRIGERATOR PREPARER Inhaled Oxygen Concentration - - Weight 100.8 kg (222 lb 3.2 oz) 09/04/2024 1:45 PM ELECTRIC REFRIGERATOR PREPARER Height 180.3 cm (5' 11 ) 09/04/2024 1:45 PM ELECTRIC REFRIGERATOR PREPARER Body Mass Index 30.99 09/04/2024 1:45 PM ELECTRIC REFRIGERATOR PREPARER Medical Devices Implanted Type Area Repeat Photocomposing Machine Operator Device Identifier Shelf Expiration Date Model / Serial / Lot Ams 700 Penile Implant Other (Type not listed) Description:1.5T AND 3T COND ITIONAL FOR MRI Procedures * WV LABYRINTHOTOMY(Performed 09/04/2024) Performed for Meniere's disease of right ear * WV LABYRINTHOTOMY(Performed 07/03/2024) Performed for Meniere's disease of right ear * WV LABYRINTHOTOMY(Performed 05/05/2024) Performed for Meniere's disease of right ear * WV LABYRINTHOTOMY(Performed 03/17/2024) Performed for Meniere's disease of right ear * MRI IAC WWO CONTRAST(Performed 01/03/2024) Performed for Sensorineural hearing loss (SNHL) of right ear with restricted hearing of left ear * CREATININE - POCT INTERFACED(Performed 01/03/2024) * WV LABYRINTHOTOMY(Performed 01/03/2024) Performed for Meniere's disease of right ear * WV LABYRINTHOTOMY(Performed 12/19/2023) Performed for Meniere's disease of right ear * AUDIOLOGY/TYMPANOMETRY ORDER(Performed 12/05/2023) * AUDIOLOGY/TYMPANOMETRY ORDER(Performed 05/25/2022) * WV DRAIN/INJECT LARGE JOINT/BURSA(Performed 02/28/2022) Performed for Right lateral epicondylitis * WV DRAIN/INJECT LARGE JOINT/BURSA(Performed 02/28/2022) Performed for Chronic [...] 11/05/2011) * CULTURE AEROBIC(Performed 11/05/2011) Results * WV LABYRINTHOTOMY (09/04/2024 2:14 PM ELECTRIC REFRIGERATOR PREPARER) Marshall Boucher MD - 09/04/2024 2:14 PM ELECTRIC REFRIGERATOR PREPARER Marshall Morin MD 09/04/2024 2:26 PM Procedure: [...] Morin MD PROCEDURE/MINOR LOS GICAL ORDERABLES * W[place] LABYRINTHOTOMY (07/03/2024 4:29 PM ELECTRIC REFRIGERATOR PREPARER) Marshall Boucher MD - 07/03/2024 4:29 PM ELECTRIC REFRIGERATOR PREPARER Marshall Morin MD 07/03/2024 4:36 PM Procedure: [...] Morin MD PROCEDURE/MINOR LOS GICAL ORDERABLES * WV LABYRINTHOTOMY (05/05/2024 4:27 PM CDT) Narrative Marshall [...] Morin MD PROCEDURE/MINOR LOS GICAL ORDERABLES * WV LABYRINTHOTOMY (03/17/2024 3:12 PM CDT) Narrative Marshall [...] DATE/TIME OF EXAM: 01/03/2024 5:51 PM, LOCATION [facility] INDICATION: H90.A21: Sensorineural hearing loss (SNHL) of [...] DATE/TIME OF EXAM: 01/03/2024 5:51 PM, LOCATION [facility] INDICATION: H90.A21: Sensorineural hearing loss (SNHL) of [...] - 1.30 mg/dL 01/03/2024 4:53 PM CDT [facility] eGFR 75(L) >=90 mL/min/1.7 3 m2 01/03/2024 4:53 PM CDT [facility] Blood BLOOD SPECIMEN / Unknown 01/03/2024 4:51 PM CDT 01/03/2024 4:53 PM CDT Marshall Morin MD LAB - POINT OF CARE ORDERABLES [facility] [address] [place] [address], [facility] [phone] * WV LABYRINTHOTOMY (01/03/2024 3:40 PM CDT) Marshall Boucher [...] Morin MD PROCEDURE/MINOR LOS GICAL ORDERABLES * WV LABYRINTHOTOMY (12/19/2023 2:52 PM CDT) Narrative Marshall Morin MD - 12/19/2023 2:52 PM CDT Marshall [...] * AUDIOLOGY/TYMPANOMETRY ORDER (12/05/2023 2:41 PM CDT) Sobia Love AuD - 12/05/2023 3:14 PM CDT Subjective: Russell [...] 4) Wear HPD in noise Kwame Venegas, [facility] Railcar Foreman Sobia uPente AUDIOLOGY SERVICES ORDERABLES * AUDIOLOGY/TYMPANOMETRY ORDER (05/25/2022 12:35 PM CDT) Kendra EzekielFlorida ozunaKwame - 05/25/2022 1:01 PM CDT History: Russell [...] Amplification (RT) pending medical clearance/interest. Kwame Pittman. [facility] Clinical Railcar Foreman [facility]-Department of Otolaryngology/Audiology [facility] [address] [place] [address] ([facility]) [place] [address] [place] Boris Puente AUDIOLOGY SERVICES O RDERABLES * WV DRAIN/INJECT LARGE JOINT/BURSA (02/28/2022 10:07 AM CDT) Narrative Edwin Maxwell MD - 02/28/2022 10:07 AM CDT Edwin [...] Maxwell MD PROCEDURE/MINOR SURG ICAL ORDERABLES * WV DRAIN/INJECT LARGE JOINT/BURSA (02/28/2022 10:07 AM CDT) Narrative Edwin Maxwell MD - 02/28/2022 10:07 AM CDT Edwin [...] DATE/TIME OF EXAM: 02/28/2022 8:37 AM, LOCATION [facility] INDICATION: M25.512: Pain in left shoulder ADDITIONAL CLINICAL INFORMATION: Ordering Provider Reason For Exam: Technologist Note: Additional: COMPARISON: None. FINDINGS: Four views of the left shoulder show widening of the acromioclavicular joint suggesting strain/sprain. The humeral head is seated in the glenoid. No fracture is present. Procedure Note Tomás Skinner MD - 02/28/2022 PROCEDURE: XR SHOULDER LEFT 2VW OR MORE, DATE/TIME OF EXAM: :37 AM, LOCATION [facility] INDICATION: M25.512: Pain in left shoulder ADDITIONAL [...] DATE/TIME OF EXAM: 02/28/2022 8:37 AM, LOCATION [facility] INDICATION: M25.521: Pain in right elbow ADDITIONAL [...] MORE, DATE/TIME OF EXAM: :37 AM, LOCATION [facility] INDICATION: M25.521: Pain in right elbow ADDITIONAL [...] AM Edwin Maxwell MD DIAGNOSTIC IMAGING O MIA * AUDIOLOGY/TYMPANOMETRY ORDER (02/09/2022 12:30 PM CDT) [...] hearing loss in the left ear. Speech Family And Consumer Science Professor Thresholds is in good agreement with pure [...] Low sodium diet. Everardo Chang, Ph.D., ELIZABET., [facility] Attache Director, Division of Audiology Department of Otolaryngology- Head & Neck Surgery [facility] [employer] [facility] Everardo Chang PhD AUDIOLOGY SERVICES O MIA * CT TEMPORAL BONES WO CONTRAST (02/09/2022 [...] on 02/09/2022 1:41 PM . Danny Monreal MANAGER TRADE-SLOT FLOORMAN CT ORDERAB LES * CULTURE URINE (04/23/2014 8:36 AM CDT) [facility] Culture Urine No Growth of >100 CFU/ml after 48 Hours [facility] Urine specimen (specimen) URINE SPECIMEN OBTAINED BY CLEAN CATCH PROCEDURE / Unknown 04/23/2014 8:36 AM CDT 04/24/2014 2:42 PM CDT Narrative [facility] - 04/26/2014 9:16 AM CDT TeresoSpecimen#[id number] Tereso Loc/Rm/Bed: LAB// CLN CATCH U Historical Provider LAB - MICROBIOLOG Y ORDERABLES [address] [phone] * (ABNORMAL) CBC W AUTO DIFFERENTIAL (05/15/2013 10:56 AM CDT) Only the most recent of10 resultswithin the time period is included. Pathologist [facility] WBC 9.0 3.8 - 10.8 Thousand/u L [facility]) RBC 5.39 4.20 - 5.80 Million/uL [facility]) Hemoglobin 17.0 13.2 - 17.1 g/dL [facility]) Hematocrit 50.7(H) 38.5 - 50.0 % [facility] MCV 93.9 80.0 - 100.0 fL [facility]) MCH 31.5 27.0 - 33.0 pg [facility]) MCHC 33.5 32.0 - 36.0 g/dL [facility]) RDW 13.6 11.0 - 15.0 % [facility] Platelet 180 140 - 400 Thousand/u L [facility]) Neutrophils Absolute 6021 1500 - 7800 cells/uL [facility] Lymphocyte Absolute 1989 850 - 3900 cells/uL [facility] Monocytes Absolute 819 200 - 950 cells/uL [facility]) Eosinophils Absolute 126 15 - 500 cells/uL [facility]) Basophils Absolute 45 0 - 200 cells/uL [facility]) Neutrophils % 66.9 % [facility] Lymphocytes % 22.1 % [facility] Monocytes % 9.1 % [facility]) Eosinophils % 1.4 % [facility]) Basophils % 0.5 % [facility]) Comment: Test Performed at: [facility] [address] [place] [address] JOSÉ MIGUEL PARKER DO,MPH Venous blood specimen (specimen) 05/15/2013 10:56 AM CDT 05/15/2013 10:57 AM CDT Peggy Hoyt MD LAB - HEMATOLOGY O RDERABLES [facility] ([facility]) * COMPREHENSIVE METABOLIC PANEL (05/15/2013 10:56 AM CDT) Only the most recent of5 resultswithin the time period is included. Pathologist [facility] Glucose 77 65 - 99 mg/dL [facility] ([facility]) Comment: Fasting reference interval BUN 22 7 - 25 mg/dL [facility]) Creatinine 0.92 0.60 - 1.35 mg/dL [facility]) eGFR non- 99 > OR = 60 mL/min/1. 73m2 [facility]) eGFR 114 > OR = 60 mL/min/1. 73m2 [facility]) BUN/Creatinine Ratio NOT APPLICABLE 6 - 22 (calc) [facility]) Sodium 138 135 - 146 mmol/L [facility]) Potassium 4.1 3.5 - 5.3 mmol/L [facility]) Chloride 103 98 - 110 mmol/L [facility]) CO2 25 19 - 30 mmol/L [facility]) Calcium 9.4 8.6 - 10.3 mg/dL [facility]) Protein Total 6.9 6.1 - 8.1 g/dL [facility]) Albumin 4.5 3.6 - 5.1 g/dL [facility]) Globulin 2.4 1.9 - 3.7 g/dL (calc) [facility]) Albumin/Globuli n Ratio 1.9 1.0 - 2.5 (calc) [facility]) Bilirubin Total 0.5 0.2 - 1.2 mg/dL [facility]) Alkaline Phosphatase 60 40 - 115 U/L [facility]) AST 24 10 - 40 U/L [facility]) ALT 40 9 - 46 U/L [facility]) Comment: Test Performed at: [facility] [address] [place] [address] JOSÉ MIGUEL PARKER DO,MPH Serum 05/15/2013 10:5 6 AM CDT 05/15/2013 10:57 AM CDT Peggy Hoyt MD LAB - CHEMISTRY OR DERABLES [facility]) * XR KNEE RIGHT 3VW (03/04/2013 3:40 PM CDT) Anatomical Region Laterality Modality Lower Extremity Other Impressions 03/12/2013 2:43 PM CDT Impression: No acute osseous abnormality or evidence of arthritis involving the knee. This report was dictated by Tonia Georges M.D. I, Dr. E. ISIN AKDUMAN, M.D. have personally reviewed and interpreted this [...] dictated by Tonia Georges M.D. I, Dr. E. ISIN AKDUMAN, M.D. have personally reviewed and interpreted this [...] report was dictated by Tonia Georges M.D. Dr. Amari Chiu M.D. have personally reviewed and interpreted thisexamination/study. This report was electronically signed by Amari ELDER M.D. on03/12/2013 2:44 PM . José Miguel Caledron III, MD DIAGNOSTIC IM AGING ORDERABLES * [...] (ABNORMAL) HEPATIC FUNCTION PANEL (09/25/2012 4:33 PM ELECTRIC REFRIGERATOR PREPARER) Only the most recent of5 resultswithin the time period is included. Protein Total 7.2 6.4 - 8.4 g/dL [facility] Albumin 4.4 3.6 - 5.1 g/dL [facility] Globulin 2.8 2.2 - 4.0 g/dL (calc) [facility]) Albumin/Globulin Ratio 1.6 0.9 - 2.3 (calc) [facility]) Bilirubin Total 0.3 0.2 - 1.2 mg/dL [facility] Bilirubin Direct 0.2 < OR = 0.2 mg/dL [facility] Bilirubin Indirect 0.1(L) 0.2 - 1.2 mg/dL (calc) [facility]) Alkaline Phosphatase 57 40 - 115 U/L [facility]) AST 23 10 - 40 U/L [facility]) ALT 37 9 - 60 U/L [facility]) Comment: Test Performed at: [facility] [address] [place] [address] JOSÉ MIGUEL PARKER DO,MPH Venous blood specimen (specimen) 09/25/2012 4:33 PM ELECTRIC REFRIGERATOR PREPARER 09/25/2012 4:34 PM ELECTRIC REFRIGERATOR PREPARER Peggy Hoyt MD LAB - CHEMISTRY OR DERABLES [facility] ([facility]) * (ABNORMAL) CULTURE AEROBIC (06/28/2012 1:00 PM ELECTRIC REFRIGERATOR PREPARER) Only the most recent of5 resultswithin the time period is included. Culture SEE NOTE(A) [facility] ([facility]) Comment: CULTURE, AEROBIC BACTERIA MICRO NUMBER: [id number] TEST STATUS: FINAL SPECIMEN SOURCE: SKIN SPECIMEN [...] INCORRECT, PLEASE CONTACT CLIENT SERVICES. PHONE NUMBER: [phone] Test Performed at: [facility] [address] [place] [address] JOSÉ MIGUEL PARKER DO [facility] Skin (tissue) specimen (specimen) (Unspecified) 06/28/2012 1:00 PM ELECTRIC REFRIGERATOR PREPARER 06/26/2012 12:39 AM ELECTRIC REFRIGERATOR PREPARER Narrative [facility]) - 06/28/2012 1:00 PM ELECTRIC REFRIGERATOR PREPARER Specimen Type->Skin Peggy Hoyt MD LAB - MICROBIOLOGY ORDERABLES Performing Organization Address [facility] [[email or web address]] de Phone Number [facility]) * HEPATITIS SCREEN ACUTE (06/25/2012 4:12 PM ELECTRIC REFRIGERATOR PREPARER) Hepatitis A Virus Antibody IgM NON-REACTI VE NON-REACT [facility]) Comment: Test Performed at: [facility] [address] [place] [address] JOSÉ MIGUEL PARKER DO,MPH Hepatitis B Virus Surface Antigen NON-REACTI VE NON-REACT [facility]) Hepatitis B Core Virus Antibody IgM NON-REACTI VE NON-REACT [facility]) Hepatitis C Antibody NON-REACTI VE NON-REACT [facility]) Signal/Cutoff 0.02 <1.00 [facility]) 06/25/2012 4:12 PM ELECTRIC REFRIGERATOR PREPARER 06/25/2012 4:13 PM ELECTRIC REFRIGERATOR PREPARER Peggy Hoyt MD LAB - CHEMISTRY OR DERABLES Performing Organization Address [facility] [[email or web address]] de Phone Number [facility]) * CULTURE FUNGUS SKIN HAIR NAILS (11/27/2011 7:00 AM CDT) Culture Fungus SEE NOTE [facility]) Comment: CULTURE, FUNGUS, SKIN, HAIR OR NAILS MICRO NUMBER: [id number] TEST STATUS: FINAL SPECIMEN SOURCE: NECK SPECIMEN QUALITY: ADEQUATE RESULT: No fungal growth at 4 Weeks NO COLLECTION DATE RECEIVED. WE HAVE USED THE DATE THE SPECIMEN WAS RECEIVED BY THIS LABORATORY THE COLLECTION DATE. IF THIS IS INCORRECT, PLEASE CONTACT CLIENT SERVICES. PHONE NUMBER: [phone] Test Performed at: [facility] [address] [place] [address] JOSÉ MIGUEL PARKER DO ENTIRE NECK / Unknown 11/27/2011 7:00 AM CDT 11/02/2011 11:53 PM CDT Narrative [facility]) - 11/27/2011 7:00 AM CDT Preferred Lab:->[facility] Ed Farmer MD LAB - MICROBIOLOGY O RDERABLES [facility] ([facility]) Care Teams Plastics Factory Worker Relationship Specialty Start Date End Date Vanessa Stacy MD [address] [facility] [address] [place] [address] PCP - General 08/16/22
--- OUTSIDE RECORDS SUMMARY | 2024-10-04 18:31 | XMS_ITS ---
Author Organization [facility] Address [address] [facility] [address] [place] [address] Care Team Providers Care Crabber Name Role Phone Rena Melara Primary Care Provider UnavailShmuel Rust Unavailable [phone] Arlyn Cr Unavailable [phone] REASON FOR VISIT PO Decompression Encounters Encounter Location Date Provider Diagnosis [facility], [address] [place] [address] 09/29/2024 Arlyn Cr PLAN OF TREATMENT No Information
--- OUTSIDE RECORDS SUMMARY | 2024-10-04 18:31 | XMS_ITS | Patient Health Record ---
Author Organization [facility] Address [address] [place] [address] Care Team Providers Care Cutting And Creasing Press Operator Name Role Phone Rena Chambers Primary Care Provider Unavailab shabbir AMARAL MD, RAY Unavailable [phone] REASON FOR REFERRAL No Information PLAN OF TREATMENT No Information Insurance Providers Payer Name Payer Address Payer Phone Subscriber Number Group Number Insured Name Patient Relationship to Insured Coverage Start Date Coverage End Date [facility] PPO [address] [place], [place] [id number] Russell Jeronimo Self - patient is the insured for Life - Medicare Sup [address] [place], [place] [id number] Russell Jeronimo Self - patient is the insured
--- OUTSIDE RECORDS SUMMARY | 2024-10-04 18:31 | XMS_ITS | Referral Summary ---
Author Organization [facility] Address [address] [place] [address] Care Team Providers Care Band Director Name Role Phone Vanessa Stacy MD Primary Care Provider Source Comments [facility],non-owned Affiliates and Associated Physician Practices is amultiple site organization consisting of ambulatory clinics and hospital sitesin [place], [place], [place] and [place]. This disclosure is being madepursuant to the Care Everywhere program and may not contain all information available regarding this patient. Last updated 18.[facility] Encounters Date Type Department Care Team Description 09/04/2024 Travel 09/04/2024 2:00 PM SURGICAL INSTRUMENT MAKER Office Visit [facility] - [facility] [place] [id number] Marshall Morin MD Meniere's disease of right ear (Primary Dx); Migraine variant; Dizziness; Vestibular migraine; Sensorineural hearing loss (SNHL) of right ear with restricted hearing of left ear from Last 3 Months Allergies Active Allergy [...] tablet by mouth once daily 12/21/2023 Active triamterene-hydroCHL OROthiazide (Maxzide-25) 37.5-25 MG tablet Take 1 (one) [...] capsule by mouth once daily 09/03/2024 Active Active Problems Problem Noted Date Diagnosed Date Degeneration of cervical intervertebral disc 03/2022 Fear of injections and transfusions 02/28/2022 Lumbosacral spondylosis without myelopathy 02/28 Abnormal sexual function 02/28/2022 Overview (02/28/2022): Austin I: 300.04 Dysthymic Disorder Austin II: No Diagnosis Austin III: HTN Austin IV: chronic marital discord Austin V; GAF: 68 Arthropathy of knee 02/28/2022 [...] (02/28/2022): Added automatically from request for surgery [id number] Hypercholesteremia 04/25/2018 Overview (02/28/2022): Last Assessment & [...] eczema 01/31/2012 Venous insufficiency (chronic) (peripheral) 09/2011 Cutaneous abscess 11/02/2011 Follicular disorder 11/02/2011 Irritant contact dermatitis 11/02/2011 Resolved Problems Problem Noted Date Diagnosed Date Resolved Date Acute pharyngitis 02/28/2022 03/14/2022 Pneumonia 02/28/2022 03/28/2022 Immunizations Name Administration Dates Next Due Covid [employer] primary monoval ent 12+ yr 0.3mL Purple [...] Comments Blood Pressure 129/81 09/04/2024 1:45 PM SURGICAL INSTRUMENT MAKER Pulse 101 09/04/2024 1:45 PM SURGICAL INSTRUMENT MAKER Temperature 36.7 C (98 F) 03/04/2013 3:23 PM CDT Respiratory Rate 16 01/11/2022 2:0 8 PM CDT Oxygen Saturation 94% 09/04/2024 1:45 PM SURGICAL INSTRUMENT MAKER Inhaled Oxygen Concentration - - Weight 100.8 kg (222 lb 3.2 oz) 09/04/2024 1:45 PM SURGICAL INSTRUMENT MAKER Height 180.3 cm (5' 11 ) 09/04/2024 1:45 PM SURGICAL INSTRUMENT MAKER Body Mass Index 30.99 09/04/2024 1:45 PM SURGICAL INSTRUMENT MAKER Plan of Treatment Upcoming Encounters Date Type Department Care Team (Late st Contact Info) Description 12/11/2024 2:30 PM CDT Office Visit [facility] - ENT [address] [place] [phone] Marshall Morin MD [address] [place] [address] [place] [address] Medical Devices Implanted Type Area Polishing Wheel Setter Device Identifier Shelf Expiration Date Model / Serial / Lot Ams 700 Penile Implant Other (Type not listed) Description:1.5T AND 3T COND ITIONAL FOR MRI Procedures Procedure Name Priority Date/Time Associated Diagnosis Comments ND LABYRINTHOTOMY Routine 09/04/2024 2:1 4 PM SURGICAL INSTRUMENT MAKER Meniere's disease of right ear CREATININE - POCT INTERFACED Routine 01/03/2024 4:51 PM CDT HEPATITIS SCREEN ACUTE Routine 2 4:12 PM SURGICAL INSTRUMENT MAKER from Last 3 Months or Most Recently Relevant to Health Maintenance Results * ND LABYRINTHOTOMY (09/04/2024 2:14 PM SURGICAL INSTRUMENT MAKER) Narrative Marshall Morin MD - 09/04/2024 2:14 PM SURGICAL INSTRUMENT MAKER Marshall Morin MD 09/04/2024 2:26 PM Procedure: [...] - 1.30 mg/dL 01/03/2024 4:53 PM CDT [facility] eGFR 75(L) >=90 mL/min/1.7 3 m2 01/03/2024 4:53 PM CDT [facility] Blood BLOOD SPECIMEN / Unknown 01/03/2024 4:51 PM CDT 01/03/2024 4:53 PM CDT Marshall Morin MD LAB - POINT OF CARE ORDERABLES [facility] [address] [place] [address], [facility] [phone] * HEPATITIS SCREEN ACUTE (06/25/2012 4:12 PM SURGICAL INSTRUMENT MAKER) Hepatitis A Virus Antibody IgM NON-REACTI VE NON-REACT [facility]) Comment: Test Performed at: [employer] [address] [place] [address] JOSÉ MIGUEL PARKER DO,MPH Hepatitis B Virus Surface Antigen NON-REACTI VE NON-REACT [facility]) Hepatitis B Core Virus Antibody IgM NON-REACTI VE NON-REACT [facility]) Hepatitis C Antibody NON-REACTI VE NON-REACT [facility]) Signal/Cutoff 0.02 <1.00 [facility]) 06/25/2012 4:12 PM SURGICAL INSTRUMENT MAKER 06/25/2012 4:13 PM SURGICAL INSTRUMENT MAKER Peggy Hoyt MD LAB - CHEMISTRY OR DERABLES [facility]) from Last 3 Months or Most Recently Relevant to Health Maintenance Care Teams Band Director Relationship Specialty Start Date End Date Vanessa Stacy MD [address] [place] [address] PCP - General 08/16/22
--- OUTSIDE RECORDS SUMMARY | 2024-10-04 18:31 | XMS_ITS | Patient Health Record ---
Author Organization [facility] , Address [address] [place] [address] Care Team Providers Care Nut Cracker Name Role Phone Rena Melara Primary Care Provider UnavailShmuel Rust Unavailable [phone] Justo Cooley Unavailable [phone] Arlyn Cr Unavailable [phone] ALLERGIES Allergen (clinical drug ingredient) Drug/Non Drug [...] Displacement of lumbar intervertebral disc without myelopathy (58407156) Problem Lumbar stenosis with neurogenic claudication (M48.062) Active confirmed Neurogenic claudication (446944732) Problem Lumbar radiculopathy (M54.16) Active confirmed Lumbar radiculopathy (747247329) Problem Spondylolisthesis of lumbar region (M43.16) Active confirmed Acquired spondylolisthesis (927137510) Problem Facet degeneration of lumbar region (M47.816) Active confirmed Lumbosacral spondylosis without myelopathy (98433901) Problem Disc displacement, lumbar (M51.26) Active confirmed Displacement of lumbar intervertebral disc without myelopathy (80596305) Problem Low back pain of multiple sites of spine with sciatica (M54.40) Active confirmed Sciatica (92249803) VITAL SIGNS Height 70 in 08/21/2024 Weight 216 lbs 08/21/2024 BMI 30.99 kg/m2 08/21/2024 PROCEDURES Procedure Date Ordered Date Performed Result Body Sit e Lumbar Transforaminal Epidur al Steroid Injection 05/21/2024 05/21/2024 completed Lumbar Decompression 08/21/2024 09/11/2024 approved Encounters Encounter Location Date Provider Diagnosis [facility] [address] [place] [address] 09/29/2024 Arlyn Cr [facility] [address] [facility] [address] [place] [address] 10/31/2023 Arlyn Vandergriff Lumbar radiculopathy M54.16 and Disc displacement, lumbar M51.26 [facility] [address] [place] [address] 05/27/2024 Arlyn Cr [facility] [address] [place] [address] 05/27/2024 Arlyn Cr [facility] [address] [place] [address] 05/21/2024 Arlyn Cr Lumbar radiculopathy M54.16 and Other low back pain M54.59 [facility] [address] [address] 08/21/2024 Shmuel Vargas Lumbar stenosis with neurogenic claudication M48.062 [facility] - Outpatient [address] [place] [address] 09/18/2024 [facility] - Outpatient [address] [place] [address] 09/18/2024 Shmuel Vargas [facility] - Outpatient [address] [place] [address] 10/02/2024 [facility] [address] [place] [address] 10/02/2024 Shmuel Vargas [facility] [address] [address] 06/10/2024 Shmuel Vargas [facility] [address] [address] 07/09/2024 Shmuel Vargas [facility] [address] [place] [address] 07/24/2024 Shmuel Vargas Lumbar radiculopathy M54.16 [facility] [address] [place] [address] 08/04/2024 Shmuel Vargas [facility] [address] [place] [address] 08/06/2024 Shmuel Vargas [facility] [address] [place] [address] 08/21/2024 Shmuel Vargas Lumbar stenosis with neurogenic claudication M48.062 [facility] [address] [place] [address] 09/03/2024 Shmuel Vargas [facility] [address] [place] [address] 09/10/2024 Shmuel Vargas [facility] [address] [place] [address] 09/16/2024 Shmuel Vargas [facility] [address] [place] [address] 09/25/2024 Shmuel Vargas ASSESSMENTS Encounter Date Diagnosis Assessment [...] Decompression and Transforminal I nterbody Fusion 09/21/2021 Insurance Providers Payer Name Payer Address Payer Phone Subscriber Number Group Number Insured Name Patient Relationship to Insured Coverage Start Date Coverage End Date Sherita Carranza [address] [place] [address] [phone] [id number] Russell Jeronimo Self - patient is the insured [facility] [address] [place] [address] [id number] Kandace Russell Self - patient is the insured MEDICAL (GENERAL) HISTORY Medical History History ICD Code Hypertension IBS Diabetes Surgical History Surgery Date(Month/Year) L4-S1 Fusions 10/13/21 Hospitalization History Reason Date(Month/Year) As per above.
--- OUTSIDE RECORDS SUMMARY | 2024-10-04 18:31 | XMS_ITS ---
Author Organization [facility] Address [address] [place] [address] Care Team Providers Care In File Operator Name Role Phone Rena Melara Primary Care Provider Shmuel Brambila Unavailable [phone] REASON FOR VISIT RT L2-3 Decompression Encounters Encounter Location Date Provider Diagnosis [facility] - Outpatient [address] [place] [address] 10/02/2024 Shmuel Vargas PLAN OF TREATMENT No Information
--- OUTSIDE RECORDS SUMMARY | 2024-10-04 18:31 | XMS_ITS | Clinical Summary ---
Author Organization [facility] Address [address] [place] [address] Care Team Providers Care Regional Tanker Truck Driver Name Role Phone Vanessa Stacy MD Primary Care Provider Source Comments [facility],non-owned Affiliates and Associated Physician Practices is amultiple site organization consisting of ambulatory clinics and hospital sitesin [place], [place], [place] and [place]. This disclosure is being madepursuant to the Care Everywhere program and may not contain all information available regarding this patient. Last updated 18.[facility] Allergies Active Allergy Reactions Criticality Noted Date [...] 02/28 Abnormal sexual function 02/28/2022 Overview (02/28/2022): Dudley I: 300.04 Dysthymic Disorder Dudley II: No Diagnosis Dudley III: HTN Dudley IV: chronic marital discord Dudley V; GAF: 68 Arthropathy of knee 02/28/2022 [...] (02/28/2022): Added automatically from request for surgery [id number] Hypercholesteremia 04/25/2018 Overview (02/28/2022): Last Assessment & [...] Department Care Team Description 09/04/2024 2:00 PM GIVER Office Visit [facility] [address] [place] [address] Marshall Morin MD Meniere's disease of right ear (Primary Dx); Migraine variant; Dizziness; Vestibular migraine; Sensorineural hearing loss (SNHL) of right ear with restricted hearing of left ear 09/04/2024 Travel from Last 3 Months Immunizations Name Administration Dates Next Due Covid Pfizer primary monoval ent 12+ yr 0.3mL Purple [...] Comments Blood Pressure 129/81 09/04/2024 1:45 PM GIVER Pulse 101 09/04/2024 1:45 PM GIVER Temperature 36.7 C (98 F) 03/04/2013 3:23 PM CDT Respiratory Rate 16 01/11/2022 2:08 PM CDT Oxygen Saturation 94% 09/04/2024 1:45 PM GIVER Inhaled Oxygen Concentration - - Weight 100.8 kg (222 lb 3.2 oz) 09/04/2024 1:45 PM GIVER Height 180.3 cm (5' 11 ) 09/04/2024 1:45 PM GIVER Body Mass Index 30.99 09/04/2024 1:45 PM GIVER Plan of Treatment Upcoming Encounters Date Type Department Care Team (Late st Contact Info) Description 12/11/2024 2:30 PM CDT Office Visit [facility] - ENT [address] [place] [phone] Marshall Morin MD [address] [place] [address] [place] [address] Health Maintenance Due Date Last Done Comments [...] complete this topic MENINGOCOCCAL (Group B) VACCINE SHARED DECISION-MAKING Aged Out No longer eligible based on patient's age to complete this topic MENINGOCOCCAL GROUPS A/C/Y/W VACCINE Aged Out No longer eligible based on patient's age to complete this topic Medical Devices Implanted Type Area House Director Device Identifier Shelf Expiration Date Model / Serial / Lot Ams 700 Penile Implant Other (Type not listed) Description:1.5T AND 3T COND ITIONAL FOR MRI Procedures Procedure Name Priority Date/Time Associated Diagnosis Comments NM LABYRINTHOTOMY Routine 09/04/2024 2:1 4 PM GIVER Meniere's disease of right ear CREATININE - POCT INTERFACED Routine 01/03/2024 4:51 PM CDT HEPATITIS SCREEN ACUTE Routine 2 4:12 PM GIVER from Last 3 Months or Most Recently Relevant to Health Maintenance Results * NM LABYRINTHOTOMY (09/04/2024 2:14 PM GIVER) Narrative Marshall Morin MD - 09/04/2024 2:14 PM GIVER Marshall Morin MD 09/04/2024 2:26 PM Procedure: [...] - 1.30 mg/dL 01/03/2024 4:53 PM CDT [facility] eGFR 75(L) >=90 mL/min/1.7 3 m2 01/03/2024 4:53 PM CDT [facility] Blood BLOOD SPECIMEN / Unknown 01/03/2024 4:51 PM CDT 01/03/2024 4:53 PM CDT Marshall Morin MD LAB - POINT OF CARE ORDERABLES [facility] [address] [place] [address], [facility] [phone] * HEPATITIS SCREEN ACUTE (06/25/2012 4:12 PM GIVER) Hepatitis A Virus Antibody IgM NON-REACTI VE NON-REACT [facility] ([facility]) Comment: Test Performed at: [facility] [address] [place] [address] JOSÉ MIGUEL PARKER DO,MPH Hepatitis B Virus Surface Antigen NON-REACTI VE NON-REACT [facility] ([facility]) Hepatitis B Core Virus Antibody IgM NON-REACTI VE NON-REACT [facility] ([facility]) Hepatitis C Antibody NON-REACTI VE NON-REACT [facility] ([facility]) Signal/Cutoff 0.02 <1.00 [facility] ([facility]) 06/25/2012 4:12 PM GIVER 06/25/2012 4:13 PM GIVER Peggy Hoyt MD LAB - CHEMISTRY OR DERABLES [facility] ([facility]) from Last 3 Months or Most Recently Relevant to Health Maintenance Care Teams Regional Tanker Truck Driver Relationship Specialty Start Date End Date Vanessa Stacy MD [address] [place] [address] PCP - General 08/16/22
[2024-10-04 18:54] LABS: Basophils Absolute Auto 0.1 K/mm3 (0.0-0.1); Basophils Percent Auto 0.8 % (0.2-1.2); Eosinophils Percent Auto 0.2 % (0-4.4); Hematocrit 55.6 % (42.0-52.0); Hemoglobin 19.2 g/dL (14.0-18.0); Immature Granulocyte Absolute 0.27 K/mm3 (0.00-0.031); Immature Granulocyte Percent A 3.1 % (0-0.5); Immature Platelet Fraction Pct 5.3 % (0.9-11.2); Lymphocytes Percent Auto 2.3 % (18.3-44.2); Mean Corpuscular HGB Conc 34.5 g/dl (32-36); Mean Corpuscular Hemoglobin 30.6 pg (26-34); Mean Corpuscular Volume 88.5 fl (80-100); Mean Platelet Volume 11.1 fl (7.4-10.4); Monocytes Absolute Auto 0.5 K/mm3 (0.1-0.6); Monocytes Percent Auto 5.5 % (2.6-8.5); Neutrophils Absolute Auto 7.8 K/mm3 (1.3-6.7); Neutrophils Percent Auto 88.1 % (45.5-73.1); Platelet Count Result 129 k/mm3 (150-375); Red Blood Count 6.28 M/mm3 (4.6-6.20); Red Cell Distribution Width 12.8 % (11.5-14.5); White Blood Count 8.8 K/mm3 (4.5-10.0)
[2024-10-04 19:02] LABS: Alanine Aminotransferase 33 U/L (6-50); Albumin Level 4.1 g/dL (3.5-5.1); Alkaline Phosphatase 79 U/L (38-126); Anion Gap 18 mmol/L (4-12); Aspartate Amino Transferase 25 U/L (17-59); Bilirubin,Total 0.9 mg/dL (0.2-1.3); Blood Urea Nitrogen 30 mg/dL (9-20); Calcium 8.4 mg/dL (8.4-10.2); Carbon Dioxide 16 mmol/L (22-30); Chloride 100 mmol/L (98-107); Estimated CRCL calculation 79 ml/min; Estimated Glomerular Filt Rate > 60; Glucose 190 mg/dL (65-110); Lipase 23 U/L (23-300); Potassium 4.5 mmol/L (3.4-5.0); Sodium 134 mmol/L (137-145)
[2024-10-04 19:06] LABS: INR 1.1; Prothrombin Time 14.7 Seconds (11.1-14.7)
[2024-10-04 19:07] LABS: Partial Thromboplastin Time 27.6 Seconds (22.3-36.8)
[2024-10-04 19:14] LABS: Troponin I < 0.012 ng/mL (0.000-0.034)
--- NOTE | 2024-10-04 19:57 | ED_ITS ---
HPI - General Adult General Chief complaint: Nausea/Vomiting/Diarrhea Stated complaint: N/V,TACHYCARDIA Time Seen by Provider: 10/04/24 19:54 Source: patient and family () Mode of arrival: ambulatory Limitations: no limitations History of Present Illness HPI narrative: Patient presents with complaint of chest pain, nausea, and vomiting as well as weakness described as lethargy. At the time of my assessment he states that his nausea, vomiting, and chest pain are all now better but does still feel weak and he has a headache, the latter is his chief complaint at this time. He states that he had been short of breath in the past. has been sick with a stomach bug 3 days ago but is feeling much better. No other household members and he reports that they have a carbon monoxide ade that was replaced somewhat recently. His headache is bilateral at the front. He denies any eye pain, photophobia, or phonophobia. No fevers, chills, or cough. His last oral intake was last night he does not currently have an appetite. He has some erythema from the medial aspect of his right lower extremity. He notes a 7 home problem with his right lower extremity that included a stress fracture for which he wore a walking boot for a while seen multiple providers in specialists including podiatry. Notes that he here at the hospital last week for rule out DVT. He has seen a manager communication once previously for episodes of dizziness but does not follow with them regularly. That workup was deemed to be attributed due to over-medication and after her some medications were changed around his dizziness improved. No trauma. No anticoagulation than aspirin. Cardiac risk factors: Hypertension + (though missed doses of medication due to symptoms). No hyperlipidemia. Patient not obese. Nonsmoker. No personal history of myocardial infarction, TIA, or CVA. Non insulin-dependent diabetes mellitus +. Mother's side of the family (though not her specifically) had heart disease but no first degree relatives with OR <65yo. Related Data Home Medications ?Medication ?Instructions ?Recorded ?Confirmed ?Last Taken ?Type triamterene 37.5 1 tablet PO DAILY 03/20/24 10/04/24 Unknown History mg-hydrochlorothiazide 25 mg tablet vilazodone 10 mg tablet 10 mg PO DAILY 03/20/24 03/20/24 Unknown History buspirone 10 mg tablet mg 10/02/24 Unknown History montelukast 10 mg tablet mg 04/23/24 Unknown History nebivolol 20 mg tablet mg 07/26/24 Unknown History semaglutide 7 mg tablet (Rybelsus) mg PO 07/26/24 Unknown History cyclobenzaprine 10 mg tablet mg 09/08/24 Unknown History diclofenac sodium 50 mg mg PO 09/08/24 Unknown History tablet,delayed release metformin 500 mg tablet,extended mg PO 09/08/24 Unknown History release 24 hr tamsulosin 0.4 mg capsule mg PO 09/08/24 Unknown History aspirin 81 mg tablet,delayed 81 mg PO DAILY 10/04/24 10/04/24 Unknown History release (Adult Aspirin Regimen) atorvastatin 40 mg tablet mg 10/04/24 Unknown History dicyclomine 10 mg capsule mg 10/04/24 Unknown History empagliflozin 25 mg tablet mg 10/04/24 Unknown History (Jardiance) guaifenesin 400 mg tablet mg PO 10/04/24 Unknown History lisinopril 40 mg tablet mg 10/04/24 Unknown History nebivolol 10 mg tablet mg 10/04/24 Unknown History nortriptyline 50 mg capsule mg 10/04/24 Unknown History Allergies Allergy/AdvReac Type Severity Reaction Status Date / Time cephalexin Allergy Mild Rash Verified 10/04/24 20:09 ketorolac Allergy Mild Hives Verified 10/04/24 20:09 bacitracin Allergy Unknown Unknown Verified 10/04/24 20:09 [facility] Past Medical History Medical History Hypertension Knee pain, chronic Type 2 diabetes mellitus non insulin dependent Hyperlipidemia Chronic sinusitis Surgical History Surgical History H/O wrist surgery Hx of appendectomy H/O sinus surgery Family History Family History Mother Hypertension Family history of malignant neoplasm Family history of diabetes mellitus in first degree relative Family history of heart disease in male family member before age 55 Diabetes mellitus Sibling Hypertension Family history of malignant neoplasm Diabetes mellitus Social History Social History Smoking status: Former smoker Alcohol intake: current Gender identity (if verbalized by the patient): Male Exam 2 Narrative: GENERAL: Well-appearing, well-nourished, and in no acute distress. HEAD: Normocephalic, atraumatic. EYES: Non injected, non icteric. PERRL. ENT: Nares clear, no rhinorrhea or epistaxis. NECK: Supple. Full range of motion. No meningismus. CHEST: Speaking in full sentences. No respiratory distress. HEART: Tachycardic rate and rhythm. . ABDOMEN: Soft, nondistended. EXTREMITIES: Normal range of motion. Area of nondiscrete erythema and warmth along the medial aspect of right lower extremity particularly near the medial malleolus. There is also an area of erythema and warmth along the lateral malleolus of this extremity but also with some associated ecchymosis. SKIN: Warm, dry. No petechiae. BACK: No ecchymosis, lacerations, contusions, abrasions NEURO: No focal deficits. Alert and oriented x3. Speaks clearly without aphasia or dysarthria. No abnormal movements appreciated. Answering questions appropriately. Following commands. Moving all extremities x4. PSYCH: Normal mood and affect. Course Vital Signs Vital signs: Vital Signs Temperature 98.9 F 10/04/24 18:35 Pulse Rate 145 H 10/04/24 18:35 Respiratory Rate 20 10/04/24 18:35 Blood Pressure 141/86 H 10/04/24 18:35 Pulse Oximetry 96 10/04/24 18:35 Oxygen Delivery Room Air 10/04/24 18:35 Temperature 98.9 F 10/04/24 18:35 Pulse Rate 116 H 10/04/24 23:16 Respiratory Rate 20 10/04/24 23:16 Blood Pressure 137/68 10/04/24 23:16 Pulse Oximetry 96 10/04/24 23:16 Oxygen Delivery Room Air 10/04/24 20:16 Medical Decision Making MDM Narrative Medical decision making narrative: Patient presents initially with complaint chest pain, nausea, and vomiting although the symptoms are better now. He is also complaining of weakness and increased fatigue as well as a headache. Shortness of breath in the past. Was also found to have erythema and warmth and tenderness to palpation the right lower extremity where he has been dealing with a stress fracture status post walking boot various assessments including by Podiatry with a recent DVT rule out within the past week. In the emergency department he has vital signs notable for tachycardia at 145 beats per minute. His blood pressure is acceptable. 1L IV fluids ordered. He has a mild thrombocytopenia with no prior for comparison. His hemoglobin and hematocrit are also elevated, likely hemoconcentrated, again with no prior for comparison though. In regards to the chest pain - HEART SCORE History 2 highly suspicious 1 moderately suspicious 0 slightly suspicious History score [address] depression/elevation not due to LBBB, LVH, or digoxin [address] depression but LBBB, LVH, nonspecific repolarization changes 0 normal ECG score 0 Age 2 >/= 65 1 45-64 0 <45 Age score 1 Risk factors (HTN, hypercholesterolemia, DM, obesity with BMI >30, current smoker or cessation </=3mo), positive fam hx with parent or sibling with CVD before age 65, atherosclerotic disease (prior OR, PCI/CABG, CVA/TIA, or peripheral arterial disease) 2 >/= 3 risk factors or history of atherosclerotic dz 1 - 1-2 risk factors 0 no known risk factors Risk factor score 1 (HTN, DM) Initial Troponin 2 >3 times normal limit 1 1-3 times normal limit 0 less than or equal to normal limit Troponin score 0 Total HEART Score 2. Dimer greater than 1 so will proceed with CTA. After obtaining the patient's history and performing a physical exam, the headache is most likely due to benign etiology. The extensive neurological examination is non-focal, there are no high-risk features on history, vital signs are stable, and the patient is non-toxic appearing. The Ddx for the patient's headache is tension headache, migraine, or other headache of non- emergent etiology. Unlikely SAH: headache is non-thunderclap. Headache is gradual, non-maximal at onset Unlikely subdural/epidural hematoma: no history of trauma, no anticoagulation Unlikely meningitis: afebrile, no meningismus, no photophobia Unlikely temporal arteritis: pt <60 years old. Unlikely acute angle glaucoma: PERRL, no eye pain Unlikely carbon monoxide poisoning: no other house members with similar symptoms at this time and has a carbon monoxide ade/detector The patient's headache was treated symptomatically with acetaminophen ( ketorolac allergy - hives - listed), benadryl compazine and magnesium. Patient does appear to have cellulitis on the right lower extremity, primarily along the medial aspect but also to a lesser degree along the lateral aspect. It is warm and tender in these areas with and non distinct spread. POCUS also performed which shows classic cobblestoning edema in this area. Clindamycin ordered. Repeat troponin normal. Upon reevaluation, he states his headache is resolved and he is feeling better. He is given 1 time dose of a steroid to reduce the likelihood of bounce- back/rebound headache. Dexamethasone is chosen given history DM and has been on steroid courses before in the past few months. He remains mildly tachycardic (has approximately 500cc IV fluids to still infuse) but greatly improved at 111bpm at bedside and notably have assessed for PE and checked TSH levels. He will be discharged with strict return precautions and instructions to follow up with their PCP in the next 2-3 days. Provided prescriptions for [id number] analgesics medications, short course of ondansetron if nausea/vomiting recurs, and the rest of course antibiotic Differential Diagnosis Differential Diagnosis: Acute viral syndrome ACS biliary colic pulmonary embolism Vital Signs Vital Signs: Vital Signs Temperature 98.9 F 10/04/24 18:35 Pulse Rate 145 H 10/04/24 18:35 Respiratory Rate 20 10/04/24 18:35 Blood Pressure 141/86 H 10/04/24 18:35 Pulse Oximetry 96 10/04/24 18:35 Oxygen Delivery Room Air 10/04/24 18:35 Temperature 98.9 F 10/04/24 18:35 Pulse Rate 116 H 10/04/24 23:16 Respiratory Rate 20 10/04/24 23:16 Blood Pressure 137/68 10/04/24 23:16 Pulse Oximetry 96 10/04/24 23:16 Oxygen Delivery Room Air 10/04/24 20:16 Lab Data Lab results reviewed: Yes I reviewed the patient's lab results. Lab results narrative: TSH within normal limits 10/04/24 18:44 10/04/24 18:44 Labs: Lab Results 10/04/24 10/04/24 10/04/24 Range/Units 18:44 20:09 22:20 WBC 8.8 (4.5-10.0) K/mm3 RBC 6.28 H (4.6-6.20) M/mm3 Hgb 19.2 H (14.0-18.0) g/dL Hct 55.6 H (42.0-52.0) % MCV 88.5 (80-100) fl MCH 30.6 (26-34) pg MCHC 34.5 (32-36) g/dl RDW 12.8 (11.5-14.5) % Plt Count 129 L (150-375) k/mm3 MPV 11.1 H (7.4-10.4) fl Immature Gran % (Auto) 3.1 H (0-0.5) % Neut % (Auto) 88.1 H (45.5-73.1) % Lymph % (Auto) 2.3 L (18.3-44.2) % Butts % (Auto) 5.5 (2.6-8.5) % Eos % (Auto) 0.2 (0-4.4) % Baso % (Auto) 0.8 (0.2-1.2) % Lymph # (Auto) 0.20 L (0.9-3.2) K/mm3 Butts # (Auto) 0.5 (0.1-0.6) K/mm3 Eos # (Auto) 0.0 (0-0.3) K/mm3 Baso # (Auto) 0.1 (0.0-0.1) K/mm3 Abs Immat Gran (auto) 0.27 H (0.00-0.031) K/mm3 Absolute Neuts (auto) 7.8 H (1.3-6.7) K/mm3 Absolute Nucleated RBC 0.000 (0.0-0.012) K/mm3 Nucleated RBC % 0.0 (0.0-0.2) % % Immature Plt Fraction 5.3 (0.9-11.2) % PT 14.7 (11.1-14.7) Seconds INR 1.1 APTT 27.6 (22.3-36.8) Seconds D-Dimer 1.15 H (<0.48) ug/mL Sodium 134 L (137-145) mmol/L Potassium 4.5 (3.4-5.0) mmol/L Chloride 100 (98-107) mmol/L Carbon Dioxide 16 L (22-30) mmol/L Anion Gap 18 H (4-12) mmol/L BUN 30 H (9-20) mg/dL Creatinine 0.95 (0.7-1.3) mg/dL Estim Creat Clear Calc 79 ml/min Estimated GFR > 60 (59 - ) Glucose 190 H (65-110) mg/dL Calcium 8.4 (8.4-10.2) mg/dL Total Bilirubin 0.9 (0.2-1.3) mg/dL AST 25 (17-59) U/L ALT 33 (6-50) U/L Alkaline Phosphatase 79 (38-126) U/L Troponin I < 0.012 < 0.012 (0.000-0.034) ng/mL Total Protein 7.0 (6.3-8.2) g/dL Albumin 4.1 (3.5-5.1) g/dL Lipase 23 (23-300) U/L TSH 0.541 (0.465-4.680) uIU/mL Influenza A (RT-PCR) Negative (Negative) Influenza B (RT-PCR) Negative (Negative) RSV (RT-PCR) Negative (Negative) SARS-CoV-2 RNA (RT-PCR) Negative (Negative) Imaging Data Radiologist's impression: Impressions Chest X-Ray 10/04/24 19:35 IMPRESSION: No acute cardiopulmonary process. Chest CTA 10/04/24 21:19 IMPRESSION: No CT evidence of acute pulmonary embolus. No acute process detected in the chest. ECG Data EKG #1: Attestation: I personally reviewed and interpreted this ECG as follows: ECG completion date: 10/04/24 ECG completion time: 18:33 Interpretation: Sinus tachycardia at a rate of 144 beats per minute. ND interval 118. QRS 92. QT/QTC 269/352. Good R-wave progression across the precordial leads. No T-wave inversions. Discharge Plan Discharge Clinical Impression: Thrombocytopenia, Elevated hemoglobin, Chest pain, Headache, Cellulitis of right lower extremity, Nausea & vomiting Patient Disposition: Home, Self-Care Condition: Stable Instructions: Antibiotic Form, Chest Pain (ED), Cellulitis (ED), Acute Headache (DC), Acute Nausea and Vomiting (DC), Thrombocytopenia (ED) Additional Instructions: Recommend follow-up with primary care physician in the next 2-3 days. You do have some cardiac risk factors so recommend you follow-up either with the manager communication you would previously seen or the name of a manager communication is listed below. Acetaminophen/Tylenol (maximum 4000 mg per day) is safe to take with NSAIDs (ibuprofen/Motrin) for pain relief. If the nausea and vomiting return you can use the oral disintegrating tablets of ondansetron/Zofran prescribed. Given the concern for cellulitis/skin infection, you received the 1st dose of antibiotic in the emergency department with the rest of the course prescribed. Return to the emergency department with any new or worsening symptoms. Rest and maintain your hydration. Patient Language: German Prescriptions: New ibuprofen 600 mg tablet 600 mg PO TID PRN (Reason: pain) Qty: 30 0RF ondansetron 4 mg tablet,disintegrating 4 mg PO Q8H PRN (Reason: nausea and vomiting) Qty: 7 0RF acetaminophen 500 mg capsule 1,000 mg PO Q6H PRN (Reason: pain) Qty: 30 0RF clindamycin HCl 150 mg capsule 450 mg PO TID 5 Days Qty: 42 0RF Rx Instructions: received first dose in ED 10/04/24 PM No Action triamterene-hydrochlorothiazid 37.5-25 mg tablet 1 tablet PO DAILY vilazodone 10 mg tablet 10 mg PO DAILY buspirone 10 mg tablet montelukast 10 mg tablet cyclobenzaprine 10 mg tablet tamsulosin 0.4 mg capsule PO diclofenac sodium 50 mg tablet,delayed release (DR/EC) PO metformin 500 mg tablet extended release 24 hr PO albuterol sulfate [Ventolin HFA] 90 mcg/actuation HFA aerosol inhaler 2 puff inhalation QID PRN (Reason: shortness of breath or wheezing) Qty: 8.5 0RF benzonatate 200 mg capsule 200 mg PO TID PRN (Reason: cough) Qty: 30 0RF nebivolol 20 mg tablet Rybelsus 7 mg tablet PO methylprednisolone [Medrol (Dusty)] 4 mg tablets,dose pack See Rx Instructions .ROUTE .COMPLEX Qty: 21 0RF Rx Instructions: orally per package directions lisinopril 40 mg tablet nebivolol 10 mg tablet aspirin [Adult Aspirin Regimen] 81 mg tablet,delayed release (DR/EC) 81 mg PO DAILY atorvastatin 40 mg tablet dicyclomine 10 mg capsule nortriptyline 50 mg capsule guaifenesin 400 mg tablet PO Jardiance 25 mg tablet Follow-up/Referrals: Ashu,GE Chase [Primary Care Provider] - [place] Rizvi DO [Physician] - (cardiology) Stand Alone Forms: Work/School Release IP Time of Disposition: 22:54
[2024-10-04] MEDS: SODIUM CHLORIDE 0.9% IV 1,000 ML 999 ML IV CONT ×2 (20:11→22:14)
[2024-10-04 20:16] LABS: D Dimer 1.15 ug/mL (<0.48)
--- OUTSIDE RECORDS SUMMARY | 2024-10-04 20:41 | XMS_ITS | Clinical Summary ---
Author Organization [facility] D Address [address] [place] [address] Care Team Providers Care Wool Carder Name Role Phone Jose Manuel Chavarria MD Unavailable [phone] Rena Wakefield Primary Care Provider [phone] Allergies Active Allergy Reactions Criticality Noted Date [...] DAILY 90 tablet 1 024 Active omega 8-prq-yuc-fish oil (Fish OiL) 1,000 mg (120 mg-180 [...] tablet TAKE 1 TABLET(7 MG) BY MOUTH ADJUSTER ELECTRICAL CONTACTS BEFORE BREAKFAST 90 tablet 1 025 Active [...] 2023 Assessment & Plan (2023 9:35 AM EARTHMOVING PLANT OPERATOR): Chronic problem, will check MRI to see if it is progressing. Referred back to Neurosurgery The patient was anxious to start some weighted squats and I recommended that he hold off until we get the imaging Lumbar radiculopathy, acute 2023 Assessment & Plan (2023 9:36 AM EARTHMOVING PLANT OPERATOR): Acute on chronic exacerbation Will check x-rays [...] 2023 Assessment & Plan (2023 9:36 AM EARTHMOVING PLANT OPERATOR): May have an element of greater trochanteric bursitis I did discuss a possible injection which I would be happy to do to see if it helps but he declined today. He prefer to have imaging completed 1st History of spinal fusion 2023 Assessment & Plan (2023 9:37 AM EARTHMOVING PLANT OPERATOR): I would like an MRI before deciding the next step. I would also like the opinion of his neurosurgeon. I have ordered this imaging and he will let me know when it is scheduled Fatty liver 08/09/2023 Assessment & Plan (2023 9:32 AM EARTHMOVING PLANT OPERATOR): Check liver function on lab work Dislocation [...] 02/28/2022 Assessment & Plan (06/25/2024 4:17 PM EARTHMOVING PLANT OPERATOR): Chronic condition, currently uncontrolled I recommended increasing [...] metformin, Jardiance, and Rybelsus for diabetes management. Asbestos Shingle Roofer increased metformin to 2000 mg per day. Hyperglycemia may impede healing, thus avoiding further steroid use is crucial. - Continue current diabetes medications: metformin, Jardiance, and Rybelsus - Monitor blood sugar levels closely - Avoid further steroid use to prevent exacerbation of hyperglycemia Assessment & Plan (06/25/2024 4:16 PM EARTHMOVING PLANT OPERATOR): Chronic condition, controlled Continue with Jardiance, metformin [...] future Assessment & Plan (2023 9:32 AM EARTHMOVING PLANT OPERATOR): Time to check A1c and urine microalbumin, ordered Continue Jardiance and metformin Sleep apnea 08/02/2020 Assessment & Plan (03/27/2024 12:21 PM CDT): Status post surgery Erectile dysfunction due to diseases classified elsewhere 02/06/2020 Overview (10/24/2022): Added automatically from request for surgery [id number] Added automatically from request for surgery [id number] Added automatically from request for surgery [id number] Assessment & Plan (03/27/2024 12:18 PM CDT): [...] 03/27/2024 Abnormal sexual function 02/28/2022 Overview (08/08/2022): [place] I: 300.04 Dysthymic Disorder [place] II: No Diagnosis [place] III: HTN [place] IV: chronic marital discord [place] V; GAF: 68 [place] I: 300.04 Dysthymic Disorder [place] II: No Diagnosis [place] III: HTN [place] IV: chronic marital discord Hern[place] V; GAF: 68 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 [...] Description 09/29/2024 12:30 PM CDT Office Visit [address] [address] Rena Wakefield PA Stress fracture of right fibula with delayed healing, subsequent encounter (Primary Dx); Type 2 diabetes mellitus with hyperlipidemia (HCC); Testicular hypofunction 09/10/2024 12:45 PM EARTHMOVING PLANT OPERATOR Office Visit [address] [address] Rena Wakefield PA Right otitis media with effusion (Primary Dx); Acute bronchitis, unspecified organism; Type 2 diabetes mellitus with hyperlipidemia (HCC); Primary hypertension 09/10/2024 Nurse Triage [address] [address] Rena Wakefield PA 08/05/[address] [address] Maris Deleon PA 07/28/[address] [address] Rena Wakefield PA 07/25/2024 Orders Only [address] [address] Maris Deleon PA from Last 3 Months [...] on file Legal Sex Male 12:20 AM EARTHMOVING PLANT OPERATOR Gender Identity Male 04/30/2020 1:34 PM CDT [...] history exists Medical Devices Implanted Type Area Project Executive Device Identifier Shelf Expiration Date Model / Serial / Lot [employer] [id number] Ams 700 Kit Accessory Penile Prosthesis - [id number] Implanted:Qty: 1 on 05/03/2020 by Jose Manuel Chavarria MD at N/A: Penis [employer]erson [employer] Anamaria 03/03/2025 [id number] / / [id number] [employer] Inc [id number] Ams 700cx Ultrex Inflatable Preconnect Tactile Pump Cylinder - [id number] Implanted:Qty: 1 on 05/03/2020 by Jose Manuel Chavarria MD at N/A: Penis [employer] Anamaria 08/27/2023 [id number] / / [id number] [employer] [id number] Ams 700 Ms Pump Preconnect Inflatable [place] Prosthesis 65ml - [id number] Implanted:Qty: 1 on 05/03/2020 by Jose Manuel Chavarria MD at N/A: Penis [employer] Anamaria 02/25/2022 [id number] / / [id number] Prosthesis Penile Ams 700 Cxr Tactile Pump 18cm Inflatable - [id number] Implanted:Qty: 1 on 05/03/2020 by Jose Manuel Chavarria MD at N/A: Penis Evver 04/10/2021 [id number] / / [id number] Description:Non-clinical carlos meier has demonstrated the penile [...] 08/04/2024 HEMOGLOBIN A1C Routine 07/26/2024 8:24 AM EARTHMOVING PLANT OPERATOR Type 2 diabetes mellitus with hyperlipidemia (HCC) LIPID PANEL Routine 04/19/2024 7:38 AM CDT Type 2 diabetes mellitus with hyperlipidemia (HCC) ALBUMIN CREATININE RATIO, URINE Routine 04/19/2024 7:38 AM CDT BASIC METABOLIC PANEL Routine 04/19/2024 7:36 AM CDT Hyponatremia Meniere's disease, unspecified laterality COLONOSCOPY Routine 03/02/2023 PSA SCREEN Routine 09/05/2022 6:27 AM EARTHMOVING PLANT OPERATOR Screening for prostate cancer from Last 3 Months or Most Recently Relevant to Health Maintenance Results * DIABETES EYE EXAM (08/04/2024) Pathologist [facility] SCRIBED DIABETIC DILATED EYE EXAM Normal us Historical Provider HEALTH MAINTENANCE Final Result * (ABNORMAL) Hemoglobin A1c (07/26/2024 8:24 AM EARTHMOVING PLANT OPERATOR) Pathologist [facility] Hgb A1C 7.0(H) <5.7 % of total [...] diabetes for children. Blood 07/26/2024 8:24 AM EARTHMOVING PLANT OPERATOR 07/26/2024 8:25 AM EARTHMOVING PLANT OPERATOR Rena CAROLINA LAB BLOOD ORDERABLES Final Resul t Performing Organization Address City/[facility]/ZIP Co de Phone Number [facility] [address] [place] [address] * Albumin Creatinine Ratio, Urine (04/19/2024 7:38 [...] URINE ORDERABLES Final Resul t [facility] [address] [address] * Lipid panel (04/19/2024 7:38 AM CDT) [...] LDL-C. Gerry SS et al. CANDELARIA. 2013;310(19): 5113-0955 (http://education.Pradama/faq/XNZ043) Chol/HDL ratio 2.7 <5.0 (calc) [facility] [...] LAB BLOOD ORDERABLES Final Resul t [facility] [employer] [facility] [address] [place] [address] * (ABNORMAL) Basic metabolic panel (04/19/2024 7:36 [...] BLOOD ORDERABLES Final Resul t [facility] [address] [place] [address] * Colonoscopy (03/02/2023) Anatomical Region Laterality Modality Other Historical Provider ENDOSCOPY PROCEDURES Saige l Result * PSA screen (09/05/2022 6:27 AM EARTHMOVING PLANT OPERATOR) PSA 0.41 < OR = 4.00 ng/mL [facility] Comment: The total PSA value from this assay system is standardized against the WHO standard. The test result will be approximately 20% lower when compared to the equimolar-standardized total PSA (Sheila Stockton). Comparison of serial PSA results should be [...] copy faxed has been acknowledged. Queued to: [id number] Blood 09/05/2022 6:27 AM EARTHMOVING PLANT OPERATOR 09/05/2022 6:30 AM EARTHMOVING PLANT OPERATOR Narrative [facility] - 09/06/2022 3:12 AM EARTHMOVING PLANT OPERATOR FASTING:YES FASTING: YES us Rena CAROLINA LAB BLOOD ORDERABLES Final Resul t [facility] [address] [address] [address] from Last 3 Months or Most Recently Relevant to Health Maintenance Insurance [facility] CLAIMS [facility] [place] [facility] CLAIMS [employer] [place] [facility] [employer] [place] Advance Directives For more information, please contact: [phone] * Full Code (Latest Code Status on File) Date Activated Date Inactivated Comments 05/03/2020 11:00 AM 05/04/2020 1:51 PM Care Teams Wool Carder Relationship Specialty Start Date End Date Rena Wakefield PA [facility] [address] [place] [address] PCP - General Critical Care Med 08/08/22 [place] [address] [address] Consulting Physician Urology 05/04/20
--- OUTSIDE RECORDS SUMMARY | 2024-10-04 20:41 | XMS_ITS | Referral Summary ---
Author Organization [facility] D Address [address] [place] [address] Care Team Providers Care Rubber Printing Machine Operator Name Role Phone Jose Manuel Chavarria MD Unavailable [phone] Rena Wakefield Primary Care Provider [phone] Encounters Date Type Department Care Team Description 09/29/2024 12:30 PM CDT Office Visit [address] [address] Rena Wakefield PA Stress fracture of right fibula with delayed healing, subsequent encounter (Primary Dx); Type 2 diabetes mellitus with hyperlipidemia (HCC); Testicular hypofunction 09/10/2024 12:45 PM MICRO COMPUTER SPECIALIST Office Visit [address] [address] Rena Wakefield PA Right otitis media with effusion (Primary Dx); Acute bronchitis, unspecified organism; Type 2 diabetes mellitus with hyperlipidemia (HCC); Primary hypertension 09/10/2024 Nurse Triage [address] [address] Rena Wakefield PA 08/05/[address] [address] Mrais Deleon PA 07/28/[address] [place] [address] Rena Wakefield PA 07/25/2024 Orders Only [facility] [address] [address] Maris Deleon PA from Last [...] DAILY 90 tablet 1 024 Active omega 7-xyq-yfm-fish oil (Fish OiL) 1,000 mg (120 mg-180 [...] tablet TAKE 1 TABLET(7 MG) BY MOUTH DEVELOPMENT GEOLOGIST BEFORE BREAKFAST 90 tablet 1 025 Active [...] 2023 Assessment & Plan (2023 9:35 AM MICRO COMPUTER SPECIALIST): Chronic problem, will check MRI to see if it is progressing. Referred back to Neurosurgery The patient was anxious to start some weighted squats and I recommended that he hold off until we get the imaging Lumbar radiculopathy, acute 2023 Assessment & Plan (2023 9:36 AM MICRO COMPUTER SPECIALIST): Acute on chronic exacerbation Will check x-rays [...] 2023 Assessment & Plan (2023 9:36 AM MICRO COMPUTER SPECIALIST): May have an element of greater trochanteric bursitis I did discuss a possible injection which I would be happy to do to see if it helps but he declined today. He prefer to have imaging completed 1st History of spinal fusion 2023 Assessment & Plan (2023 9:37 AM MICRO COMPUTER SPECIALIST): I would like an MRI before deciding the next step. I would also like the opinion of his neurosurgeon. I have ordered this imaging and he will let me know when it is scheduled Fatty liver 08/09/2023 Assessment & Plan (2023 9:32 AM MICRO COMPUTER SPECIALIST): Check liver function on lab work Dislocation [...] 02/28/2022 Assessment & Plan (06/25/2024 4:17 PM MICRO COMPUTER SPECIALIST): Chronic condition, currently uncontrolled I recommended increasing [...] metformin, Jardiance, and Rybelsus for diabetes management. Engraver Copperplate increased metformin to 2000 mg per day. Hyperglycemia may impede healing, thus avoiding further steroid use is crucial. - Continue current diabetes medications: metformin, Jardiance, and Rybelsus - Monitor blood sugar levels closely - Avoid further steroid use to prevent exacerbation of hyperglycemia Assessment & Plan (06/25/2024 4:16 PM MICRO COMPUTER SPECIALIST): Chronic condition, controlled Continue with Jardiance, metformin [...] future Assessment & Plan (2023 9:32 AM MICRO COMPUTER SPECIALIST): Time to check A1c and urine microalbumin, ordered Continue Jardiance and metformin Sleep apnea 08/02/2020 Assessment & Plan (03/27/2024 12:21 PM CDT): Status post surgery Erectile dysfunction due to diseases classified elsewhere 02/06/2020 Overview (10/24/2022): Added automatically from request for surgery [id number] Added automatically from request for surgery [id number] Added automatically from request for surgery [id number] Assessment & Plan (03/27/2024 12:18 PM CDT): [...] 03/27/2024 Abnormal sexual function 02/28/2022 Overview (08/08/2022): [place] I: 300.04 Dysthymic Disorder [place] II: No Diagnosis [place] III: HTN [place] IV: chronic marital discord [place] V; GAF: 68 [place] I: 300.04 Dysthymic Disorder [place] II: No Diagnosis [place] III: HTN [place] IV: chronic marital discord Williams V; GAF: 68 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 [...] on file Legal Sex Male 12:20 AM MICRO COMPUTER SPECIALIST Gender Identity Male 04/30/2020 1:34 PM CDT [...] on file Medical Devices Implanted Type Area Director Of Customer Acquisition Device Identifier Shelf Expiration Date Model / Serial / Lot [employer] Er[employer] Inc [id number] [facility] 700 Kit Accessory Penile Prosthesis - [id number] Implanted:Qty: 1 on 05/03/2020 by Jose Manuel Chavarria MD at [facility] N/A: Penis Glycosan Scientific Anamaria 03/03/2025 [id number] / / [id number] Curtume [employer] Inc [id number] Ams 700cx Ultrex Inflatable Preconnect Tactile Pump Cylinder - [id number] Implanted:Qty: 1 on 05/03/2020 by Jose Manuel Chavarria MD at [facility] N/A: Penis Jamul Scientific Anamaria 08/27/2023 [id number] / / [id number] [employer] Inc. [id number] Ams 700 Ms Pump Preconnect Inflatable [place] Prosthesis 65ml - [id number] Implanted:Qty: 1 on 05/03/2020 by Jose Manuel Chavarria MD at [facility] N/A: Penis Jamul [employer] Anamaria 02/25/2022 [id number] / / [id number] Prosthesis Penile Ams 700 Cxr Tactile Pump 18cm Inflatable - [id number] Implanted:Qty: 1 on 05/03/2020 by Jose Manuel Chavarria MD at [facility] N/A: Penis [employer] Anamaria 04/10/2021 [id number] / / [id number] Description:Non-clinical carlos ting has demonstrated the penile [...] 08/04/2024 HEMOGLOBIN A1C Routine 07/26/2024 8:24 AM MICRO COMPUTER SPECIALIST Type 2 diabetes mellitus with hyperlipidemia (HCC) LIPID PANEL Routine 04/19/2024 7:38 AM CDT Type 2 diabetes mellitus with hyperlipidemia (HCC) ALBUMIN CREATININE RATIO, URINE Routine 04/19/2024 7:38 AM CDT BASIC METABOLIC PANEL Routine 04/19/2024 7:36 AM CDT Hyponatremia Meniere's disease, unspecified laterality COLONOSCOPY Routine 03/02/2023 PSA SCREEN Routine 09/05/2022 6:27 AM MICRO COMPUTER SPECIALIST Screening for prostate cancer from Last 3 Months or Most Recently Relevant to Health Maintenance Results * DIABETES EYE EXAM (08/04/2024) SCRIBED DIABETIC DILATED EYE EXAM Normal Historical Provider HEALTH MAINTENANCE Final Result * (ABNORMAL) Hemoglobin A1c (07/26/2024 8:24 AM MICRO COMPUTER SPECIALIST) Hgb A1C 7.0(H) <5.7 % of total [...] diabetes for children. Blood 07/26/2024 8:24 AM MICRO COMPUTER SPECIALIST 07/26/2024 8:25 AM MICRO COMPUTER SPECIALIST Rena [place] LAB BLOOD ORDERABLES Final Resul t [facility] [address] [place] [address] * Albumin Creatinine Ratio, Urine (04/19/2024 7:38 AM CDT) Pathologist [facility] Creatinine, ur 164 20 - 320 mg/dL [...] ORDERABLES Final Resul t Performing Organization Address [facility]/ZIP Co de Phone Number [facility] [address] [address] [address] * Lipid panel (04/19/2024 7:38 AM CDT) [...] LDL-C. Gerry SS et al. CANDELARIA. 2013;310(19): 0013-5185 (http://education.Meteor Solutions.H2scan/faq/ERG054) Chol/HDL ratio 2.7 <5.0 (calc) [facility] [...] ORDERABLES Final Resul t Performing Organization Address City/[facility]/ZIP Co de Phone Number [facility] [address] [address] [address] * (ABNORMAL) Basic metabolic panel (04/19/2024 7:36 [...] ORDERABLES Final Resul t Performing Organization Address [facility]/ZIP Co de Phone Number [facility] [address] [address] [address] * Colonoscopy (03/02/2023) Anatomical Region Laterality Modality Other Historical Provider ENDOSCOPY PROCEDURES Saige l Result * PSA screen (09/05/2022 6:27 AM MICRO COMPUTER SPECIALIST) PSA 0.41 < OR = 4.00 ng/mL [...] copy faxed has been acknowledged. Queued to: [id number] Blood 09/05/2022 6:27 AM MICRO COMPUTER SPECIALIST 09/05/2022 6:30 AM MICRO COMPUTER SPECIALIST Narrative [facility] - 09/06/2022 3:12 AM MICRO COMPUTER SPECIALIST FASTING:YES FASTING: YES us Rena [place] LAB BLOOD ORDERABLES Final Resul t [facility] [address] [place] [address] from Last 3 Months or Most Recently Relevant to Health Maintenance Insurance [facility]S [facility] CLAIMS [employer] [place] [facility] CLAIMS BLUE ACCESS [place] Advance Directives For more information, please contact: [phone] * Full Code (Latest Code Status on File) Date Activated Date Inactivated Comments 05/03/2020 11:00 AM 05/04/2020 1:51 PM Care Teams Rubber Printing Machine Operator Relationship Specialty Start Date End Date Rena Wakefield PA [address] [place] [address] PCP - General Critical Care Med 08/08/22 [place] [address] [address] [facility] [address] [place] [address] Consulting Physician Urology 05/04/20
--- OUTSIDE RECORDS SUMMARY | 2024-10-04 20:41 | XMS_ITS | Clinical Summary ---
Author Organization 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 [place] II: No Diagnosis [place] III: HTN [place] IV: chronic marital discord [place] V; GAF: 68 Behavior problem 02/28/2022 Benign [...] (08/08/2022): Added automatically from request for surgery [id number] Added automatically from request for surgery [id number] Hypercholesteremia 04/25/2018 Overview (08/08/2022): Last Assessment & [...] on file Legal Sex Male 8:07 AM PHOTONICS ENGINEERING TECHNOLOGIST Gender Identity Not on file Sexual Orientation Not on file Last Filed Vital Signs Vital Sign Reading Time Taken Comments Blood Pressure 120/60 08/08/2022 9:54 AM PHOTONICS ENGINEERING TECHNOLOGIST Pulse - - Temperature - - Respiratory Rate - - Oxygen Saturation - - Inhaled Oxygen Concentration - - Weight 99.3 kg (219 lb) 08/08/2022 9:54 AM PHOTONICS ENGINEERING TECHNOLOGIST Height 180.3 cm (5' 11 ) 08/08/2022 9:54 AM PHOTONICS ENGINEERING TECHNOLOGIST Body Mass Index 30.54 08/08/2022 9:54 AM PHOTONICS ENGINEERING TECHNOLOGIST Plan of Treatment Health Maintenance Due Date [...] 05/29/2024, , 05/23/2023, Additional history exists Insurance [facility] BLUE ACCESS/TRUE BLUE PPO [facility] [place] [address]
--- OUTSIDE RECORDS SUMMARY | 2024-10-04 20:41 | XMS_ITS | Referral Summary ---
Author Organization [facility] Address [address] [facility] [place] [address] Care Team Providers Care Questioned Documents Examiner Name Role Phone Vanessa Stacy MD Primary Care Provider [phone] Source Comments [facility],non-owned Affiliates and Associated Physician Practices is amultiple site organization consisting of ambulatory clinics and hospital sitesin [place], [place], [place] and [place]. This disclosure is being madepursuant to the Care Everywhere program and may not contain all information available regarding this patient. Last updated 18.[facility] Encounters Date Type Department Care Team Description 09/04/2024 Travel 09/04/2024 2:00 PM LINE CREWMAN Office Visit [facility] [place] [phone] Marshall Morin MD Meniere's disease of right [...] 02/28 Abnormal sexual function 02/28/2022 Overview (02/28/2022): [place] I: 300.04 Dysthymic Disorder [place] II: No Diagnosis [place] III: HTN [place] IV: chronic marital discord [place] V; GAF: 68 Arthropathy of knee 02/28/2022 [...] (02/28/2022): Added automatically from request for surgery [id number] Hypercholesteremia 04/25/2018 Overview (02/28/2022): Last Assessment & [...] Immunizations Name Administration Dates Next Due Covid Ferfics primary monoval ent 12+ yr 0.3mL Purple [...] Comments Blood Pressure 129/81 09/04/2024 1:45 PM LINE CREWMAN Pulse 101 09/04/2024 1:45 PM LINE CREWMAN Temperature 36.7 C (98 F) 03/04/2013 3:23 PM CDT Respiratory Rate 16 01/11/2022 2:0 8 PM CDT Oxygen Saturation 94% 09/04/2024 1:45 PM LINE CREWMAN Inhaled Oxygen Concentration - - Weight 100.8 kg (222 lb 3.2 oz) 09/04/2024 1:45 PM LINE CREWMAN Height 180.3 cm (5' 11 ) 09/04/2024 1:45 PM LINE CREWMAN Body Mass Index 30.99 09/04/2024 1:45 PM LINE CREWMAN Plan of Treatment Upcoming Encounters Date Type Department Care Team (Late st Contact Info) Description 12/11/2024 2:30 PM CDT Office Visit [facility] [address] [place] [address] Marshall Morin MD [address] [place] [address] [place] [address] Medical Devices Implanted Type Area Boilermaking Supervisor Device Identifier Shelf Expiration Date Model / Serial / Lot Ams 700 Penile Implant Other (Type not listed) Description:1.5T AND 3T COND ITIONAL FOR MRI Procedures Procedure Name Priority Date/Time Associated Diagnosis Comments [place] LABYRINTHOTOMY Routine 09/04/2024 2:1 4 PM LINE CREWMAN Meniere's disease of right ear CREATININE - POCT INTERFACED Routine 01/03/2024 4:51 PM CDT HEPATITIS SCREEN ACUTE Routine 2 4:12 PM LINE CREWMAN from Last 3 Months or Most Recently Relevant to Health Maintenance Results * [place] LABYRINTHOTOMY (09/04/2024 2:14 PM LINE CREWMAN) Narrative Marshall Morin MD - 09/04/2024 2:14 PM LINE CREWMAN Marshall Morin MD 09/04/2024 2:26 PM Procedure: [...] - 1.30 mg/dL 01/03/2024 4:53 PM CDT [facility] eGFR 75(L) >=90 mL/min/1.7 3 m2 01/03/2024 4:53 PM CDT [facility] Blood BLOOD SPECIMEN / Unknown 01/03/2024 4:51 PM CDT 01/03/2024 4:53 PM CDT Marshall Morin MD LAB - POINT OF CARE ORDERABLES [facility] [address] [place] [address], [facility] [phone] * HEPATITIS SCREEN ACUTE (06/25/2012 4:12 PM LINE CREWMAN) Hepatitis A Virus Antibody IgM NON-REACTI VE NON-REACT [facility] ([facility]) Comment: Test Performed at: [facility] [address] [place] [address] JOSÉ MIGUEL PARKER DO,MPH Hepatitis B Virus Surface Antigen NON-REACTI VE NON-REACT [facility] ([facility]) Hepatitis B Core Virus Antibody IgM NON-REACTI VE NON-REACT [facility] ([facility]) Hepatitis C Antibody NON-REACTI VE NON-REACT [facility] ([facility]) Signal/Cutoff 0.02 <1.00 [facility] ([facility]) 06/25/2012 4:12 PM LINE CREWMAN 06/25/2012 4:13 PM LINE CREWMAN Peggy Hoyt MD LAB - CHEMISTRY OR DERABLES [facility] ([facility]) from Last 3 Months or Most Recently Relevant to Health Maintenance Care Teams Questioned Documents Examiner Relationship Specialty Start Date End Date Vanessa Stacy MD [address] [place] [address] PCP - General 08/16/22
--- OUTSIDE RECORDS SUMMARY | 2024-10-04 20:41 | XMS_ITS | Patient Health Summary ---
Author Organization [facility] Address [address] [place] [address] Care Team Providers Care Home Therapy Teacher Name Role Phone Vanessa Stacy MD Primary Care Provider [phone] Note from [facility],non-owned Affiliates and Associated Physician Practices is amultiple site organization consisting of ambulatory clinics and hospital sitesin [place], [place], [place] and [place]. This disclosure is being madepursuant to the Care Everywhere program and may not contain all information available regarding this patient. Last updated 18.[facility] Allergies * Bacitracin(Rash) -High Criticality * Cetyl [...] Comments Blood Pressure 129/81 09/04/2024 1:45 PM CARTON MAKER Pulse 101 09/04/2024 1:45 PM CARTON MAKER Temperature 36.7 C (98 F) 03/04/2013 3:23 PM CDT Respiratory Rate 16 01/11/2022 2:08 PM CDT Oxygen Saturation 94% 09/04/2024 1:45 PM CARTON MAKER Inhaled Oxygen Concentration - - Weight 100.8 kg (222 lb 3.2 oz) 09/04/2024 1:45 PM CARTON MAKER Height 180.3 cm (5' 11 ) 09/04/2024 1:45 PM CARTON MAKER Body Mass Index 30.99 09/04/2024 1:45 PM CARTON MAKER Medical Devices Implanted Type Area Psychologist Device Identifier Shelf Expiration Date Model / Serial / Lot Ams 700 Penile Implant Other (Type not listed) Description:1.5T AND 3T COND ITIONAL FOR MRI Procedures * NV LABYRINTHOTOMY(Performed 09/04/2024) Performed for Meniere's disease of right ear * NV LABYRINTHOTOMY(Performed 07/03/2024) Performed for Meniere's disease of right ear * NV LABYRINTHOTOMY(Performed 05/05/2024) Performed for Meniere's disease of right ear * NV LABYRINTHOTOMY(Performed 03/17/2024) Performed for Meniere's disease of right ear * MRI IAC WWO CONTRAST(Performed 01/03/2024) Performed for Sensorineural hearing loss (SNHL) of right ear with restricted hearing of left ear * CREATININE - POCT INTERFACED(Performed 01/03/2024) * NV LABYRINTHOTOMY(Performed 01/03/2024) Performed for Meniere's disease of right ear * NV LABYRINTHOTOMY(Performed 12/19/2023) Performed for Meniere's disease of right ear * AUDIOLOGY/TYMPANOMETRY ORDER(Performed 12/05/2023) * AUDIOLOGY/TYMPANOMETRY ORDER(Performed 05/25/2022) * NV DRAIN/INJECT LARGE JOINT/BURSA(Performed 02/28/2022) Performed for Right lateral epicondylitis * NV DRAIN/INJECT LARGE JOINT/BURSA(Performed 02/28/2022) Performed for Chronic [...] 11/05/2011) * CULTURE AEROBIC(Performed 11/05/2011) Results * NV LABYRINTHOTOMY (09/04/2024 2:14 PM CARTON MAKER) Marshall Boucher MD - 09/04/2024 2:14 PM CARTON MAKER Marshall Morin MD 09/04/2024 2:26 PM [...] Morin MD PROCEDURE/MINOR LOS GICAL ORDERABLES * NV LABYRINTHOTOMY (07/03/2024 4:29 PM CARTON MAKER) Marshall Boucher MD - 07/03/2024 4:29 PM CARTON MAKER Marshall Morin MD 07/03/2024 4:36 PM Procedure: [...] end times, etc Marshall Morin MD Marshall Mroin MD PROCEDURE/MINOR LOS GICAL ORDERABLES * NV LABYRINTHOTOMY (05/05/2024 4:27 PM CDT) Narrative Marshall [...] Morin MD PROCEDURE/MINOR LOS GICAL ORDERABLES * NV LABYRINTHOTOMY (03/17/2024 3:12 PM CDT) Narrative Marshall [...] DATE/TIME OF EXAM: 01/03/2024 5:51 PM, LOCATION [facility] INDICATION: H90.A21: Sensorineural hearing loss (SNHL) of [...] DATE/TIME OF EXAM: 01/03/2024 5:51 PM, LOCATION [facility] INDICATION: H90.A21: Sensorineural hearing loss (SNHL) of [...] Krzysztof Fuller MD on 01/04/2024 1:22 PM Masrhall Morin MD MR ORDERABLES * (ABNORMAL) CREATININE - POCT INTERFACED (01/03/2024 4:51 PM CDT) Creatinine POCT 1.13 0.30 - 1.30 mg/dL 01/03/2024 4:53 PM CDT [facility] eGFR 75(L) >=90 mL/min/1.7 3 m2 01/03/2024 4:53 PM CDT [facility] Blood BLOOD SPECIMEN / Unknown 01/03/2024 4:51 PM CDT 01/03/2024 4:53 PM CDT Marshall Morin MD LAB - POINT OF CARE ORDERABLES [facility] [address] [place] [address], [facility] [phone] * NV LABYRINTHOTOMY (01/03/2024 3:40 PM CDT) Marshall Boucher [...] Morin MD PROCEDURE/MINOR LOS GICAL ORDERABLES * NV LABYRINTHOTOMY (12/19/2023 2:52 PM CDT) Narrative Marshall [...] 4) Wear HPD in noise Kwame Venegas, [facility] Hearing Officer Sobia Puente AUDIOLOGY SERVICES ORDERABLES * AUDIOLOGY/TYMPANOMETRY [...] Amplification (RT) pending medical clearance/interest. Kwame Pittman. [facility] Clinical Hearing Officer [facility]-Department of Otolaryngology/Audiology [facility] [address] [place] [address] ([facility]) [place] [address] [place] Boris Puente AUDIOLOGY SERVICES O RDERABLES * NV DRAIN/INJECT LARGE JOINT/BURSA (02/28/2022 10:07 AM CDT) [...] Maxwell MD PROCEDURE/MINOR SURG ICAL ORDERABLES * NV DRAIN/INJECT LARGE JOINT/BURSA (02/28/2022 10:07 AM CDT) [...] DATE/TIME OF EXAM: 02/28/2022 8:37 AM, LOCATION [facility] INDICATION: M25.512: Pain in left shoulder [...] MORE, DATE/TIME OF EXAM: :37 AM, LOCATION [facility] INDICATION: M25.512: Pain in left shoulder [...] DATE/TIME OF EXAM: 02/28/2022 8:37 AM, LOCATION [facility] INDICATION: M25.521: Pain in right elbow [...] MORE, DATE/TIME OF EXAM: :37 AM, LOCATION [facility] INDICATION: M25.521: Pain in right elbow [...] hearing loss in the left ear. Speech Negative Cutter Thresholds is in good agreement with pure [...] Low sodium diet. Everardo Chang, Ph.D., ELIZABET., [facility] Alum Plant Supervisor Director, Division of Audiology Department of Otolaryngology- Head & Neck Surgery [facility] Everardo Chang PhD AUDIOLOGY SERVICES O MIA [...] on 02/09/2022 1:41 PM . Danny Monreal VISITOR SERVICES REPRESENTATIVE-PHARMACIST INTERN CT ORDERAB LES * CULTURE URINE (04/23/2014 8:36 AM CDT) [facility] Culture Urine No Growth of >100 CFU/ml after 48 Hours [facility] Urine specimen (specimen) URINE SPECIMEN OBTAINED BY CLEAN CATCH PROCEDURE / Unknown 04/23/2014 8:36 AM CDT 04/24/2014 2:42 PM CDT Narrative [facility] - 04/26/2014 9:16 AM CDT TeresoSpecimen#[id number] Tereso Loc/Rm/Bed: LAB// CLN CATCH U Historical Provider LAB - MICROBIOLOG Y ORDERABLES [address] [phone] * (ABNORMAL) CBC W AUTO DIFFERENTIAL (05/15/2013 10:56 AM CDT) Only the most recent of10 resultswithin the time period is included. Pathologist [facility] WBC 9.0 3.8 - 10.8 Thousand/u L [facility] RBC 5.39 4.20 - 5.80 Million/uL [facility] Hemoglobin 17.0 13.2 - 17.1 g/dL [facility] Hematocrit 50.7(H) 38.5 - 50.0 % [facility] MCV 93.9 80.0 - 100.0 fL [facility] MCH 31.5 27.0 - 33.0 pg [facility] MCHC 33.5 32.0 - 36.0 g/dL [facility] RDW 13.6 11.0 - 15.0 % [facility] Platelet 180 140 - 400 Thousand/u L [facility]) Neutrophils Absolute 6021 1500 - 7800 cells/uL [facility] Lymphocyte Absolute 1989 850 - 3900 cells/uL [facility] Monocytes Absolute 819 200 - 950 cells/uL [facility] Eosinophils Absolute 126 15 - 500 cells/uL [facility] Basophils Absolute 45 0 - 200 cells/uL [facility]) Neutrophils % 66.9 % [facility] Lymphocytes % 22.1 % [facility] Monocytes % 9.1 % [facility] Eosinophils % 1.4 % [facility] Basophils % 0.5 % [facility] Comment: Test Performed at: [facility] [address] [place] [address] JOSÉ MIGUEL PARKER DO,MPH Venous blood specimen (specimen) 05/15/2013 10:56 AM CDT 05/15/2013 10:57 AM CDT Peggy Hoyt MD LAB - HEMATOLOGY O RDERABLES [facility] ([facility]) * COMPREHENSIVE METABOLIC PANEL (05/15/2013 10:56 AM CDT) Only the most recent of5 resultswithin the time period is included. Pathologist [facility] Glucose 77 65 - 99 mg/dL [facility] ([facility]) Comment: Fasting reference interval BUN 22 7 - 25 mg/dL [facility]) Creatinine 0.92 0.60 - 1.35 mg/dL [facility]) eGFR non- 99 > OR = 60 mL/min/1. 73m2 [facility]) eGFR 114 > OR = 60 mL/min/1. 73m2 [facility]) BUN/Creatinine Ratio NOT APPLICABLE 6 - 22 (calc) [facility] Sodium 138 135 - 146 mmol/L [facility]) Potassium 4.1 3.5 - 5.3 mmol/L [facility]) Chloride 103 98 - 110 mmol/L [facility]) CO2 25 19 - 30 mmol/L [facility]) Calcium 9.4 8.6 - 10.3 mg/dL [facility]) Protein Total 6.9 6.1 - 8.1 g/dL [facility]) Albumin 4.5 3.6 - 5.1 g/dL [facility]) Globulin 2.4 1.9 - 3.7 g/dL (calc) [facility]) Albumin/Globuli n Ratio 1.9 1.0 - 2.5 (calc) [facility] Bilirubin Total 0.5 0.2 - 1.2 mg/dL [facility]) Alkaline Phosphatase 60 40 - 115 U/L [facility]) AST 24 10 - 40 U/L [facility]) ALT 40 9 - 46 U/L [facility]) Comment: Test Performed at: [facility] [address] [place] [address] JOSÉ MIGUEL PARKER DO,MPH Serum 05/15/2013 10:5 6 AM CDT 05/15/2013 10:57 AM CDT Peggy Hoyt MD LAB - CHEMISTRY OR DERABLES [facility]) * XR KNEE RIGHT 3VW (03/04/2013 [...] (ABNORMAL) HEPATIC FUNCTION PANEL (09/25/2012 4:33 PM CARTON MAKER) Only the most recent of5 resultswithin the [...] 0.1(L) 0.2 - 1.2 mg/dL (calc) [facility]) Alkaline Phosphatase 57 40 - 115 U/L [facility]) AST 23 10 - 40 U/L [facility]) ALT 37 9 - 60 U/L [facility]) Comment: Test Performed at: [facility] [address] [place] [address] JOSÉ MIGUEL PARKER DO,MPH Venous blood specimen (specimen) 09/25/2012 4:33 PM CARTON MAKER 09/25/2012 4:34 PM CARTON MAKER Peggy Hoyt MD LAB - CHEMISTRY OR DERABLES [facility] ([facility]) * (ABNORMAL) CULTURE AEROBIC (06/28/2012 1:00 PM CARTON MAKER) Only the most recent of5 resultswithin the time period is included. Culture SEE NOTE(A) [facility] ([facility]) Comment: CULTURE, AEROBIC BACTERIA MICRO NUMBER: [id number] TEST STATUS: FINAL SPECIMEN SOURCE: SKIN SPECIMEN [...] INCORRECT, PLEASE CONTACT CLIENT SERVICES. PHONE NUMBER: [phone] Test Performed at: [facility] [address] [place] [address] JOSÉ MIGUEL PARKER DO [facility] Skin (tissue) specimen (specimen) (Unspecified) 06/28/2012 1:00 PM CARTON MAKER 06/26/2012 12:39 AM CARTON MAKER Narrative [facility]) - 06/28/2012 1:00 PM CARTON MAKER Specimen Type->Skin Peggy Hoyt MD LAB - MICROBIOLOGY ORDERABLES Performing Organization Address [facility] de Phone Number [facility] * HEPATITIS SCREEN ACUTE (06/25/2012 4:12 PM CARTON MAKER) Hepatitis A Virus Antibody IgM NON-REACTI VE NON-REACT [facility]) Comment: Test Performed at: [facility] [address] [place] [address] JOSÉ MIGUEL PARKER DO,MPH Hepatitis B Virus Surface Antigen NON-REACTI VE NON-REACT [facility] Hepatitis B Core Virus Antibody IgM NON-REACTI VE NON-REACT [facility]) Hepatitis C Antibody NON-REACTI VE NON-REACT [facility]) Signal/Cutoff 0.02 <1.00 [facility]) 06/25/2012 4:12 PM CARTON MAKER 06/25/2012 4:13 PM CARTON MAKER Peggy Hoyt MD LAB - CHEMISTRY OR DERABLES Performing Organization Address [facility] de Phone Number [facility] * CULTURE FUNGUS SKIN HAIR NAILS (11/27/2011 7:00 AM CDT) Culture Fungus SEE NOTE [facility]) Comment: CULTURE, FUNGUS, SKIN, HAIR OR NAILS MICRO NUMBER: [id number] TEST STATUS: FINAL SPECIMEN SOURCE: NECK SPECIMEN QUALITY: ADEQUATE RESULT: No fungal growth at 4 Weeks NO COLLECTION DATE RECEIVED. WE HAVE USED THE DATE THE SPECIMEN WAS RECEIVED BY THIS LABORATORY THE COLLECTION DATE. IF THIS IS INCORRECT, PLEASE CONTACT CLIENT SERVICES. PHONE NUMBER: [phone] Test Performed at: [facility] [address] [place] [address] JOSÉ MIGUEL PARKER DO ENTIRE NECK / Unknown 11/27/2011 7:00 AM CDT 11/02/2011 11:53 PM CDT Narrative [facility]) - 11/27/2011 7:00 AM CDT Preferred Lab:->[facility] Ed Farmer MD LAB - MICROBIOLOGY O RDERABLES [facility]) Care Teams Home Therapy Teacher Relationship Specialty Start Date End Date Vanessa Stacy MD [address] [facility] [address] [place] [address] PCP - General 08/16/22
--- OUTSIDE RECORDS SUMMARY | 2024-10-04 20:41 | XMS_ITS | Continuity of Care Document ---
Author Organization [facility] Address [address] [place] [address] Phone Care Team Providers Care Senior Accountant Name Role Phone Marito Gutierrez MD Unavailable [...] Providers Copied on Encounter Office/outpa tient visit,est, [facility], [address], [id number], [place] tel:[phone] [facility] Right hand (chief complaint) Unilateral primary osteoarthritis of first carpometacarpa l joint, right hand 4 Brenda Devi. [address] [facility] [place] [address], [place], [place], [id number], [place]. tel:[phone] [facility], [address], [id number], tel:[phone] [facility] Right hand and wrist (chief complaint) Unilateral primary osteoarthritis of first carpometacarpa l joint, right handColles' fracture of right radius, sequela 4 Brenda Devi. [address] [facility] [place] [address], [place], [place], [id number], [place]. tel:[phone] Referring Provider: Marito Nowak, [address] [address], [place], [address] . tel:[phone] [facility], [address], [id number], [place] tel:[phone] [facility] Pain in right hand [address] [place] [address], [address], [id number], [place]. tel:[phone] Family History Family Member Type Diagnosis Age [...] ID Authoriza tijosh(s) Sherita Fajardo [facility] [id number] [facility] Claims [place] [id number] Social History Type Description Quantity Date Captured [...] [address] Daron Lizarraga at the [facility]. The results were interpreted as ...1. There [...] [address] Daron Lizarraga at the [facility]. The results were interpreted as ...1. There [...] jobs. He did have x-rays taken at [facility] on July 27, 2023. The x-rays show [...]
--- OUTSIDE RECORDS SUMMARY | 2024-10-04 20:41 | XMS_ITS | Encounter Summary ---
Author Organization [facility] Address [address] [place] [address] Care Team Providers Care Tar Heater Operator Name Role Phone Jose Manuel Chavarria MD Unavailable [phone] Rena Wakefield Primary Care Provider Reason for Visit * Reason Onset Date Comments Cough 09/10/2024 Congestion 09/10/2024 Headache 09/10/2024 Encounter Details Date Type Department Care Team (Late st Contact Info) Description 09/10/2024 Nurse Triage [facility] Family Medicine [address] [address] Rena Wakefield PA [address] [address] Social History Tobacco Use Types [...] on file Legal Sex Male 12:20 AM FRUIT LOADER Gender Identity Male 04/30/2020 1:34 PM CDT [...] see GE Chase, scheduled at 12:45pm. m T LOADER * Telephone Encounter - Patsy Newton RN - 09/10/2024 8:05 AM FRUIT LOADER Complaint: Productive persitent cough, dark phlegm, headache. [...] from the office, can be reached at [phone]. Allergies and preferred pharmacy verified and current. Preferred Pharmacy [id number] - [place], [place] - [address] [place] [address] Allergies as of 09/10/2024 - Reviewed 09/10/2024 [...] after coughing, vomiting after coughing) Protocols used: [id number] T LOADER * Telephone Encounter - Patsy Newton RN - 09/10/2024 8:01 AM FRUIT LOADER Regarding: coughing since Sunday, discharging dark phlegm, constant headache ----- Message from Dalton Soler sent at 09/10/2024 8:01 AM FRUIT LOADER ----- Symptom Based Call Chief Complaint(s): coughing [...] message need to be routed? Yes-Action Needed T LOADER documented in this encounter Plan of Treatment Not on file documented as of this encounter Visit Diagnoses Not on filedocumented in this encounter Care Teams Tar Heater Operator Relationship Specialty Start Date End Date Rena Wakefield PA [address] [place] [address] PCP - General Critical Care Med 08/08/22 [place] [address] [facility] [address] [place] [address] Consulting Physician Urology 05/04/20 documented as of this encounter
--- OUTSIDE RECORDS SUMMARY | 2024-10-04 20:42 | XMS_ITS | Continuity of Care Document ---
Author Organization [facility] Address [address] [place] [address] Phone Care Team Providers Care Industrial Conveyor Belt Repairer Name Role Phone Umair Nieves MD Unavailable [...] Diagnoses Date Provider Providers Copied on Encounter [employer] [facility], [address], [place], [place], [id number], [place] tel:[phone] [facility] No Information Lizbeth Block. [address], [place], [place], [address], [place]. tel:[phone] Referring Provider: Shmuel Vargas, [address], [place], [address]. tel:[phone] [employer], [address], [place], [place], [id number], [place] tel:[phone] [facility] No Information Shanel Lynch. [address], [place], [place], [id number], [place]. tel:[phone] Referring Provider: Shmuel Vargas, [address], [place], [address]. tel:[phone] [facility], [address], [place], [place], [address], tel:[phone] [facility] No Information Cholodayanara Tomás. [address], [place], [place], [id number], [place]. tel:[phone] Referring Provider: Shmuel Vargas, [address], [place], [address]. tel:[phone] Family History Family Member Type Diagnosis Age At Onset No Information Payers Payer name Insurance type Covered libertarian ID Authorkwamea florencio(s) [id number] [facility] [id number] Social History Type Description Quantity Date Captured [...]
--- OUTSIDE RECORDS SUMMARY | 2024-10-04 20:42 | XMS_ITS | Continuity of Care Document ---
Author Organization [facility] Address [address] [place] [address] Phone Care Team Providers Care Community Pharmacist Name Role Phone Lionel Pittman MD Unavailable [...] OFFICE/OUTPA TIENT VISIT EST [facility], [address], [place], [address], tel:[phone] [facility] Lumbar radiculopathy Body mass index (BMI) 32.0-32.9, adult Apr- 7-201 8 Zain Flowers. [address], [place], [place], [address]. tel:[phone] [facility], [address], [place], [address], [place] tel:[phone] [facility] Lumbar radiculopathy 8 Zain Flowers. [address] , [place], [place], [address]. tel:[phone] OFFICE/OUTPA TIENT VISIT EST [facility], [address], [place], [address], [place] tel:[phone] [facility] LBP (chief complaint) Body mass index (BMI) 32.0-32.9, adultLumbar radiculopathy Lumbar foraminal stenosis 7 Zain Flowers. [address] , [place], [place], [address]. tel:[phone] OFFICE/OUTPA TIENT VISIT EST [facility], [address] [address], [place], [address], [place] tel:[phone] [facility] LBP (chief complaint) Body mass index (BMI) 32.0-32.9, adultDJD (degenerative joint disease), lumbosacralLu mbar facet joint pain Apr- 7 Zain Flowers. [address] , [place], [place], [address]. tel:[phone] Referring Provider: Marshall Zuniga, [address] [facility], [place], [address]. tel:[phone] OFFICE/OUTPA TIENT VISIT EST [facility], [address] [facility] [address] [address], [place], [address], [place] tel:[phone] [facility] Low back painFacet arthritis of lumbar regionLumbar foraminal stenosis 7 Alan Eaton . [address], [place], [place], [address]. tel:[phone] [facility], [address] [address], [place], [address], [place] tel:[phone] [facility] No Information 7 No Information Referring Provider: Angelito Cee, [address], [place], [address]. tel:[phone] OFFICE/OUTPA TIENT VISIT NEW [facility], [address], [place], [address], tel:[phone] [facility] Low back painLumbar spondylosisBo dy mass index (BMI) 32.0-32.9, adult 7 [address] Coleman [address] . [address], [place], [place], [address]. tel:[phone] Referring Provider: Marshall Zuniga, [address] , [place], [address]. tel:[phone] Family History Family Member Type Diagnosis Age At Onset Mother Problem (finding) Heart disease Mother/sibli Problem (finding) Diabetes Mother/siste Problem (finding) Cancer, breast Mother Problem (finding) hypertension Mother Problem (finding) stroke Payers Payer name Insurance type Covered republican ID Authoriza tion(s) [facility] Choice/Choice Plus E2 [id number] Social History Type Description Quantity Date Captured [...]
--- OUTSIDE RECORDS SUMMARY | 2024-10-04 20:42 | XMS_ITS | Clinical Summary ---
Author Organization [facility] Address [address] [place] [address] Care Team Providers Care Telecom Analyst Name Role Phone Vanessa Stacy MD Primary Care Provider [phone] Source Comments [facility],non-owned Affiliates and Associated Physician Practices is amultiple site organization consisting of ambulatory clinics and hospital sitesin [place], [place], [place] and [place]. This disclosure is being madepursuant to the Care Everywhere program and may not contain all information available regarding this patient. Last updated 18.[facility] Allergies Active Allergy Reactions Criticality Noted Date [...] 02/28 Abnormal sexual function 02/28/2022 Overview (02/28/2022): Lacey I: 300.04 Dysthymic Disorder Lacey II: No Diagnosis Lacey III: HTN Lacey IV: chronic marital discord Lacey V; GAF: 68 Arthropathy of knee 02/28/2022 [...] (02/28/2022): Added automatically from request for surgery [id number] Hypercholesteremia 04/25/2018 Overview (02/28/2022): Last Assessment & [...] Department Care Team Description 09/04/2024 2:00 PM WAREHOUSER Office Visit [facility] - ENT [address] [place] [address] Marshall Morin MD Meniere's disease of right [...] Comments Blood Pressure 129/81 09/04/2024 1:45 PM WAREHOUSER Pulse 101 09/04/2024 1:45 PM WAREHOUSER Temperature 36.7 C (98 F) 03/04/2013 3:23 PM CDT Respiratory Rate 16 01/11/2022 2:08 PM CDT Oxygen Saturation 94% 09/04/2024 1:45 PM WAREHOUSER Inhaled Oxygen Concentration - - Weight 100.8 kg (222 lb 3.2 oz) 09/04/2024 1:45 PM WAREHOUSER Height 180.3 cm (5' 11 ) 09/04/2024 1:45 PM WAREHOUSER Body Mass Index 30.99 09/04/2024 1:45 PM WAREHOUSER Plan of Treatment Upcoming Encounters Date Type Department Care Team (Late st Contact Info) Description 12/11/2024 2:30 PM CDT Office Visit [facility] - ENT [address] [place] [address] [phone] Marshall Morin MD [address] [place] [address] [place] [address] Health Maintenance Due Date Last Done Comments [...] this topic Medical Devices Implanted Type Area [employer] Crm Developer Device Identifier Shelf Expiration Date Model / Serial / Lot Ams 700 Penile Implant Other (Type not listed) Description:1.5T AND 3T COND ITIONAL FOR MRI Procedures Procedure Name Priority Date/Time Associated Diagnosis Comments AK LABYRINTHOTOMY Routine 09/04/2024 2:1 4 PM WAREHOUSER Meniere's disease of right ear CREATININE - POCT INTERFACED Routine 01/03/2024 4:51 PM CDT HEPATITIS SCREEN ACUTE Routine 2 4:12 PM WAREHOUSER from Last 3 Months or Most Recently Relevant to Health Maintenance Results * AK LABYRINTHOTOMY (09/04/2024 2:14 PM WAREHOUSER) Narrative Marshall Morin MD - 09/04/2024 2:14 PM WAREHOUSER Marshall Morin MD 09/04/2024 2:26 PM Procedure: [...] - 1.30 mg/dL 01/03/2024 4:53 PM CDT [facility] eGFR 75(L) >=90 mL/min/1.7 3 m2 01/03/2024 4:53 PM CDT [facility] Blood BLOOD SPECIMEN / Unknown 01/03/2024 4:51 PM CDT 01/03/2024 4:53 PM CDT Marshall Morin MD LAB - POINT OF CARE ORDERABLES [facility] [address] [place] [address], [facility] [phone] * HEPATITIS SCREEN ACUTE (06/25/2012 4:12 PM WAREHOUSER) Hepatitis A Virus Antibody IgM NON-REACTI VE NON-REACT [facility] ([facility]) Comment: Test Performed at: [facility] [address] [place] [address] JOSÉ MIGUEL PARKER DO,MPH Hepatitis B Virus Surface Antigen NON-REACTI VE NON-REACT [facility] ([facility]) Hepatitis B Core Virus Antibody IgM NON-REACTI VE NON-REACT [facility] ([facility]) Hepatitis C Antibody NON-REACTI VE NON-REACT [facility] ([facility]) Signal/Cutoff 0.02 <1.00 [facility] ([facility]) 06/25/2012 4:12 PM WAREHOUSER 06/25/2012 4:13 PM WAREHOUSER Peggy Hoyt MD LAB - CHEMISTRY OR DERABLES [facility] ([facility]) from Last 3 Months or Most Recently Relevant to Health Maintenance Care Teams Telecom Analyst Relationship Specialty Start Date End Date Vanessa Stacy MD [address] [place] [address] PCP - General 08/16/22
[2024-10-04 20:43] LABS: Thyroid Stimulating Hormone 0.541 uIU/mL (0.465-4.680)
[2024-10-04 20:50] LABS: Influenza A QL RT-PCR Negative (Negative); Influenza B QL RT-PCR Negative (Negative); RSV RNA, RT-PCR Negative (Negative); SARS-CoV-2 RNA PCR Negative (Negative)
[2024-10-04] MEDS: ACETAMINOPHEN 500 MG TABLET 1000 MG PO (21:23)
[2024-10-04] MEDS: CLINDAMYCIN HCL 150 MG CAP 450 MG PO (21:23)
[2024-10-04] MEDS: PROCHLORPERAZINE EDISYLATE 10 MG/2 ML VIAL IV PUSH (21:23)
[2024-10-04] MEDS: diphenhydrAMINE HCl INJ 50 MG/ML VIAL 25 MG IV PUSH (21:23)
[2024-10-04] MEDS: MAGNESIUM SULF 1 GM/D5W 100 ML 1 GM/100 ML BAG IVPB (21:24)
[2024-10-04 22:46] LABS: Troponin I < 0.012 ng/mL (0.000-0.034)
[2024-10-04] MEDS: dexAMETHasone 2 MG TABLET 10 MG PO (23:09)
== END 2024-10-04 23:29 | disposition home or self-care (01) ==
PROVIDERS: Emergency Medicine; Emergency Provider Student in an Organized Health Care Education/Training Program; PCP Physician Assistant
DX: L03.115 Cellulitis of right lower limb (principal); R11.2 Nausea with vomiting, unspecified; R51.9 Headache, unspecified; R07.9 Chest pain, unspecified; D69.6 Thrombocytopenia, unspecified; R71.8 Other abnormality of red blood cells; I10 Essential (primary) hypertension; E11.9 Type 2 diabetes mellitus without complications; J32.9 Chronic sinusitis, unspecified; Z87.891 Personal history of nicotine dependence; Z79.899 Other long term (current) drug therapy; Z79.84 Long term (current) use of oral hypoglycemic drugs; Z79.82 Long term (current) use of aspirin; R00.0 Tachycardia, unspecified; R94.31 Abnormal electrocardiogram [ECG] [EKG]
CPT/HCPCS: 36415; 71046; 71275; 80053; 83690; 84443; 84484; 85025; 85055; 85380; 85610; 85730; 87637; 93005; 96361; 96365; 96375; 99284; A9270; J0780; J1200; J3475; J7030; J8540; Q9967

== ENCOUNTER 2025-06-19 08:12 | Emergency (ER) | payer OTHER, SELFPAY ==
--- NOTE | 2025-06-19 08:21 | ED_ITS ---
HPI - URI/Sore Throat General Chief Complaint: Upper Respiratory Infection Stated Complaint: Drainage, sinus pressure, pressure in ears, eyes i Source: patient, RN notes reviewed and old records reviewed Mode of arrival: ambulatory Limitations: no limitations History of Present Illness HPI Narrative: 59 year old male who presents to [place] [facility] with complaints of sinus congestion and drainage with history of chronic sinus problems, left ear pain,itchy eyes, for the past 2 days. Patient reports that he has been taking Loretta D for his symptoms without improvement Patient reports that he is suppose to return to work on Sunday after being off for extended time due to having stress fracture of right ankle with osteomyelitis and requiring skin grafts and 6 weeks of IV antibiotic. Patient reports tht he has no acute cough or feelings of shortness of breath. MD elicited complaint: rhinorrhea, nasal congestion, sinus pain and other (left ear pain) Pertinent past history: pneumonia and other (chronic sinus problems) Onset (ago): day(s) (2 days ) Consistency: constant Severity: moderate Description of mucous: watery Able to tolerate fluids by mouth: Yes Treatments prior to arrival: other (Loretta D) Related Data Home Medications ?Medication ?Instructions ?Recorded ?Confirmed ?Last Taken ?Type triamterene 37.5 1 tablet PO DAILY 03/20/24 0 10/04/24 Unknown History mg-hydrochlorothiazide 25 mg tablet vilazodone 10 mg tablet 10 mg PO DAILY 03/20/2402/21 Unknown History buspirone 10 mg tablet mg 04/23/24 Unknown History montelukast 10 mg tablet mg 04/23/24 Unknown History nebivolol 20 mg tablet mg 07/26/24 Unknown History semaglutide 7 mg tablet (Rybelsus) mg PO 07/26/24 Unk nown History cyclobenzaprine 10 mg tablet mg 09/08/24 Unknown Hist ory diclofenac sodium 50 mg mg PO 09/08/24 Unknown Hist ory tablet,delayed release metformin 500 mg tablet,extended mg PO 09/08/24 Unkno wn History release 24 hr tamsulosin 0.4 mg capsule mg PO 09/08/24 Unknown Hist ory aspirin 81 mg tablet,delayed 81 mg PO DAILY 10/04/24 0 10/04/24 Unknown History release (Adult Aspirin Regimen) atorvastatin 40 mg tablet mg 10/04/24 Unknown History dicyclomine 10 mg capsule mg 10/04/24 Unknown History empagliflozin 25 mg tablet mg 10/04/24 Unknown Histor y (Jardiance) guaifenesin 400 mg tablet mg PO 10/04/24 Unknown Hist ory lisinopril 40 mg tablet mg 10/04/24 Unknown History nebivolol 10 mg tablet mg 10/04/24 Unknown History nortriptyline 50 mg capsule mg 10/04/24 Unknown Histo ry Allergies Allergy/AdvReac Type Severity Reaction Status Date / Time cephalexin Allergy Mild Rash Verified 06/19/25 08:25 ketorolac Allergy Mild Hives Verified 06/19/25 08:25 bacitracin Allergy Unknown Unknown Verified 06/19/25 08:25 Review of Systems Review of Systems: CONSTITUTIONAL: Reports malaise, no chills, sweats, or fever. EYES: Denies visual changes, redness, or discharge. ENT: Reports rhinorrhea, congestion, sinus pain, left otalgia and no sore throat. CARDIOVASCULAR: Denies chest pain, palpitations, or edema. RESPIRATORY: Reports no acute cough.? Denies dyspnea. GASTROINTESTINAL: Denies abdominal pain, nausea, vomiting, diarrhea SKIN: Denies rash or itching. MUSCULOSKELETAL: Denies myalgia. NEUROLOGIC: Denies headache. All systems reviewed & are unremarkable except as noted in HPI and below PMFSH Past Medical History Medical History (Updated 06/19/25 @ 09:12 by Greta Koehler APRN) Stress fracture of ankle Hypertension Knee pain, chronic Type 2 diabetes mellitus non insulin dependent Hyperlipidemia Chronic sinusitis Surgical History Surgical History (Updated 06/19/25 @ 08:40 by Greta Koehler APRN) H/O skin graft H/O wrist surgery Hx of appendectomy H/O sinus surgery Family History Family History Mother Hypertension Family history of malignant neoplasm Family history of diabetes mellitus in first degree relative Family history of heart disease in male family member before age 55 Diabetes mellitus Sibling Hypertension Family history of malignant neoplasm Diabetes mellitus Social History Social History Smoking status: Former smoker Alcohol intake: current Gender identity (if verbalized by the patient): Male Comments At time of signature, agree with nursing past medical, surgical, social and family history. There is no relevant family history pertinent to the presenting complaint Exam Narrative: GENERAL: Well-appearing, well-nourished, and in no acute distress. HEAD: Normocephalic EYES: PERRLA, conjunctivae clear ENT: Nares clear, turbinates edematous and erythematous, clear discharge. Mucous membranes moist.Left TM red with pain, Right TM pearly herbert with dull light reflex bilaterally; no tragal tenderness. Oropharynx erythematous without lesions. Tonsils not present and without exudate, no drooling, no hoarseness, no trismus, uvula midline, post nasal drainage present. NECK: Supple. No lymphadenopathy CHEST: Clear to auscultation, breath sounds equal. No wheezing, rhonchi, rales, or stridor. No respiratory distress, speaks in full sentences. HEART: Regular rate and rhythm. No murmur heard. SKIN: Warm, dry, no rash. NEURO: Alert and oriented x3. PSYCH: Normal mood and affect Course Course Emergency Course: Patient is aware of diagnosis, understands and agrees to treatment plan.? Anticipatory guidance given.? Patient agrees to follow-up as directed and is aware of reasons to seek care at the emergency department. Portions of this record may have been created with voice recognition software Level of Care: Express Care Visit Vital Signs Vital signs: Vital Signs Temperature 36.7 C 06/19/25 08:22 Pulse Rate 94 06/19/25 08:22 Respiratory Rate 18 06/19/25 08:22 Blood Pressure 127/69 06/19/25 08:22 Pulse Oximetry 100 06/19/25 08:22 Oxygen Delivery Room Air 06/19/25 08:22 Temperature 36.7 C 06/19/25 08:22 Pulse Rate 94 06/19/25 08:22 Respiratory Rate 18 06/19/25 08:22 Blood Pressure 127/69 06/19/25 08:22 Pulse Oximetry 100 06/19/25 08:22 Oxygen Delivery Room Air 06/19/25 08:22 Reviewed MDM - URI/Sore Throat MDM Narrative Medical decision making narrative: Differential diagnosis considered: Floyd virus, strep pharyngitis, allergic rhinitis, upper respiratory tract infection, sinusitis, rhinosinusitis, nasopha ryngitis. viral pharyngitis, otitis media, otitis externa, pneumonia, bronchitis, viral cough syndrome, viral syndrome, and influenza.? Exam findings show no acute concerns or changes; patient is non-toxic appearing and is in no distress.? Patient is appropriate for outpatient treatment and follow-up. Differential Diagnosis Differential diagnosis: Likely upper respiratory infection, otitis media, sinusitis (chronic,) and viral infection Medical Records Attestation: I reviewed the patient's medical records. Lab Data Attestation: I reviewed the patient's lab results. Critical Care Time Critical Care Time Critical Care Time: No Discharge Plan Discharge Clinical Impression: Left otitis media Qualifiers: Otitis media type: serous Chronicity: acute Recurrence: non-recurrent Qualified Code(s): H65.02 - Acute serous otitis media, left ear Chronic sinusitis Qualifiers: Sinusitis location: pansinusitis Qualified Code(s): J32.4 - Chronic pansinusitis Patient Disposition: Home Condition: Stable Instructions: Antibiotic Form, Ear Infection (ED), Rhinosinusitis (ED) Additional Instructions: Increase fluids especially juices and water [id number] cough and cold medicine of your choice for your symptoms Nasal saline daily and p.r.n. Tylenol or ibuprofen for any fever pain per package directions continue your Loretta D heat to the face 20-30 minutes 4-6 times a day for pain Salt water gargles, throat lozenges or throat sprays as desired Antibiotic as directed--finished the medication If your symptoms persist, change or worsen significantly before you can contact your personal physician then please, without delay, go to the emergency department for further evaluation. Follow-up with PCP in 7-10 days or sooner if needed Patient Language: Azerbaijani Prescriptions: New amoxicillin-pot clavulanate 875-125 mg tablet 1 tablet PO Q12H Qty: 20 0RF Rx Instructions: recommend taking probiotic while on this medication, always take with food No Action triamterene-hydrochlorothiazid 37.5-25 mg tablet 1 tablet PO DAILY vilazodone 10 mg tablet 10 mg PO DAILY buspirone 10 mg tablet montelukast 10 mg tablet cyclobenzaprine 10 mg tablet tamsulosin 0.4 mg capsule PO diclofenac sodium 50 mg tablet,delayed release (DR/EC) PO metformin 500 mg tablet extended release 24 hr PO albuterol sulfate [Ventolin HFA] 90 mcg/actuation HFA aerosol inhaler 2 puff inhalation QID PRN (Reason: shortness of breath or wheezing) Qty: 8.5 0RF benzonatate 200 mg capsule 200 mg PO TID PRN (Reason: cough) Qty: 30 0RF nebivolol 20 mg tablet Rybelsus 7 mg tablet PO methylprednisolone [Medrol (Dusty)] 4 mg tablets,dose pack See Rx Instructions .ROUTE .COMPLEX Qty: 21 0RF Rx Instructions: orally per package directions lisinopril 40 mg tablet nebivolol 10 mg tablet aspirin [Adult Aspirin Regimen] 81 mg tablet,delayed release (DR/EC) 81 mg PO DAILY atorvastatin 40 mg tablet dicyclomine 10 mg capsule nortriptyline 50 mg capsule guaifenesin 400 mg tablet PO Jardiance 25 mg tablet ibuprofen 600 mg tablet 600 mg PO TID PRN (Reason: pain) Qty: 30 0RF ondansetron 4 mg tablet,disintegrating 4 mg PO Q8H PRN (Reason: nausea and vomiting) Qty: 7 0RF acetaminophen 500 mg capsule 1,000 mg PO Q6H PRN (Reason: pain) Qty: 30 0RF clindamycin HCl 150 mg capsule 450 mg PO TID 5 Days Qty: 42 0RF Rx Instructions: received first dose in ED 10/04/24 PM Follow-up/Referrals: UNKNOWN,DOCTOR [Primary Care Provider] Time of Disposition: 08:46 Quality [place] Coma Scale Eyes: Open Verbal: Oriented and Alert Motor: Follows Commands Pinky Coma Total Score: 15
[2025-06-19 08:22] VITALS: BP 127/69; PULSE 94; RESP 18; TEMP 36.7; O2SAT 100
== END 2025-06-19 08:51 | disposition home or self-care (01) ==
PROVIDERS: Emergency Provider Registered Nurse
DX: H65.02 Acute serous otitis media, left ear (principal); J32.4 Chronic pansinusitis; I10 Essential (primary) hypertension; E11.9 Type 2 diabetes mellitus without complications; Z79.84 Long term (current) use of oral hypoglycemic drugs; E78.5 Hyperlipidemia, unspecified; Z79.82 Long term (current) use of aspirin; Z87.891 Personal history of nicotine dependence
CPT/HCPCS: 99213; G0463